=== PATIENT | male | born 1950 | race Asian ===

== ENCOUNTER 2018-04-02 12:18 | Outpatient (CLI) | payer MEDICARE, OTHER ==
--- NOTE | 2018-04-02 13:20 | CT Report ---
Reason: ABSCESS Procedure Date: 04/02/2018 Accession Number: [id number] / [id number] Procedure: CT - Facial Bones W/O CPT Code: FULL RESULT: EXAM: CT MAXILLOFACIAL WITHOUT CONTRAST EXAM DATE: 04/02/2018 01:00 PM. CLINICAL HISTORY: Facial swelling and wound. Kidney transplant patient. COMPARISONS: HEAD W/O 12/03/2013. TECHNIQUE: Thin-section axial images were acquired of the face without contrast. Post-processing: Coronal and sagittal reformats. Other: None. In accordance with CT protocol optimization, one or more of the following dose reduction techniques were utilized for this exam: automated exposure control, adjustment of mA and/or KV based on patient size, or use of iterative reconstructive technique. FINDINGS: Soft Tissue: There is asymmetric subcutaneous tissue stranding, fluid and skin thickening of the right face overlying the right zygomatic arch. There is no soft tissue gas. The region of right facial inflammation and subcutaneous fluid does not appear to represent a well organized abscess but measures 63 x 12 x 36 mm. Orbits: Symmetric and unremarkable. Bones: There is cortical thickening of the wall of the left sphenoid sinus suggesting chronic sinus inflammation. Temporomandibular Joints: There is degenerative disease and irregularity of the left temporal mandibular joint. There is no dislocation. Sinuses: There is opacification of the left sphenoid sinus and bilateral maxillary sinuses. Other: There is a large posterior disk osteophyte spur at the C3-C4 level causing central spinal canal narrowing. IMPRESSION: 1. Right facial phlegmon, edema and fluid consistent with cellulitis, infection, or phlegmon. The fluid does not represent a large organized abscess, but could represent multiple smaller abscesses or phlegmon. 2. Bilateral maxillary and left sphenoid sinus inflammatory disease and opacification. Left sphenoid sinus inflammation is most likely chronic given bony changes. 3. C3-C4 spinal canal stenosis secondary to the disk osteophyte spurring [facility]
== END 2018-04-02 12:19 | disposition home or self-care (01) ==
LOC: DI 12:18
PROVIDERS: ATTEND Physician Assistant
DX: R22.0 Localized swelling, mass and lump, head (principal); J32.0 Chronic maxillary sinusitis; J32.3 Chronic sphenoidal sinusitis; M48.02 Spinal stenosis, cervical region; M50.81 Other cervical disc disorders, high cervical region
CPT/HCPCS: 70486

== ENCOUNTER 2018-04-03 16:11 | Emergency (ER) | payer MEDICARE, OTHER ==
[2018-04-03 16:25] VITALS: BP 161/74
--- NOTE | 2018-04-03 16:45 | ED Physician Documentation ---
PD HPI SKIN - Stated complaint Stated Complaint: LUMP ON FACE/SENT BY DR. Dimitry MISTRY - Chief complaint Chief Complaint: General - History obtained from History obtained from: Patient - History of Present Illness Timing - onset: How many days ago (several days of right facial infection. Started with small sore and got bigger, with some draining fluid. Seen in office yesterday and had culture of surface, given IM rocephin and started on Keflex/Bactrim dual abx. Had facial CT outpt showing inflammation without focal coalescence of fluid. Referred to Surgery and seen this afternoon in surgery clinic. No abscess for draining, so Dr. Dimitry Mistry sent patient to the ER for further evaluation. Patient says the area is feeling less pressure and pain today than it did yesterday.) Timing - details: Gradual onset, Still present Location: Face (right side of face over zygoma area) Quality / character: Painful, Swelling, Draining (with small pustules) Associated symptoms: No: Fever, Myalgias, N/V/D Similar symptoms before: Has not had sx before Recently seen: Clinic Review of Systems Constitutional: denies: Fever, Chills, Myalgias Nose: denies: Rhinorrhea / runny nose, Congestion Throat: denies: Sore throat Respiratory: denies: Cough GI: denies: Vomiting, Diarrhea PD PAST MEDICAL HISTORY - Past Medical History Cardiovascular: Hypertension, High cholesterol Respiratory: None Endocrine/Autoimmune: Type 2 diabetes, HyPOthyroidism GI: GERD : Renal insuffiency (with kidney transplant 2006), Other Psych: None Derm: None - Past Surgical History Past Surgical History: Yes General: Cholecystectomy, Appendectomy, 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 (kidney transplant) - Present Medications Home Medications: Ambulatory Orders Medication Instructions Recorded Confirmed Aspirin Chewable [St Americo 81 mg PO DAILY 12/03/13 04/15/14 Aspirin] Carvedilol [Coreg] 50 mg PO DAILY 12/03/13 04/15/14 Cholecalciferol (Vitamin D3) 2,000 unit PO DAILY 12/03/13 04/15/14 [Vitamin D] Cinacalcet HCl [Sensipar] 30 mg PO DAILY 12/03/13 04/15/14 Docusate Sodium 240 mg PO DAILY 12/03/13 04/15/14 Hydrochlorothiazide 25 mg PO DAILY 12/03/13 04/15/14 Krill Oil 500 mg PO DAILY 12/03/13 04/15/14 Leflunomide [Arava] 10 mg PO DAILY 12/03/13 04/15/14 Levothyroxine Sodium [Synthroid] 25 mcg PO DAILY 12/03/13 04/15/14 Magnesium Oxide [Magnesium] 400 mg PO DAILY 12/03/13 04/15/14 Omeprazole [PriLOSEC] 20 mg PO BID 12/03/13 04/15/14 Potassium Chloride 20 meq PO BID 12/03/13 04/15/14 Prenat Vit Comb.10/Iron/FA/Dha 1 each PO DAILY 12/03/13 04/15/14 [Vitafol-Ob+Dha Combo Pack] Rosuvastatin Calcium [Crestor] 20 mg PO DAILY 12/03/13 04/15/14 Tacrolimus [Prograf] 0.5 mg PO DAILY 12/03/13 04/15/14 Telmisartan [Micardis] 80 mg PO DAILY 12/03/13 04/15/14 amLODIPine [Norvasc] 10 mg PO DAILY 12/03/13 04/15/14 cloNIDine HCl [Clonidine HCl] 0.2 mg PO TID 12/03/13 04/15/14 predniSONE [Deltasone] 5 mg PO ONCE 12/03/13 04/15/14 Insulin Aspart [Novolog] 9 units SUBQ AC 04/15/14 04/15/14 Insulin Glargine,Hum.rec.anlog 10 units SUBQ DAILY 04/15/14 04/15/14 [Lantus] hydrALAZINE [Apresoline] 25 mg ORAL DAILY 04/15/14 04/15/14 Doxycycline Monohydrate 100 mg PO BID #14 tablet 04/03/18 Mupirocin 1 applic TP TID #15 oint...g. 04/03/18 - Allergies Allergies/Adverse Reactions: Allergies Allergy/AdvReac Type Severity Reaction Status Date / Time No Known Drug Allergies Allergy Verified 04/03/18 16:25 - Social History Does the pt smoke?: No Smoking Status: Never smoker Does the pt drink ETOH?: No Does the pt have substance abuse?: No - POLST Patient has POLST: No PD ED PE NORMAL - Vitals Vital signs reviewed: Yes - General General: Alert and oriented X 3, No acute distress, Well developed/nourished - HEENT HEENT: Ears normal, Pharynx benign, Other (right zygoma area with rounded, raised reddened area of skin rash with small pustules on surface. No fluctuance. The skin lesion is movable over the zygoma surface. There is local induration/swelling. ) - Neck Neck: Supple, no meningeal sign, No adenopathy - Cardiac Cardiac: RRR, No murmur - Respiratory Respiratory: Clear bilaterally - Derm Derm: Normal color, Warm and dry Results - Vitals Vitals: Vital Signs - 24 hr 04/03/18 16:22 Temperature 36.5 C Heart Rate 87 Respiratory 20 Rate Blood Pressure 161/74 H O2 Saturation 95 Oxygen O2 Source Room air - Labs Labs: Microbiology 04/03/18 17:05 Wound Culture - Preliminary Face - Right Laboratory Tests 04/03/18 17:32 Sodium 133 L Potassium 4.4 Chloride 112 H Carbon Dioxide 14 L Anion Gap 7.0 BUN 62 H Creatinine 2.8 H Estimated GFR (MDRD) 23 L Glucose 406 H Calcium 9.2 PD MEDICAL DECISION MAKING - ED course Complexity details: re-evaluated patient (he does not seem ill and is feeling improved from yesterday. Creatinine and glucose are elevated. No fever. I feel he can be discharged with close follow up, with collaboration of advice from transplant physician. Patient is followed by Nephrology in [place] and the physician directs he follow up initially with him, rather than .), considered differential (facial infection without distinct abscess. Concern that he is immune compromised. But he is not seeming sick and he says the infection site feels improved since starting abx yesterday. ), d/w patient, d/w sediment remediation consultant (insulation manager physician for transplant team at . Directs to check BMP. His Creatinine was 2 last on their labs. She would prefer Doxycycline over Bactrim if Creatinine elevated. And would want Creatinine and Tacrolimus levels checked in 4-5 days. She did not feel he needed to be hospitalized if he is not appearing sick. ) - Sepsis Event Vital Signs: Vital Signs - 24 hr 04/03/18 16:22 Temperature 36.5 C Heart Rate 87 Respiratory 20 Rate Blood Pressure 161/74 H O2 Saturation 95 Oxygen O2 Source Room air Departure - Departure Disposition: 01 Home, Self Care Clinical Impression: Facial abscess Condition: Stable Record reviewed to determine appropriate education?: Yes Instructions: ED Staph Infec Abx Tx Only Follow-Up: Alen March DO [Primary Care Provider] - Prescriptions: Doxycycline Monohydrate 100 mg PO BID #14 tablet Mupirocin 1 applic TP TID #15 oint...g. Comments: The physician insulation manager for the transplant service was concerned about the interaction of the sulfa antibiotic with your kidney function. She would prefer having you on doxycycline. You can take the 2 antibiotics this evening that you are to have. However get the doxycycline tomorrow and stop the sulfa. Use warm moist towels to the facial infection 2-3 times a day and apply mupirocin ointment after that. Recheck if not improving over the next several days. Make an appointment with your primary care in for 2-3 days from now to have your kidney function rechecked in your tacrolimus level checked as well. Return if worsening. Discharge Date/Time: 04/03/18 18:21
[2018-04-03] MEDS ORDERED: HYDROcod/ACETAM 5/325 MG TABLET PO STA (17:26)
[2018-04-03 17:44] LABS: CALCIUM 9.2 mg/dL (8.5-10.3); CREATININE 2.8 mg/dL (0.6-1.2)
== END 2018-04-03 18:21 | disposition home or self-care (01) ==
LOC: ED 16:11
DX: L02.01 Cutaneous abscess of face (principal); I10 Essential (primary) hypertension; E11.9 Type 2 diabetes mellitus without complications; N28.9 Disorder of kidney and ureter, unspecified; Z79.82 Long term (current) use of aspirin; Z79.4 Long term (current) use of insulin; Z94.0 Kidney transplant status
CPT/HCPCS: 36415; 80048; 87070; 87181; 87205; 99283; A9270

== ENCOUNTER 2018-04-09 07:21 | Outpatient (CLI) | payer MEDICARE, OTHER ==
[2018-04-09 07:49] LABS: ALBUMIN 2.9 g/dL (3.2-5.5); ALBUMIN/GLOBULIN RATIO 0.7 (1.0-2.2); BILIRUBIN,TOTAL 0.3 mg/dL (0.2-1.0); CREATININE 2.6 mg/dL (0.6-1.2); TOTAL PROTEIN 7.1 g/dL (6.7-8.2)
== END 2018-04-09 07:22 | disposition home or self-care (01) ==
LOC: LAB 07:21
PROVIDERS: ATTEND Family Medicine
DX: Z94.0 Kidney transplant status (principal)
CPT/HCPCS: 36415; 80053; 80197

== ENCOUNTER 2018-04-12 12:04 | Outpatient (CLI) | payer MEDICARE, OTHER ==
[2018-04-12 19:06] LABS: ALBUMIN 2.7 g/dL (3.2-5.5); ALBUMIN/GLOBULIN RATIO 0.8 (1.0-2.2); BILIRUBIN,TOTAL 0.5 mg/dL (0.2-1.0); CALCIUM 9.2 mg/dL (8.5-10.3); CREATININE 2.3 mg/dL (0.6-1.2); TOTAL PROTEIN 6.3 g/dL (6.7-8.2)
== END 2018-04-12 12:05 | disposition home or self-care (01) ==
LOC: LAB.WCP 12:04
PROVIDERS: ATTEND Family Medicine
DX: Z94.0 Kidney transplant status (principal)
CPT/HCPCS: 36415; 80053

== ENCOUNTER 2018-04-25 07:11 | Outpatient (CLI) | payer MEDICARE, OTHER ==
[2018-04-25 08:59] LABS: BASOPHILS # (AUTO) 0.1 10^3/uL (0.0-0.1); BASOPHILS % (AUTO) 0.8 %; EOSINOPHILS # (AUTO) 0.1 10^3/uL (0.0-0.7); EOSINOPHILS % (AUTO) 0.8 %; HGB - HEMOGLOBIN 12.2 g/dL (14.0-18.0); LYMPHOCYTES % (AUTO) 21.5 %; MEAN CORPUSCULAR HGB CONC 33.1 g/dL (32.0-36.0); MEAN CORPUSCULAR VOLUME 93.7 fL (80.0-94.0); MEAN PLATELET VOLUME 7.8 fL (7.4-11.4); MONOCYTES # (AUTO) 0.9 10^3/uL (0.0-1.0); MONOCYTES % (AUTO) 9.4 %; NEUTROPHILS # (AUTO) 6.4 10^3/uL (1.5-6.6); NEUTROPHILS % (AUTO) 67.5 %; PLT - PLATELET COUNT 279 10^3/uL (130-450); RED BLOOD COUNT 3.93 10^6/uL (4.70-6.10); RED CELL DISTRIBUTION WIDTH 14.9 % (12.0-15.0); WHITE BLOOD COUNT 9.4 x10^3/uL (4.8-10.8)
[2018-04-25 09:04] LABS: ALBUMIN 3.3 g/dL (3.2-5.5); ALBUMIN/GLOBULIN RATIO 0.9 (1.0-2.2); BILIRUBIN,TOTAL 0.6 mg/dL (0.2-1.0); CALCIUM 9.3 mg/dL (8.5-10.3); CREATININE 2.4 mg/dL (0.6-1.2); TOTAL PROTEIN 6.9 g/dL (6.7-8.2)
[2018-04-25 09:10] LABS: BILIRUBIN,URINE NEGATIVE (NEGATIVE); GLUCOSE, URINE (UA) NEGATIVE (NEGATIVE); KETONES,URINE (UA) NEGATIVE (NEGATIVE); LEUKOCYTE ESTERASE, URINE NEGATIVE (NEGATIVE); NITRITE,URINE NEGATIVE (NEGATIVE); OCCULT BLOOD,URINE TRACE-INTA (NEGATIVE); PH,URINE 8.5 PH (5.0-7.5); PROTEIN,URINE >=300 mg/dL (NEGATIVE); UROBILINOGEN,URINE 0.2 (NORMAL) E.U./dL (NORMAL)
[2018-04-25 09:27] LABS: AMORPHOUS SEDIMENT,UR Few /LPF; BACTERIA,URINE Moderate /HPF (None Seen); CLARITY,URINE HAZY (CLEAR); RBC,URINE 0-5 /HPF (0-5); SQUAMOUS EPITHELIAL CELL,UR NONE SEEN (<= Few)
[2018-04-25 09:28] LABS: CRYSTALS,URINE >50 Triple Phos /LPF
[2018-04-25 09:49] LABS: PROTEIN/CREATININE RATIO,URINE 8.5 (<=0.2)
== END 2018-04-25 07:12 | disposition home or self-care (01) ==
LOC: LAB 07:11
PROVIDERS: ATTEND Specialist
DX: R80.9 Proteinuria, unspecified (principal); Z94.0 Kidney transplant status; Z41.8 Encounter for other procedures for purposes other than remedying health state
CPT/HCPCS: 36415; 80053; 80197; 81001; 81599; 82570; 83970; 84156; 85025; 87077; 87086; 87181; 87799

== ENCOUNTER 2018-06-10 18:33 | Observation (INO) | payer MEDICARE, OTHER ==
[2018-06-10 19:15] LABS: BASOPHILS # (AUTO) 0.1 10^3/uL (0.0-0.1); BASOPHILS % (AUTO) 0.8 %; EOSINOPHILS # (AUTO) 0.2 10^3/uL (0.0-0.7); EOSINOPHILS % (AUTO) 1.4 %; HGB - HEMOGLOBIN 12.5 g/dL (14.0-18.0); LYMPHOCYTES # (AUTO) 1.6 10^3/uL (1.5-3.5); LYMPHOCYTES % (AUTO) 12.9 %; MEAN CORPUSCULAR HEMOGLOBIN 31.6 pg (27.0-31.0); MEAN CORPUSCULAR HGB CONC 33.9 g/dL (32.0-36.0); MEAN CORPUSCULAR VOLUME 93.2 fL (80.0-94.0); MONOCYTES # (AUTO) 0.7 10^3/uL (0.0-1.0); MONOCYTES % (AUTO) 5.5 %; NEUTROPHILS # (AUTO) 9.8 10^3/uL (1.5-6.6); NEUTROPHILS % (AUTO) 79.4 %; PLT - PLATELET COUNT 295 10^3/uL (130-450); RED BLOOD COUNT 3.97 10^6/uL (4.70-6.10); RED CELL DISTRIBUTION WIDTH 14.6 % (12.0-15.0); WHITE BLOOD COUNT 12.4 x10^3/uL (4.8-10.8)
[2018-06-10 19:27] LABS: ALBUMIN 3.6 g/dL (3.2-5.5); ALBUMIN/GLOBULIN RATIO 0.9 (1.0-2.2); BILIRUBIN,TOTAL 0.6 mg/dL (0.2-1.0); CALCIUM 9.7 mg/dL (8.5-10.3); CREATININE 3.1 mg/dL (0.6-1.2); TOTAL PROTEIN 7.7 g/dL (6.7-8.2)
[2018-06-10 19:30] LABS: BILIRUBIN,URINE NEGATIVE (NEGATIVE); GLUCOSE, URINE (UA) NEGATIVE (NEGATIVE); KETONES,URINE (UA) NEGATIVE (NEGATIVE); LEUKOCYTE ESTERASE, URINE NEGATIVE (NEGATIVE); NITRITE,URINE NEGATIVE (NEGATIVE); OCCULT BLOOD,URINE NEGATIVE (NEGATIVE); PROTEIN,URINE 100 mg/dL (NEGATIVE); UROBILINOGEN,URINE 0.2 (NORMAL) E.U./dL (NORMAL)
[2018-06-10 19:40] LABS: CLARITY,URINE TURBID (CLEAR)
[2018-06-10] MEDS ORDERED: ONDANSETRON 4 MG/2 ML VIAL IVP STA (20:16)
[2018-06-10] MEDS ORDERED: SODIUM CHLORIDE 0.9% 1,000 ML IV ONE (20:16)
[2018-06-10] MEDS ORDERED: MORPHINE 2 MG/ML CARPUJECT IVP STA (20:16)
--- NOTE | 2018-06-10 20:19 | ED Physician Documentation ---
History of Present Illness - Stated complaint Stated Complaint: STOMACH PX - Chief complaint Chief Complaint: Abd Pain - Additonal information Additional information: hx from pt 68 male s/p kidney transplant 2009 [facility] baseline creat about 2.3 also s/p bladder removal for cancer and has a urostomy an s/p appy chol too to ED with abd pain inset 8 AM today no fever chills no NV no bloody black BM no blood in urine no rad to chest or back pain is to upper abd and is severe pt meds are not yet updated in [place] - I reviewed his list and his meds are as follows tacrolimus, sensipar prednisone synthroid rosuvastatin coreg clonidine norvasc micardis lasix asa mag K PNV Vit D3 prilosec colace insulin NKDA Review of Systems Constitutional: denies: Fever, Chills Cardiac: denies: Chest pain / pressure Respiratory: denies: Dyspnea GI: reports: Abdominal Pain. 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 (kidney transplant) - Present Medications Home Medications: Ambulatory Orders Medication Instructions Recorded Confirmed Aspirin Chewable [St Americo 81 mg PO DAILY 12/03/13 04/15/14 Aspirin] Carvedilol [Coreg] 50 mg PO DAILY 12/03/13 04/15/14 Cholecalciferol (Vitamin D3) 2,000 unit PO DAILY 12/03/13 04/15/14 [Vitamin D] Cinacalcet HCl [Sensipar] 30 mg PO DAILY 12/03/13 04/15/14 Docusate Sodium 240 mg PO DAILY 12/03/13 04/15/14 Hydrochlorothiazide 25 mg PO DAILY 12/03/13 04/15/14 Krill Oil 500 mg PO DAILY 12/03/13 04/15/14 Leflunomide [Arava] 10 mg PO DAILY 12/03/13 04/15/14 Levothyroxine Sodium [Synthroid] 25 mcg PO DAILY 12/03/13 04/15/14 Magnesium Oxide [Magnesium] 400 mg PO DAILY 12/03/13 04/15/14 Omeprazole [PriLOSEC] 20 mg PO BID 12/03/13 04/15/14 Potassium Chloride 20 meq PO BID 12/03/13 04/15/14 Prenat Vit Comb.10/Iron/FA/Dha 1 each PO DAILY 12/03/13 04/15/14 [Vitafol-Ob+Dha Combo Pack] Rosuvastatin Calcium [Crestor] 20 mg PO DAILY 12/03/13 04/15/14 Tacrolimus [Prograf] 0.5 mg PO DAILY 12/03/13 04/15/14 Telmisartan [Micardis] 80 mg PO DAILY 12/03/13 04/15/14 amLODIPine [Norvasc] 10 mg PO DAILY 12/03/13 04/15/14 cloNIDine HCl [Clonidine HCl] 0.2 mg PO TID 12/03/13 04/15/14 predniSONE [Deltasone] 5 mg PO ONCE 12/03/13 04/15/14 Insulin Aspart [Novolog] 9 units SUBQ AC 04/15/14 04/15/14 Insulin Glargine,Hum.rec.anlog 10 units SUBQ DAILY 04/15/14 04/15/14 [Lantus] hydrALAZINE [Apresoline] 25 mg ORAL DAILY 04/15/14 04/15/14 Doxycycline Monohydrate 100 mg PO BID #14 tablet 04/03/18 Mupirocin 1 applic TP TID #15 oint...g. 04/03/18 - Allergies Allergies/Adverse Reactions: Allergies Allergy/AdvReac Type Severity Reaction Status Date / Time No Known Drug Allergies Allergy Verified 04/03/18 16:25 - Social History Does the pt smoke?: No Smoking Status: Never smoker Does the pt drink ETOH?: No Does the pt have substance abuse?: No - Immunizations Immunizations are current?: Yes - POLST Patient has POLST: No PD ED PE NORMAL - Vitals Vital signs reviewed: Yes - General General: Alert and oriented X 3 - Neck Neck: Supple, no meningeal sign - Cardiac Cardiac: RRR - Respiratory Respiratory: No respiratory distress, Clear bilaterally - Abdomen Abdomen: Other (multiple scars, RLQ urostomy, TTP upper abd s distension, aorta palp but does not feel enlarged, no hernia) - Derm Derm: Normal color - Extremities Extremities: No deformity - Neuro Neuro: Alert and oriented X 3 Results - Vitals Vitals: Vital Signs - 24 hr 06/10/18 06/10/18 06/10/18 18:55 19:28 21:05 Temperature 36.5 C Heart Rate 83 74 83 Respiratory 18 16 16 Rate Blood Pressure 198/82 H 175/76 H 162/84 H O2 Saturation 100 100 99 Oxygen O2 Source Room air - Labs Labs: Laboratory Tests 06/10/18 06/10/18 06/10/18 19:08 19:08 19:17 WBC 12.4 H RBC 3.97 L Hgb 12.5 L Hct 37.0 L MCV 93.2 MCH 31.6 H MCHC 33.9 RDW 14.6 Plt Count 295 MPV 8.0 Neut # (Auto) 9.8 H Lymph # (Auto) 1.6 Runnels # (Auto) 0.7 Eos # (Auto) 0.2 Baso # (Auto) 0.1 Absolute Nucleated RBC 0.00 Nucleated RBC % 0.0 Sodium 130 L Potassium 3.8 Chloride 105 Carbon Dioxide 13 L Anion Gap 12.0 BUN 75 H Creatinine 3.1 H Estimated GFR (MDRD) 20 L Glucose 321 H Calcium 9.7 Total Bilirubin 0.6 AST 16 ALT 23 Alkaline Phosphatase 138 H Total Protein 7.7 Albumin 3.6 Globulin 4.1 Albumin/Globulin Ratio 0.9 L Lipase 71 H Urine Color YELLOW Urine Clarity TURBID Urine pH 8.0 H Ur Specific [place] 1.020 Urine Protein 100 H Urine Glucose (UA) NEGATIVE Urine Ketones NEGATIVE Urine Occult Blood NEGATIVE Urine Nitrite NEGATIVE Urine Bilirubin NEGATIVE Urine Urobilinogen 0.2 (NORMAL) Ur Leukocyte Esterase NEGATIVE Urine RBC 0-5 Urine WBC 0-3 Ur Squamous Epith Cells NONE SEEN Urine Crystals 11-25 Triple Phos Amorphous Sediment Few Urine Bacteria Many H Ur Microscopic Review INDICATED Urine Culture Comments INDICATED - Rads (name of study) CTAP Radiology: See rad report (partial SBO with focal transition point to mid abd. diverticulosis s itis, LLQ renal transplant without hydro or perinephric fluid) PD MEDICAL DECISION MAKING - ED course ED course: pt reports no NV and has been having flatus but his CT shows a partial SBO he is approx 10 yr s/p transplant his creat is bumped today likely 2/2 poor PO intake and dehydration at this point initial tx would be bowel rst and IVF will discuss with Rashard hospitalist and surgeon re keeping pt here pag[place]arco a surgeon at [phone] - Dr Mistry agrees to consult onel hospitalist at [phone] will [address] pt in obs addendum - urine showed no WBC but + bacteria - pt states his regulatory consultant in [place] Dr Velásquez recently treated him for bacteria in urine with cipro - spoke again with Dr Agustin hospitalist and he recommends not to give antibiotics in the ED - states the hospitalist team will discuss with the pt regulatory consultant Departure - Departure Disposition: ED Place in Observation Clinical Impression: Partial small bowel obstruction, Dehydration, Renal insufficiency, Hyperglycemia, Bacteria in urine Condition: Fair Discharge Date/Time: 06/10/18 22:12
[2018-06-10 20:31] LABS: AMORPHOUS SEDIMENT,UR Few /LPF; BACTERIA,URINE Many /HPF (None Seen); CRYSTALS,URINE 11-25 Triple Phos /LPF; RBC,URINE 0-5 /HPF (0-5); SQUAMOUS EPITHELIAL CELL,UR NONE SEEN (<= Few)
--- NOTE | 2018-06-10 21:01 | CT Report ---
Reason: abd pain Procedure Date: 06/10/2018 Accession Number: [id number] / [id number] Procedure: CT - Abdomen/Pelvis W/O CPT Code: FULL RESULT: EXAM: CT ABDOMEN AND PELVIS EXAM DATE: 06/10/2018 08:39 PM. CLINICAL HISTORY: Abd pain. COMPARISONS: ABD/PEL 08/20/2006 12:03 AM. TECHNIQUE: Routine helical CT imaging was performed through the abdomen and pelvis. IV contrast: No. Enteric contrast: No. Reconstructions: Coronal and sagittal. In accordance with CT protocol optimization, one or more of the following dose reduction techniques were utilized for this exam: automated exposure control, adjustment of mA and/or KV based on patient size, or use of iterative reconstructive technique. FINDINGS: Lung Bases: Unremarkable. Liver: The liver is normal in size and contour. Gallbladder/Bile Ducts: The gallbladder is surgically absent. Spleen: Normal in size. Pancreas: Normal. Adrenal Glands: Normal. Kidneys: There is atrophy of the [place] kidneys. There is no hydronephrosis of the [place] kidneys. There is a left lower quadrant renal transplant. There is no perinephric fluid collection. No kidney stones or hydronephrosis. Peritoneal Cavity/Bowel: The stomach appears mildly distended. There are multiple dilated small bowel loops. There are several air-fluid levels within the small bowel. Small bowel loops in the left abdomen measures 3.6 cm in diameter. There are a moderate number of diverticula within the colon. There is an ostomy in the right mid abdomen. There is focal narrowing of small bowel loops best seen on coronal images 19-21. There is a transition zone in the central abdomen. There is fecalization of small bowel just proximal to this area. There is mesenteric architectural distortion. There is small intraperitoneal free fluid. Pelvic Organs: Urinary bladder not visualized. Vasculature: There is diffuse calcification of the abdominal aorta without aneurysm. Bones: No significant abnormality. Other: None. IMPRESSION: 1. Findings suspicious for a partial small bowel obstruction with a focal transition zone identified in the central abdomen, coronal image 22. 2. Left lower quadrant renal transplant without hydronephrosis or perinephric fluid collection. 3. Colonic diverticulosis without acute diverticulitis. [facility]
[2018-06-10] MEDS ORDERED: PROCHLORPERAZINE 10 MG/2 ML VIAL IVP PRN (21:29)
[2018-06-10] MEDS ORDERED: SODIUM CHLORIDE FLUSH 0.9% 10 ML SYRINGE IVP PRN (21:29)
[2018-06-10] MEDS ORDERED: MORPHINE 2 MG/ML CARPUJECT IVP PRN (21:29)
[2018-06-10] MEDS ORDERED: oxyCODONE 5 MG TABLET PO PRN ×2 (21:29)
[2018-06-10] MEDS ORDERED: ZOLPIDEM 5 MG TABLET PO PRN (21:29)
[2018-06-10] MEDS ORDERED: ACETAMINOPHEN 325 MG TABLET PO PRN (21:29)
[2018-06-10] MEDS ORDERED: PROMETHAZINE 25 MG/1 ML VIAL IM PRN (21:29)
[2018-06-10] MEDS ORDERED: ONDANSETRON 4 MG/2 ML VIAL IVP PRN (21:29)
--- NOTE | 2018-06-10 21:40 | HISTORY & PHYSICAL EXAMINATION ---
Chief Complaint - Chief Complaint Chief Complaint: Abdominal pain History of Present Illness - Admitted From Admitted From:: Emergency Department - History Obtained From Records Reviewed: Yes History obtained from: Patient Exam Limitations: None - History of Present Illness HPI Comment/Other: Patient is a very pleasant 68-year-old [place] gentleman with a unfortunate complicated past medical history which includes renal transplant in 2009 with chronic kidney disease of his transplanted kidney on immunosuppressants, bladder cancer in 2017 status post bladder, prostate and lymph node resection status post urostomy, insulin-dependent diabetes mellitus, hypertension, hyperlipidemia and hypothyroidism who presented to the emergency department with a chief complaint of abdominal pain. The patient states that he was in his normal state of health until 8 AM this morning. He states that that time he began to experience abdominal pain. He states that it came on suddenly and was located just above his umbilicus. He states that it radiated up and down his mid abdomen. He states that the pain was severe at about 9 out of 10. He states that it was constant but the intensity would go up and down throughout the day varying between a 7 and a 10. He states that the pain was sharp. He states that with the pain he had a decreased appetite and did not eat anything all day. He states that he did try to drink fluid with hot tea, hot water and coffee. He states that he was not nauseated and did not vomit. He denies any diarrhea. He states his last bowel movement was last night but he feels as though he has passed gas today. He denies any abdominal distention. He does admit to having similar symptoms once before after his renal transplant and at that time he states he drove himself to the hospital in [place] and symptoms resolved without him needing to be admitted. He states that when symptoms did not resolve today he finally came into the emergency department. The patient states that the pain did not improve until he received morphine in the emergency department. He states with the morphine his pain is much better. He states that he did eat a small apple early this morning before the pain started. The patient denies any fevers or chills. He denies any flank pain or blood in his urostomy bag. Patient denies any headaches, blurred vision, runny nose, sore throat, nasal congestion, difficulty swallowing, chest pain, cough, shortness of air, orthopnea, PND, increased lower extremity swelling, joint swelling, joint pain, muscle aches, back pain, neck stiffness, recent unintentional weight loss, dizziness, lightheadedness, skin changes, rash, night sweats or any focal neurologic deficits. On presentation to the emergency department the patient was afebrile but was in significant distress due to his abdominal pain and was hypertensive with a blood pressure of 198/82. The patient's heart rate and oxygen saturation were within normal limits. The patient underwent routine lab work which revealed an elevated white blood cell count of 12.4, chronic anemia with a hemoglobin of 12. 5, hyponatremia with a sodium of 130, and elevated creatinine of 3.1 up from a baseline of 2.3 about 2 months ago and hyperglycemia with a blood glucose of 321. The patient did undergo urine analysis of his urine in the urostomy bag which revealed many bacteria with 0-3 WBCs. The patient states that he was treated for a urinary tract infection just over a month ago. The patient finally underwent imaging with an abdominal CT which revealed findings suspicious for a partial small bowel obstruction with a focal transition zone identified in the central abdomen. The emergency room physician spoke with the surgeon electronic equipment maint tech Dr. Mistry who advised that the patient be admitted to the hospitalist team for medical management of partial small bowel obstruction. The patient was placed in observation for partial small bowel obstruction. History - Past Medical History Cardiovascular: reports: Hypertension, High cholesterol Respiratory: reports: None Endocrine/Autoimmune: reports: Type 2 diabetes, HyPOthyroidism GI: reports: GERD : reports: Renal insuffiency (Chronic kidney disease stage IV status post renal transplant), Other (Renal transplant in 2009 with ongoing chronic kidney disease stage IV, Bladder cancer status post bladder resection, prostatectomy and lymph node resection in 2017.) Psych: reports: None Derm: reports: None - Past Surgical History General: reports: Cholecystectomy, Appendectomy, Colonoscopy /FINANCIAL EXAMINER: reports: Other (kidney transplant, Bladder resection, prostatectomy, lymph node resection) - Family & Social History Family History: Mother: (Mother and father both at young age of unknown causes.), Father: , Brother: , Other family: Hypertension (Daughter) Family History Comment/Other: The patient's father at the age of 55 and his 2 brothers in their 50s. The patient does not know the cause of their . He states that his mother when he was 8 years old and he does not know the cause of her either. He does state that his daughter has hypertension. Living arrangement: At home Living Situation: With spouse/s.o. Social History Notes: The patient lives in [place] with his . They have been for 47 years. They have 3 children together. The patient is originally from the [facility] and moved to the [facility] in 1967. He is retired [employer]. He states that he used to smoke 1 or 2 cigarettes a day for about 5 years but quit in 1977. He states that he used to drink socially but also quit drinking in 1977. He denies any illicit drug use. - POLST Patient has POLST: No POLST Status: Full Code Meds/Allgy - Home Medications Home Medications: Ambulatory Orders Medication Instructions Recorded Confirmed Aspirin Chewable [[place] 81 mg PO DAILY 12/03/13 04/15/14 Aspirin] Carvedilol [Coreg] 50 mg PO DAILY 12/03/13 04/15/14 Cholecalciferol (Vitamin D3) 2,000 unit PO DAILY 12/03/13 04/15/14 [Vitamin D] Cinacalcet HCl [Sensipar] 30 mg PO DAILY 12/03/13 04/15/14 Docusate Sodium 240 mg PO DAILY 12/03/13 04/15/14 Hydrochlorothiazide 25 mg PO DAILY 12/03/13 04/15/14 Krill Oil 500 mg PO DAILY 12/03/13 04/15/14 Leflunomide [Arava] 10 mg PO DAILY 12/03/13 04/15/14 Levothyroxine Sodium [Synthroid] 25 mcg PO DAILY 12/03/13 04/15/14 Magnesium Oxide [Magnesium] 400 mg PO DAILY 12/03/13 04/15/14 Omeprazole [PriLOSEC] 20 mg PO BID 12/03/13 04/15/14 Potassium Chloride 20 meq PO BID 12/03/13 04/15/14 Prenat Vit Comb.10/Iron/FA/Dha 1 each PO DAILY 12/03/13 04/15/14 [Vitafol-Ob+Dha Combo Pack] Rosuvastatin Calcium [Crestor] 20 mg PO DAILY 12/03/13 04/15/14 Tacrolimus [Prograf] 0.5 mg PO DAILY 12/03/13 04/15/14 Telmisartan [Micardis] 80 mg PO DAILY 12/03/13 04/15/14 amLODIPine [Norvasc] 10 mg PO DAILY 12/03/13 04/15/14 cloNIDine HCl [Clonidine HCl] 0.2 mg PO TID 12/03/13 04/15/14 predniSONE [Deltasone] 5 mg PO ONCE 12/03/13 04/15/14 Insulin Aspart [Novolog] 9 units SUBQ AC 04/15/14 04/15/14 Insulin Glargine,Hum.rec.anlog 10 units SUBQ DAILY 04/15/14 04/15/14 [Lantus] hydrALAZINE [Apresoline] 25 mg ORAL DAILY 04/15/14 04/15/14 Doxycycline Monohydrate 100 mg PO BID #14 tablet 04/03/18 Mupirocin 1 applic TP TID #15 oint...g. 04/03/18 - Allergies Allergies/Adverse Reactions: Allergies Allergy/AdvReac Type Severity Reaction Status Date / Time No Known Drug Allergies Allergy Verified 04/03/18 16:25 Review of Systems - Other Findings Other Findings: A comprehensive review of systems was performed the pertinent positives and nega tives are stated above in the HPI and the remainder of the review of systems is negative. Prior Level of Functionality: The patient is completely independent with all his activities of daily living. Exam - Vital Signs Reviewed Vital Signs: Yes Vital Signs: Vital Signs x48h Temp Pulse Resp BP Pulse Ox 06/10/18 21:05 83 16 162/84 H 99 06/10/18 19:28 74 16 175/76 H 100 06/10/18 18:55 36.5 C 83 18 198/82 H 100 - Physical Exam General Appearance: positive: No acute distress, Alert Eyes Bilateral: positive: Normal inspection, PERRL, EOMI, No lid inflammation, Conjunctivae nml, No scleral icterus ENT: positive: ENT inspection nml, Pharynx nml, Dry mucous membranes. negative: Purulent nasal drainage, Pharyngeal erythema, Oral lesions Neck: positive: Nml inspection, Thyroid nml, No JVD, Trachea midline. negative: Thyromegaly, Lymphadenopathy (R), Lymphadenopathy (L), Stiff neck, Carotid bruit, Tracheal deviation Respiratory: positive: Chest non-tender, No respiratory distress, Breath sounds nml. negative: Wheezes, Rales, Rhonchi Cardiovascular: positive: Regular rate & rhythm, No murmur, No gallop Peripheral Pulses: positive: 2+ Abdomen: positive: No organomegaly, Tenderness (Mild tenderness in the periumbilical area above his urostomy bag. There is mild distention. No rebound, guarding or any peritoneal signs.), Abnml bowel sounds (Decreased bowel sounds), Other (Urostomy bag in place and surrounding skin looks clean). negative: Guarding, Rebound, Hepatomegaly Back: positive: Nml inspection. negative: CVA tenderness (R), CVA tenderness (L) Skin: positive: Color nml, No rash, Warm, Dry. negative: Cyanosis, Diaphoresis, Pallor, Decubitus Extremities: positive: Non-tender, Full ROM, Nml appearance, No pedal edema Neurologic/Psychiatric: positive: Oriented x3, CN's nml (2-12), Motor nml, Sensation nml, Mood/affect nml Conclusion/Plan - Problem List (1) Partial small bowel obstruction Conclusion/Plan: Patient is a 68-year-old gentleman with an extensive history of surgeries including a renal transplant, bladder resection, prostatectomy, appendectomy and cholecystectomy who presented to the emergency department with abdominal pain that was sudden in onset. The pain was associated with decreased appetite and remained constant throughout the day. On presentation to the emergency department the patient had a mild leukocytosis, was hyponatremic and hyperglycemic. The patient's CT abdomen/pelvis revealed a small bowel obstruction with a focal transition zone in the central abdomen. Patient was placed in observation for medical management of small bowel obstruction. Plan: IV fluids N.p.o. except meds IV morphine for pain control IV Zofran and Compazine for nausea control Surgical consultation Patient would likely need to be transferred to a tertiary care center Hospital in the case that he needed surgical intervention for this small bowel obstruction as he is a very complicated patient on immunosuppressants with renal transplant and chronic kidney disease stage IV and a complicated surgical history. (2) Acute on chronic renal failure Conclusion/Plan: Patient has acute on chronic kidney failure. The patient has a transplanted kidney which has now developed chronic kidney disease with CKD stage IV. His creatinine from 2 months ago was 2.3 but on presentation today he has acute on chronic renal failure with a creatinine of 3.1 and a BUN of 75. The patient is acidotic with a bicarb of 13. The patient still has good urine output and potassium is within normal limits. The patient appears to be dry on examination and was unable to tolerate much throughout the day due to his partial small bowel obstruction. Patient appears to have some mild prerenal azotemia from dehydration. Plan: IV fluids Avoid nephrotoxic agents Continue Prograf Monitor creatinine and electrolytes daily. Qualifiers: Acute renal failure type: unspecified Chronic kidney disease stage: stage 4 (severe) Qualified Code(s): N17.9 - Acute kidney failure, unspecified; N18.4 - Chronic kidney disease, stage 4 (severe) (3) UTI (urinary tract infection) Conclusion/Plan: The patient presented with abdominal pain and leukocytosis. Patient did have a partial small bowel obstruction and acute on chronic renal failure. Patient also underwent a urine analysis which did reveal 0-3 WBCs with bacteria. Given that the patient is immune O compromised due to immunosuppressants for his renal transplant we will treat the patient's bacteriuria with IV antibiotics. Plan: IV ceftriaxone IV fluids Consult with patient's top hat body maker and transplant specialist to see if antibiotics should be continued Follow-up urine culture Qualifiers: Urinary tract infection type: catheter-associated UTI Indwelling urinary catheter type: cystostomy catheter Encounter type: initial encounter Qualified Code(s): T83.510A - Infection and inflammatory reaction due to cystostomy catheter, initial encounter; N39.0 - Urinary tract infection, site not specified (4) History of renal transplant Conclusion/Plan: Patient is a history of a renal transplant in 2008. The patient is unaware of the cause of his renal failure however he states he did get a biopsy prior to his transplant. My guess is likely patient had renal failure secondary to hypertension and diabetes. He now appears to have chronic kidney disease of his current transplanted kidney with CKD stage IV. The patient presented with acu te on chronic renal failure and his creatinine is now up to 3.1. The patient also appears to have a urinary tract infection as he did have bacteria growing in his urostomy bag on urine analysis. Plan: Continue immunosuppressants with Prograf Monitor renal function IV fluids Avoid nephrotoxic agents Treat urinary tract infection with IV antibiotics Consult with patient's top hat body maker and transplant specialist in the morning to get further recommendations. (5) Hypertension Conclusion/Plan: Patient has a history of hypertension and on presentation the patient's blood pressure is significantly elevated at 198/82. It appears this was likely secondary to his pain as after the morphine the patient's blood pressure did settle down. Patient's blood pressure however is still elevated. We will continue the patient on his home antihypertensive medications. Likely patient's blood pressure has been worsening due to his chronic kidney disease. We will m onitor his blood pressure and titrate medications as needed. Qualifiers: Hypertension type: essential hypertension Qualified Code(s): I10 - Esse ntial (primary) hypertension (6) Diabetes Conclusion/Plan: The patient does have a history of insulin-dependent diabetes. According to the patient he does not take Lantus and is only using NovoLog with meals at home. On presentation the patient's blood glucose is significantly elevated at 321. This may be due to ongoing stress due to his small bowel obstruction as well as ongoing urinary tract infection. Plan: Patient be placed on NPO sliding scale insulin Patient will be n.p.o. 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 Patient's sodium on presentation is 130 which is down from a normal baseline. The patient appears to have hypovolemic hyponatremia. Patient will be given IV fluids and we will continue to monitor his sodium. (8) Hypothyroidism Conclusion/Plan: Patient has a history of hypothyroidism and is on 25 mg of levothyroxine at home. We will continue his home dose of levothyroxine and check his TSH in the morning. Qualifiers: Hypothyroidism type: unspecified Qualified Code(s): E03.9 - Hypothyroidism, unspecified (9) Hyperlipidemia Conclusion/Plan: The patient has a history of hyperlipidemia. The patient is on statin at home. We will continue the patient on Lipitor while he is hospitalized. Qualifiers: Hyperlipidemia type: unspecified Qualified Code(s): E78.5 - Hyperlipidemia, unspecified - Lab Results Lab results reviewed: Yes Fish Bones: 06/10/18 19:08 06/10/18 19:08 Other Lab Results: Laboratory Results WBC 12.4 x10^3/uL (4.8-10.8) H 06/10/18 19:08 RBC 3.97 10^6/uL (4.70-6.10) L 06/10/18 19:08 Hgb 12.5 g/dL (14.0-18.0) L 06/10/18 19:08 Hct 37.0 % (42.0-52.0) L 06/10/18 19:08 MCV 93.2 fL (80.0-94.0) 06/10/18 19:08 MCH 31.6 pg (27.0-31.0) H 06/10/18 19:08 MCHC 33.9 g/dL (32.0-36.0) 06/10/18 19:08 RDW 14.6 % (12.0-15.0) 06/10/18 19:08 Plt Count 295 10^3/uL (130-450) 06/10/18 19:08 MPV 8.0 fL (7.4-11.4) 06/10/18 19:08 Neut # (Auto) 9.8 10^3/uL (1.5-6.6) H 06/10/18 19:08 Lymph # (Auto) 1.6 10^3/uL (1.5-3.5) 06/10/18 19:08 [place] # (Auto) 0.7 10^3/uL (0.0-1.0) 06/10/18 19:08 Eos # (Auto) 0.2 10^3/uL (0.0-0.7) 06/10/18 19:08 Baso # (Auto) 0.1 10^3/uL (0.0-0.1) 06/10/18 19:08 Absolute Nucleated RBC 0.00 x10^3/uL 06/10/18 19:08 Nucleated RBC % 0.0 /100WBC 06/10/18 19:08 Sodium 130 mmol/L (135-145) L 06/10/18 19:08 Potassium 3.8 mmol/L (3.5-5.0) 06/10/18 19:08 Chloride 105 mmol/L (101-111) 06/10/18 19:08 Carbon Dioxide 13 mmol/L (21-32) L 06/10/18 19:08 Anion Gap 12.0 (6-13) 06/10/18 19:08 BUN 75 mg/dL (6-20) H 06/10/18 19:08 Creatinine 3.1 mg/dL (0.6-1.2) H 06/10/18 19:08 Estimated GFR (MDRD) 20 (>89) L 06/10/18 19:08 Glucose 321 mg/dL (70-100) H 06/10/18 19:08 Calcium 9.7 mg/dL (8.5-10.3) 06/10/18 19:08 Total Bilirubin 0.6 mg/dL (0.2-1.0) 06/10/18 19:08 AST 16 IU/L (10-42) 06/10/18 19:08 ALT 23 IU/L (10-60) 06/10/18 19:08 Alkaline Phosphatase 138 IU/L (42-121) H 06/10/18 19:08 Total Protein 7.7 g/dL (6.7-8.2) 06/10/18 19:08 Albumin 3.6 g/dL (3.2-5.5) 06/10/18 19:08 Globulin 4.1 g/dL (2.1-4.2) 06/10/18 19:08 Albumin/Globulin Ratio 0.9 (1.0-2.2) L 06/10/18 19:08 Lipase 71 U/L (22-51) H 06/10/18 19:08 Urine Color YELLOW 06/10/18 19:17 Urine Clarity TURBID (CLEAR) 06/10/18 19:17 Urine pH 8.0 PH (5.0-7.5) H 06/10/18 19:17 Ur Specific [place] 1.020 (1.002-1.030) 06/10/18 19:17 Urine Protein 100 mg/dL (NEGATIVE) H 06/10/18 19:17 Urine Glucose (UA) NEGATIVE mg/dL (NEGATIVE) 06/10/18 19:17 Urine Ketones NEGATIVE mg/dL (NEGATIVE) 06/10/18 19:17 Urine Occult Blood NEGATIVE (NEGATIVE) 06/10/18 19:17 Urine Nitrite NEGATIVE (NEGATIVE) 06/10/18 19:17 Urine Bilirubin NEGATIVE (NEGATIVE) 06/10/18 19:17 Urine Urobilinogen 0.2 (NORMAL) E.U./dL (NORMAL) 06/10/18 19:17 Ur Leukocyte Esterase NEGATIVE (NEGATIVE) 06/10/18 19:17 Urine RBC 0-5 /HPF (0-5) 06/10/18 19:17 Urine WBC 0-3 /HPF (0-3) 06/10/18 19:17 Ur Squamous Epith Cells NONE SEEN (<= Few) 06/10/18 19:17 Urine Crystals 11-25 Triple Phos /LPF 06/10/18 19:17 Amorphous Sediment Few /LPF 06/10/18 19:17 Urine Bacteria Many /HPF (None Seen) H 06/10/18 19:17 Ur Microscopic Review INDICATED 06/10/18 19:17 Urine Culture Comments INDICATED 06/10/18 19:17 - Diagnostic Imaging Results Diagnostic Imaging Results: positive: Final report reviewed Diagnostic Imaging Results Comments: CT abdomen/pelvis Impression: 1. Findings suspicious for his partial small bowel obstruction with a focal transition zone identified in the central abdomen. 2. Left lower quadrant renal transplant without hydronephrosis or perinephric fluid collection. 3. Colonic diverticulosis without acute diverticulitis. Core Measures - Anticipated LOS I expect patient to be DC'd or transferred within 96 hours.: Yes - DVT/VTE - Prophylaxis VTE/DVT Device ordered at admit?: Yes
[2018-06-10] MEDS ORDERED: predniSONE 5 MG TABLET PO SCH (22:00)
[2018-06-10] MEDS ORDERED: SODIUM CHLORIDE 0.9% 1,000 ML IV SCH (22:00)
[2018-06-10] MEDS: cloNIDine 0.1 MG TABLET PO SCH (22:41)
[2018-06-10] MEDS: SODIUM CHLORIDE 0.9% 1,000 ML IV SCH (22:57)
[2018-06-10] MEDS ORDERED: cefTRIAXone 1 GM in SODIUM CHLORIDE 0.9% MINIBAG 100 ML IV SCH (23:00)
[2018-06-11] MEDS: SODIUM CHLORIDE FLUSH 0.9% 10 ML SYRINGE IVP SCH ×2 (00:15→12:56)
[2018-06-11] MEDS: INSULIN REGULAR HUMAN 100 UNIT/1 ML 10 ML MDV SUBQ SCH ×3 (00:31→12:20)
[2018-06-11 05:29] LABS: BASOPHILS # (AUTO) 0.1 10^3/uL (0.0-0.1); BASOPHILS % (AUTO) 0.7 %; EOSINOPHILS % (AUTO) 0.3 %; HGB - HEMOGLOBIN 11.9 g/dL (14.0-18.0); LYMPHOCYTES # (AUTO) 1.1 10^3/uL (1.5-3.5); LYMPHOCYTES % (AUTO) 9.1 %; MEAN CORPUSCULAR HEMOGLOBIN 31.4 pg (27.0-31.0); MEAN CORPUSCULAR HGB CONC 33.7 g/dL (32.0-36.0); MEAN CORPUSCULAR VOLUME 93.2 fL (80.0-94.0); MEAN PLATELET VOLUME 7.7 fL (7.4-11.4); MONOCYTES # (AUTO) 0.7 10^3/uL (0.0-1.0); MONOCYTES % (AUTO) 5.7 %; NEUTROPHILS # (AUTO) 10.5 10^3/uL (1.5-6.6); NEUTROPHILS % (AUTO) 84.2 %; PLT - PLATELET COUNT 249 10^3/uL (130-450); RED BLOOD COUNT 3.77 10^6/uL (4.70-6.10); WHITE BLOOD COUNT 12.5 x10^3/uL (4.8-10.8)
[2018-06-11 05:35] LABS: INR 0.9 (0.8-1.2); PT - PROTHROMBIN TIME 10.7 secs (9.9-12.6)
[2018-06-11 05:42] LABS: ALBUMIN/GLOBULIN RATIO 0.8 (1.0-2.2); BILIRUBIN,TOTAL 0.7 mg/dL (0.2-1.0); CALCIUM 9.1 mg/dL (8.5-10.3); CREATININE 2.5 mg/dL (0.6-1.2); MAGNESIUM 2.1 mg/dL (1.7-2.8); PHOSPHORUS 3.9 mg/dL (2.5-4.6); TOTAL PROTEIN 6.7 g/dL (6.7-8.2)
[2018-06-11 05:49] LABS: HB2 TOTAL 12.5 g/dL; HEMOGLOBIN A1C 1.04 g/dL; HEMOGLOBIN A1C % 9.8 % (4.6-6.2)
[2018-06-11] MEDS: cloNIDine 0.1 MG TABLET PO SCH ×2 (06:39→13:21)
[2018-06-11] MEDS ORDERED: LEVOTHYROXINE 25 MCG TABLET PO SCH (07:00)
[2018-06-11] MEDS ORDERED: PANTOPRAZOLE 40 MG VIAL IVP SCH (07:00)
[2018-06-11] MEDS ORDERED: ATORVASTATIN 40 MG TABLET PO SCH (09:00)
[2018-06-11] MEDS ORDERED: INSULIN GLARGINE 300 UNIT/3 ML PEN SUBQ SCH (09:00)
[2018-06-11] MEDS ORDERED: amLODIPine 5 MG TABLET PO SCH (09:00)
[2018-06-11] MEDS ORDERED: MAGNESIUM OXIDE 400 MG TABLET PO SCH (09:00)
[2018-06-11] MEDS ORDERED: ASPIRIN CHEW 81 MG TABLET PO SCH (09:00)
[2018-06-11] MEDS ORDERED: hydroCHLOROthiazide 25 MG TABLET PO SCH (09:00)
[2018-06-11] MEDS ORDERED: POLYETHYLENE GLYCOL 3350 17 GM PACKET PO SCH (09:00)
[2018-06-11] MEDS ORDERED: ROSUVASTATIN CALCIUM 20 MG PO SCH (09:00)
[2018-06-11] MEDS ORDERED: LEFLUNOMIDE 10 MG PO SCH (09:00)
[2018-06-11] MEDS ORDERED: NON FORMULARY MED (Telmisartan [Micardis] 80 MG) PO SCH (09:00)
[2018-06-11] MEDS ORDERED: CINACALCET HCL 30 MG PO SCH (09:00)
[2018-06-11] MEDS ORDERED: hydrALAZINE 25 MG TABLET PO SCH (09:00)
[2018-06-11] MEDS ORDERED: CHOLECALCIFEROL 1,000 UNIT TABLET PO SCH (09:00)
[2018-06-11] MEDS ORDERED: LOSARTAN 50 MG TABLET PO SCH (09:00)
[2018-06-11] MEDS ORDERED: TACROLIMUS 0.5 MG CAPSULE PO SCH ×3 (09:00→21:00)
--- NOTE | 2018-06-11 11:52 | PROVIDER PROGRESS NOTE ---
Subjective - Prog Note Date Prog Note Date: 06/11/18 Prog Note Time: 11:50 - Subjective Pt reports feeling: Improved Current Medications - Current Medications Current Medications: Active Medications Acetaminophen (Tylenol) 650 mg PO Q4HR PRN PRN Reason: Pain 1 to 4 Amlodipine Besylate (Norvasc) 10 mg PO DAILY [facility] Last Admin: 06/11/18 08:18 Dose: 10 mg Aspirin ([place] Aspirin) 81 mg PO DAILY [facility] Last Admin: 06/11/18 08:18 Dose: 81 mg Atorvastatin Calcium (Lipitor) 40 mg PO DAILY [facility] Last Admin: 06/11/18 08:19 Dose: 40 mg Cholecalciferol (Vitamin D3) 2,000 unit PO DAILY [facility] Last Admin: 06/11/18 08:19 Dose: 2,000 unit Clonidine HCl (Catapres) 0.2 mg PO TID [facility] Last Admin: 06/11/18 06:39 Dose: 0.2 mg Hydralazine HCl (Apresoline) 25 mg PO DAILY [facility] Last Admin: 06/11/18 08:15 Dose: Not Given Hydrochlorothiazide (Hydrodiuril) 25 mg PO DAILY [facility] Last Admin: 06/11/18 08:19 Dose: 25 mg Ceftriaxone Sodium 1 gm/ (Sodium Chloride) 100 mls @ 200 mls/hr IV Q24H [facility] Last Infusion: 06/11/18 00:14 Dose: Infused Sodium Chloride (Normal Saline 0.9%) 1,000 mls @ 75 mls/hr IV .[id number] [facility] Stop: 06/12/18 01:35 Last Admin: 06/10/18 22:57 Dose: 75 mls/hr Insulin Glargine (Lantus Solostar) 10 unit SUBQ DAILY [facility] Last Admin: 06/11/18 08:15 Dose: Not Given Insulin Human Regular (Novolin R) 1 - 5 unit SUBQ Q6HR [facility]; Protocol Last Admin: 06/11/18 06:40 Dose: 1 unit Levothyroxine Sodium (Synthroid) 25 mcg PO QDAC [facility] Last Admin: 06/11/18 06:39 Dose: 25 mcg Losartan Potassium (Cozaar) 100 mg PO DAILY [facility] Last Admin: 06/11/18 08:20 Dose: 100 mg Magnesium Oxide (Mag Ox) 400 mg PO DAILY [facility] Last Admin: 06/11/18 08:20 Dose: 400 mg Morphine Sulfate (Morphine (Carpuject)) 2 mg IVP Q2HR PRN PRN Reason: Pain 8 to 10 Last Admin: 06/11/18 03:52 Dose: 2 mg Non-Formulary Medication (Carvedilol [Coreg]) 50 mg PO DAILY [facility] Non-Formulary Medication (Cinacalcet Hcl [Sensipar]) 30 mg PO DAILY [facility] Ondansetron HCl (Zofran Inj) 4 mg IVP Q6HR PRN PRN Reason: Nausea / Vomiting Last Admin: 06/11/18 03:52 Dose: 4 mg Oxycodone HCl (Roxicodone) 5 mg PO Q4HR PRN PRN Reason: Pain 5 to 7 Last Admin: 06/11/18 00:30 Dose: 5 mg Oxycodone HCl (Roxicodone) 10 mg PO Q4HR PRN PRN Reason: Pain 8 to 10 Pantoprazole Sodium (Protonix) 40 mg IVP BIDAC [facility] Last Admin: 06/11/18 06:41 Dose: 40 mg Polyethylene Glycol (Miralax) 17 gm PO DAILY [facility] Last Admin: 06/11/18 08:21 Dose: Not Given Prochlorperazine Edisylate (Compazine Inj) 10 mg IVP Q6HR PRN PRN Reason: Nausea / Vomiting Promethazine HCl (Phenergan Inj) 25 mg IM Q6HR PRN PRN Reason: Nausea / Vomiting Sodium Chloride (Normal Saline Flush 0.9%) 10 ml IVP PRN PRN PRN Reason: NEEDED PER PROVIDER ORDERS Last Admin: 06/11/18 06:39 Dose: 10 ml Sodium Chloride (Normal Saline Flush 0.9%) 10 ml IVP 0100,0900,1700 [facility] Last Admin: 06/11/18 00:15 Dose: Not Given Tacrolimus (Prograf) 1 mg PO DAILY [facility] Last Admin: 06/11/18 08:20 Dose: 1 mg Tacrolimus (Prograf) 0.5 mg PO QPM [facility] Zolpidem Tartrate (Ambien) 5 mg PO QPM PRN PRN Reason: Insomnia Aspirin Chewable [[place]o Aspirin] 81 mg PO DAILY 12/03/13 Carvedilol [Coreg] 50 mg PO BID 12/03/13 Cholecalciferol (Vitamin D3) [Vitamin D] 2,000 unit PO DAILY 12/03/13 Cinacalcet HCl [Sensipar] 30 mg PO Q48H 12/03/13 Krill Oil 500 mg PO DAILY 12/03/13 Levothyroxine Sodium [Synthroid] 25 mcg PO DAILY 12/03/13 Magnesium Oxide [Magnesium] 400 mg PO DAILY 12/03/13 Omeprazole [PriLOSEC] 20 mg PO DAILY 12/03/13 Potassium Chloride 20 meq PO BID 12/03/13 Prenat Vit Comb.10/Iron/FA/Dha [Vitafol-Ob+Dha Combo Pack] 1 each PO DAILY 12/03/13 Rosuvastatin Calcium [Crestor] 20 mg PO DAILY 12/03/13 Telmisartan [Micardis] 80 mg PO DAILY 12/03/13 amLODIPine [Norvasc] 10 mg PO DAILY 12/03/13 cloNIDine HCl [Clonidine HCl] 0.2 mg PO TID 12/03/13 predniSONE [Deltasone] 5 mg PO DAILY 12/03/13 Insulin Aspart [Novolog] 7 - 12 units SUBQ AC 04/15/14 Insulin Glargine,Hum.rec.anlog [Lantus] 20 units SUBQ DAILY 04/15/14 Docusate Calcium 240 mg PO DAILY 06/11/18 Furosemide 20 mg PO DAILY 06/11/18 Tacrolimus [Prograf] 0.5 mg PO QPM 06/11/18 Tacrolimus [Prograf] 1 mg PO DAILY 06/11/18 Objective - Vital Signs/Intake & Output Reviewed Vital Signs: Yes Vital Signs: Vital Signs x48h Temp Pulse Resp BP Pulse Ox 06/11/18 11:41 36.8 C 73 18 161/65 H 99 06/11/18 08:04 37.0 C 72 18 157/67 H 99 06/11/18 06:18 36.8 C 75 20 177/72 H 98 Intake & Output: Intake & Output 06/09/18 06/09/18 06/10/18 06/11/18 00:59 23:59 23:59 23:59 Intake Total 1028 100 Output Total 275 1150 Balance 753 -1050 - Objective General Appearance: positive: No acute distress, Alert Eyes Bilateral: positive: Normal inspection, PERRL ENT: positive: ENT inspection nml, Pharynx nml, No signs of dehydration Neck: positive: Nml inspection, Thyroid nml, No JVD, Trachea midline Respiratory: positive: Chest non-tender, No respiratory distress, Breath sounds nml Cardiovascular: positive: No gallop, Systolic murmur, Decreased pulse(s) Peripheral Pulses: 1+ Radial (R), 1+ Radial (L) Abdomen: positive: Non-tender Back: positive: Nml inspection Skin: positive: No rash, Warm, Dry Extremities: positive: Non-tender, Full ROM, Nml appearance Neurologic/Psychiatric: positive: Oriented x3, CN's nml (2-12), Motor nml, Sensation nml, Mood/affect nml Reflexes: Bicep (R): 3+, Bicep (L): 3+ - Lab Results Fish Bones: 06/11/18 05:18 06/11/18 05:18 Other Labs: Lab Results x24hrs 06/11/18 06/11/18 06/11/18 Range/Units 11:31 06:22 05:18 WBC (4.8-10.8) x10^3/uL RBC (4.70-6.10) 10^6/uL Hgb (14.0-18.0) g/dL Hct (42.0-52.0) % MCV (80.0-94.0) fL MCH (27.0-31.0) pg MCHC (32.0-36.0) g/dL RDW (12.0-15.0) % Plt Count (130-450) 10^3/uL MPV (7.4-11.4) fL Neut # (Auto) (1.5-6.6) 10^3/uL Lymph # (Auto) (1.5-3.5) 10^3/uL [place] # (Auto) (0.0-1.0) 10^3/uL Eos # (Auto) (0.0-0.7) 10^3/uL Baso # (Auto) (0.0-0.1) 10^3/uL Absolute Nucleated RBC x10^3/uL Nucleated RBC % /100WBC PT (9.9-12.6) secs INR (0.8-1.2) Sodium (135-145) mmol/L Potassium (3.5-5.0) mmol/L Chloride (101-111) mmol/L Carbon Dioxide (21-32) mmol/L Anion Gap (6-13) BUN (6-20) mg/dL Creatinine (0.6-1.2) mg/dL Estimated GFR (MDRD) (>89) Glucose (70-100) mg/dL POC Whole Bld Glucose 167 H 169 H (70 - 100) mg/dL Glycated Hemoglobin (4.6-6.2) % Estim Average Glucose (70-100) Lactic Acid 0.5 (0.5-2.2) mmol/L Calcium (8.5-10.3) mg/dL Phosphorus (2.5-4.6) mg/dL Magnesium (1.7-2.8) mg/dL Total Bilirubin (0.2-1.0) mg/dL AST (10-42) IU/L ALT (10-60) IU/L Alkaline Phosphatase (42-121) IU/L Total Protein (6.7-8.2) g/dL Albumin (3.2-5.5) g/dL Globulin (2.1-4.2) g/dL Albumin/Globulin Ratio (1.0-2.2) Lipase (22-51) U/L Urine Color Urine Clarity (CLEAR) Urine pH (5.0-7.5) PH Ur Specific [place] (1.002-1.030) Urine Protein (NEGATIVE) mg/dL Urine Glucose (UA) (NEGATIVE) mg/dL Urine Ketones (NEGATIVE) mg/dL Urine Occult Blood (NEGATIVE) Urine Nitrite (NEGATIVE) Urine Bilirubin (NEGATIVE) Urine Urobilinogen (NORMAL) E.U./dL Ur Leukocyte Esterase (NEGATIVE) Urine RBC (0-5) /HPF Urine WBC (0-3) /HPF Ur Squamous Epith Cells (<= Few) Urine Crystals /LPF Amorphous Sediment /LPF Urine Bacteria (None Seen) /HPF Ur Microscopic Review Urine Culture Comments 06/11/18 06/11/18 06/11/18 Range/Units 05:18 05:18 05:18 WBC (4.8-10.8) x10^3/uL RBC (4.70-6.10) 10^6/uL Hgb (14.0-18.0) g/dL Hct (42.0-52.0) % MCV (80.0-94.0) fL MCH (27.0-31.0) pg MCHC (32.0-36.0) g/dL RDW (12.0-15.0) % Plt Count (130-450) 10^3/uL MPV (7.4-11.4) fL Neut # (Auto) (1.5-6.6) 10^3/uL Lymph # (Auto) (1.5-3.5) 10^3/uL [place] # (Auto) (0.0-1.0) 10^3/uL Eos # (Auto) (0.0-0.7) 10^3/uL Baso # (Auto) (0.0-0.1) 10^3/uL Absolute Nucleated RBC x10^3/uL Nucleated RBC % /100WBC PT 10.7 (9.9-12.6) secs INR 0.9 (0.8-1.2) Sodium 134 L (135-145) mmol/L Potassium 3.2 L (3.5-5.0) mmol/L Chloride 111 (101-111) mmol/L Carbon Dioxide 14 L (21-32) mmol/L Anion Gap 9.0 (6-13) BUN 70 H (6-20) mg/dL Creatinine 2.5 H (0.6-1.2) mg/dL Estimated GFR (MDRD) 26 L (>89) Glucose 187 H (70-100) mg/dL POC Whole Bld Glucose (70 - 100) mg/dL Glycated Hemoglobin 9.8 H (4.6-6.2) % Estim Average Glucose 235 H (70-100) Lactic Acid (0.5-2.2) mmol/L Calcium 9.1 (8.5-10.3) mg/dL Phosphorus 3.9 (2.5-4.6) mg/dL Magnesium 2.1 (1.7-2.8) mg/dL Total Bilirubin 0.7 (0.2-1.0) mg/dL AST 24 (10-42) IU/L ALT 22 (10-60) IU/L Alkaline Phosphatase 123 H (42-121) IU/L Total Protein 6.7 (6.7-8.2) g/dL Albumin 3.0 L (3.2-5.5) g/dL Globulin 3.7 (2.1-4.2) g/dL Albumin/Globulin Ratio 0.8 L (1.0-2.2) Lipase (22-51) U/L Urine Color Urine Clarity (CLEAR) Urine pH (5.0-7.5) PH Ur Specific [place] (1.002-1.030) Urine Protein (NEGATIVE) mg/dL Urine Glucose (UA) (NEGATIVE) mg/dL Urine Ketones (NEGATIVE) mg/dL Urine Occult Blood (NEGATIVE) Urine Nitrite (NEGATIVE) Urine Bilirubin (NEGATIVE) Urine Urobilinogen (NORMAL) E.U./dL Ur Leukocyte Esterase (NEGATIVE) Urine RBC (0-5) /HPF Urine WBC (0-3) /HPF Ur Squamous Epith Cells (<= Few) Urine Crystals /LPF Amorphous Sediment /LPF Urine Bacteria (None Seen) /HPF Ur Microscopic Review Urine Culture Comments 06/11/18 06/11/18 06/10/18 Range/Units 05:18 00:17 22:31 WBC 12.5 H (4.8-10.8) x10^3/uL RBC 3.77 L (4.70-6.10) 10^6/uL Hgb 11.9 L (14.0-18.0) g/dL Hct 35.1 L (42.0-52.0) % MCV 93.2 (80.0-94.0) fL MCH 31.4 H (27.0-31.0) pg MCHC 33.7 (32.0-36.0) g/dL RDW 14.0 (12.0-15.0) % Plt Count 249 (130-450) 10^3/uL MPV 7.7 (7.4-11.4) fL Neut # (Auto) 10.5 H (1.5-6.6) 10^3/uL Lymph # (Auto) 1.1 L (1.5-3.5) 10^3/uL [place] # (Auto) 0.7 (0.0-1.0) 10^3/uL Eos # (Auto) 0.0 (0.0-0.7) 10^3/uL Baso # (Auto) 0.1 (0.0-0.1) 10^3/uL Absolute Nucleated RBC 0.00 x10^3/uL Nucleated RBC % 0.0 /100WBC PT (9.9-12.6) secs INR (0.8-1.2) Sodium (135-145) mmol/L Potassium (3.5-5.0) mmol/L Chloride (101-111) mmol/L Carbon Dioxide (21-32) mmol/L Anion Gap (6-13) BUN (6-20) mg/dL Creatinine (0.6-1.2) mg/dL Estimated GFR (MDRD) (>89) Glucose (70-100) mg/dL POC Whole Bld Glucose 262 H 253 H (70 - 100) mg/dL Glycated Hemoglobin (4.6-6.2) % Estim Average Glucose (70-100) Lactic Acid (0.5-2.2) mmol/L Calcium (8.5-10.3) mg/dL Phosphorus (2.5-4.6) mg/dL Magnesium (1.7-2.8) mg/dL Total Bilirubin (0.2-1.0) mg/dL AST (10-42) IU/L ALT (10-60) IU/L Alkaline Phosphatase (42-121) IU/L Total Protein (6.7-8.2) g/dL Albumin (3.2-5.5) g/dL Globulin (2.1-4.2) g/dL Albumin/Globulin Ratio (1.0-2.2) Lipase (22-51) U/L Urine Color Urine Clarity (CLEAR) Urine pH (5.0-7.5) PH Ur Specific [place] (1.002-1.030) Urine Protein (NEGATIVE) mg/dL Urine Glucose (UA) (NEGATIVE) mg/dL Urine Ketones (NEGATIVE) mg/dL Urine Occult Blood (NEGATIVE) Urine Nitrite (NEGATIVE) Urine Bilirubin (NEGATIVE) Urine Urobilinogen (NORMAL) E.U./dL Ur Leukocyte Esterase (NEGATIVE) Urine RBC (0-5) /HPF Urine WBC (0-3) /HPF Ur Squamous Epith Cells (<= Few) Urine Crystals /LPF Amorphous Sediment /LPF Urine Bacteria (None Seen) /HPF Ur Microscopic Review Urine Culture Comments 06/10/18 06/10/18 06/10/18 Range/Units 19:17 19:08 19:08 WBC 12.4 H (4.8-10.8) x10^3/uL RBC 3.97 L (4.70-6.10) 10^6/uL Hgb 12.5 L (14.0-18.0) g/dL Hct 37.0 L (42.0-52.0) % MCV 93.2 (80.0-94.0) fL MCH 31.6 H (27.0-31.0) pg MCHC 33.9 (32.0-36.0) g/dL RDW 14.6 (12.0-15.0) % Plt Count 295 (130-450) 10^3/uL MPV 8.0 (7.4-11.4) fL Neut # (Auto) 9.8 H (1.5-6.6) 10^3/uL Lymph # (Auto) 1.6 (1.5-3.5) 10^3/uL [place] # (Auto) 0.7 (0.0-1.0) 10^3/uL Eos # (Auto) 0.2 (0.0-0.7) 10^3/uL Baso # (Auto) 0.1 (0.0-0.1) 10^3/uL Absolute Nucleated RBC 0.00 x10^3/uL Nucleated RBC % 0.0 /100WBC PT (9.9-12.6) secs INR (0.8-1.2) Sodium 130 L (135-145) mmol/L Potassium 3.8 (3.5-5.0) mmol/L Chloride 105 (101-111) mmol/L Carbon Dioxide 13 L (21-32) mmol/L Anion Gap 12.0 (6-13) BUN 75 H (6-20) mg/dL Creatinine 3.1 H (0.6-1.2) mg/dL Estimated GFR (MDRD) 20 L (>89) Glucose 321 H (70-100) mg/dL POC Whole Bld Glucose (70 - 100) mg/dL Glycated Hemoglobin (4.6-6.2) % Estim Average Glucose (70-100) Lactic Acid (0.5-2.2) mmol/L Calcium 9.7 (8.5-10.3) mg/dL Phosphorus (2.5-4.6) mg/dL Magnesium (1.7-2.8) mg/dL Total Bilirubin 0.6 (0.2-1.0) mg/dL AST 16 (10-42) IU/L ALT 23 (10-60) IU/L Alkaline Phosphatase 138 H (42-121) IU/L Total Protein 7.7 (6.7-8.2) g/dL Albumin 3.6 (3.2-5.5) g/dL Globulin 4.1 (2.1-4.2) g/dL Albumin/Globulin Ratio 0.9 L (1.0-2.2) Lipase 71 H (22-51) U/L Urine Color YELLOW Urine Clarity TURBID (CLEAR) Urine pH 8.0 H (5.0-7.5) PH Ur Specific [place] 1.020 (1.002-1.030) Urine Protein 100 H (NEGATIVE) mg/dL Urine Glucose (UA) NEGATIVE (NEGATIVE) mg/dL Urine Ketones NEGATIVE (NEGATIVE) mg/dL Urine Occult Blood NEGATIVE (NEGATIVE) Urine Nitrite NEGATIVE (NEGATIVE) Urine Bilirubin NEGATIVE (NEGATIVE) Urine Urobilinogen 0.2 (NORMAL) (NORMAL) E.U./dL Ur Leukocyte Esterase NEGATIVE (NEGATIVE) Urine RBC 0-5 (0-5) /HPF Urine WBC 0-3 (0-3) /HPF Ur Squamous Epith Cells NONE SEEN (<= Few) Urine Crystals 11-25 Triple Phos /LPF Amorphous Sediment Few /LPF Urine Bacteria Many H (None Seen) /HPF Ur Microscopic Review INDICATED Urine Culture Comments INDICATED ABX Reporting Has patient been on IV antibiotics over the past 48 hours?: Yes Assessment/Plan - Problem List (1) Partial small bowel obstruction Impression: The patient has an extensive PMhx including a (2) UTI (urinary tract infection) Qualifiers: Urinary tract infection type: catheter-associated UTI Indwelling urinary catheter type: cystostomy catheter Encounter type: initial encounter Qualified Code(s): T83.510A - Infection and inflammatory reaction due to cystostomy catheter, initial encounter; N39.0 - Urinary tract infection, site not specified (3) Diabetes mellitus type 2 with complications, uncontrolled Impression: The patient is prescribed Novolog at home that he takes as a sliding scale with meals. This morning, he was found to have a fasting BS on lab of 187, and an elevated hemoglobin A1C of 9.8%. He refused his Lantus as he states that he has had bad experience with this at home several years ago when he nearly passed out from becoming hypoglycemic. His lunch time meal was resumed at just clear liquid, and for dinner, he will be advanced to full liquid as he has not had any worsening of his abdominal pain. Plan: Change insulin SS, to with meals, and offer Lantus daily.
[2018-06-11] MEDS: SODIUM CHLORIDE 0.9% 1,000 ML IV SCH (12:21)
--- NOTE | 2018-06-11 13:14 | XRAY Report ---
Reason: f/u SBO Procedure Date: 06/11/2018 Accession Number: [id number] / [id number] Procedure: XR - Abdomen 2 View X-Ray CPT Code: 46573 FULL RESULT: EXAM: ABDOMEN RADIOGRAPHY EXAM DATE: 06/11/2018 12:20 PM. CLINICAL HISTORY: Follow-up small bowel obstruction. COMPARISON: 10/15/2010 9:57 AM ABDOMEN/PELVIS W/O 06/10/2018 8:34 PM. TECHNIQUE: 2 views. FINDINGS: Lung Bases: Unremarkable. Bowel Gas Pattern: There are dilated small bowel loops measuring up to 4.1 cm in caliber with air-fluid levels and there is a paucity of large bowel gas, obstructive bowel gas pattern. Free Air: None. Other: None. IMPRESSION: Small bowel obstruction. RADIA The above findings of persistent small bowel obstruction with increasing dilation were discussed with Fabi Uriatre by Dr. Earnest Cuadra at 13:12 hrs on 06/11/18.
[2018-06-11] MEDS ORDERED: CARVEDILOL 50 MG PO SCH (14:30)
--- NOTE | 2018-06-11 16:31 | CONSULTATION NOTE ---
Referring Provider Name of Referring Provider:: Dr. Gomez Consult Date: 06/11/18 Chief Complaint - Chief Complaint Chief Complaint: abd pain History of Present Illness - Admitted From Admitted From:: ER - History Obtained From Records Reviewed: yes History obtained from: pt, records Exam Limitations: none - History of Present Illness HPI Comment/Other: 68 yo male with sudden onset of severe generalized abdominal pain yesterday morning around 0800 without associated N/V, fever,chills and which did not resolve by evening prompting him to be evaluated in the [facility] ER and subsequently admitted. Evaluation in the ER included a benign abdomen and CT which showed evidence of high grade partial SBO with a transition zone noted in the mid small bowel. He reports no bm since onset of sx. He reports a similar episode 10 yrs ago for which he was seen in the ER at and which resolved shortly after arrival. He reports that now he is pain free, passing flatus and is hungry. He has a hx of multiple prior surgical procedures including total prostatectomy/cystectomy with urinary diversion and renal transplant. He loves to eat raw vegetables, nuts, and seeds. No hx of melena/BRBPR; He has a PH colon polyps. His last colon was in 2013 and reportedly favorable. History - Past Medical History Cardiovascular: reports: Hypertension, High cholesterol Respiratory: reports: None Endocrine/Autoimmune: reports: Type 2 diabetes, HyPOthyroidism GI: reports: GERD : reports: Renal insuffiency (Chronic kidney disease stage IV status post renal transplant), Other (Renal transplant in 2009 with ongoing chronic kidney disease stage IV, Bladder cancer status post bladder resection, prostatectomy and lymph node resection in 2017.) Psych: reports: None Derm: reports: None - Past Surgical History General: reports: Cholecystectomy, Appendectomy, Colonoscopy (2013: neg) /[employer]: reports: Other (kidney transplant, Bladder resection, prostatectomy, lymph node resection) - Family & Social History Family History: Mother: (Mother and father both at young age of unknown causes.), Father: , Brother: , Other family: Hypertension (Daughter) Family History Comment/Other: The patient's father at the age of 55 and his 2 brothers in their 50s. The patient does not know the cause of their . He states that his mother when he was 8 years old and he does not know the cause of her either. He does state that his daughter has hypertension. Neg for CRC Living arrangement: At home Living Situation: With spouse/s.o. Social History Notes: The patient lives in [place] with his . They have been for 47 years. They have 3 children together. The patient is originally from the [facility] and moved to the [facility] in 1967. He is retired [employer]. He states that he used to smoke 1 or 2 cigarettes a day for about 5 years but quit in 1977. He states that he used to drink socially but also quit drinking in 1977. He denies any illicit drug use. - POLST Patient has POLST: No POLST Status: Full Code Meds/Allgy - Home Medications Home Medications: Ambulatory Orders Medication Instructions Recorded Confirmed Aspirin Chewable [St Americo 81 mg PO DAILY 12/03/13 06/11/18 Aspirin] Carvedilol [Coreg] 50 mg PO BID 12/03/13 06/11/18 Cholecalciferol (Vitamin D3) 2,000 unit PO DAILY 12/03/13 06/11/18 [Vitamin D] Cinacalcet HCl [Sensipar] 30 mg PO Q48H 12/03/13 06/11/18 Krill Oil 500 mg PO DAILY 12/03/13 06/11/18 Levothyroxine Sodium [Synthroid] 25 mcg PO DAILY 12/03/13 06/11/18 Magnesium Oxide [Magnesium] 400 mg PO DAILY 12/03/13 06/11/18 Omeprazole [PriLOSEC] 20 mg PO DAILY 12/03/13 06/11/18 Potassium Chloride 20 meq PO BID 12/03/13 06/11/18 Prenat Vit Comb.10/Iron/FA/Dha 1 each PO DAILY 12/03/13 06/11/18 [Vitafol-Ob+Dha Combo Pack] Rosuvastatin Calcium [Crestor] 20 mg PO DAILY 12/03/13 06/11/18 Telmisartan [Micardis] 80 mg PO DAILY 12/03/13 06/11/18 amLODIPine [Norvasc] 10 mg PO DAILY 12/03/13 06/11/18 cloNIDine HCl [Clonidine HCl] 0.2 mg PO TID 12/03/13 06/11/18 predniSONE [Deltasone] 5 mg PO DAILY 12/03/13 06/11/18 Insulin Aspart [Novolog] 7 - 12 units SUBQ AC 04/15/14 06/11/18 Insulin Glargine,Hum.rec.anlog 20 units SUBQ DAILY 04/15/14 06/11/18 [Lantus] Docusate Calcium 240 mg PO DAILY 06/11/18 06/11/18 Furosemide 20 mg PO DAILY 06/11/18 06/11/18 Tacrolimus [Prograf] 0.5 mg PO QPM 06/11/18 06/11/18 Tacrolimus [Prograf] 1 mg PO DAILY 06/11/18 06/11/18 - Allergies Allergies/Adverse Reactions: Allergies Allergy/AdvReac Type Severity Reaction Status Date / Time No Known Drug Allergies Allergy Verified 04/03/18 16:25 Review of Systems - Constitutional Constitutional: reports: Poor appetite. denies: Fever, Chills, Weight gain, [place] ght loss - Gastrointestinal Gastrointestinal: reports: Abdominal pain, Change in bowel habits, Reflux/heartburn. denies: Abdominal distention, Rectal bleeding, Black stools, Bloody stools, Nausea, Vomiting, Bile emesis, [place] blood emesis, Coffee grounds emesis - Hematologic/Lymphatic Hematologic/Lymphatic: denies: Bleeding tendencies - All Other Systems All Other Systems: reports: Reviewed and negative Exam - Vital Signs Reviewed Vital Signs: Yes Vital Signs: Vital Signs x48h Temp Pulse Resp BP Pulse Ox 06/11/18 15:41 36.7 C 57 L 18 117/50 L 99 06/11/18 13:19 62 112/46 L 06/11/18 11:41 36.8 C 73 18 161/65 H 99 - Physical Exam General Appearance: positive: No acute distress, Alert Eyes Bilateral: positive: Normal inspection, Conjunctivae nml, No scleral ict erus ENT: positive: ENT inspection nml, Pharynx nml Neck: positive: Nml inspection, No JVD. negative: Lymphadenopathy (R), Lymphadenopathy (L) Respiratory: positive: Chest non-tender, No respiratory distress, Breath sounds nml. negative: Wheezes, Rales, Rhonchi Cardiovascular: positive: Regular rate & rhythm, No murmur, No gallop Abdomen: positive: Non-tender, No organomegaly, Nml bowel sounds, No distention, Other (urostomy in the RLQ, multiple surgical scars). negative: Hepatomegaly, Splenomegaly, Mass Extremities: positive: Non-tender, Nml appearance, No pedal edema Neurologic/Psychiatric: positive: Oriented x3 Conclusion/Plan - Diagnosis Diagnosis: Abd pain, resolving, likely due to partial SBO; no evidence of acute abdomen or complete obstruction at this time. - Plan Plan: advance diet as tolerated to low residue; avoid raw vegetables and nuts in the future. will follow. - Lab Results Lab results reviewed: Yes Fish Bones: 06/11/18 05:18 06/11/18 05:18 - Diagnostic Imaging Results Diagnostic Imaging Results: positive: Final report reviewed, Read independently Diagnostic Imaging Results Comments: SEE HPI
--- NOTE | 2018-06-11 17:12 | Discharge Plan ---
Discharge Plan Disposition: 01 Home, Self Care Condition: Good Prescriptions: Insulin Admin. Supplies [Inpen (For Novolog)] 1 each SQ QID #120 insuln.pen Wheat Dextrin [Benefiber] 1 each PO DAILY #30 packet Diet: Soft (low residual) Activity Restrictions: Activity as Tolerated Shower Restrictions: No Driving Restrictions: No Weight Bearing: Full Weight Additional Instructions or Follow Up instructions: You came to the ED for abdominal pain and were found to have a small bowel obstruction. With bowel rest, and IV fluids this resolved. Your diet was advanced and you continued to be pain free and you will likely keep improving at home. You were seen by general surgery, Dr. Allan Mistry who recommends; advance diet as tolerated to low residue; avoid raw vegetables and nuts in the future. He does not require any follow up appointments. A urine sample was obtained and showed e. coli, which may have been a contaminant or a colonized pathogen in your urostomy appliance. You were treated given your symptoms, but it is not recommended for this to continue. Your kidney function showed stage 4 kidney disease, which has been stable for the past few labs. Your hemoglobin A1C is elevated at 9.8%, so you will need to follow up with your primary care provider (PCP) on this. I know you have been opposed to Lantus in the past, but this may be beneficial at a low dose. Please see your PCP within one week and other specialists as scheduled. Follow-Up Care: [facility] - Diabetes Ed No Smoking: If you smoke, Please STOP! Call for help. Follow-up with: Alen March DO [Primary Care Provider] -
--- NOTE | 2018-06-11 17:18 | DISCHARGE SUMMARY ---
"Discharge Summary Admit Date: 06/10/18 Discharge Date: 06/11/18 Discharging Provider: MAURY Roca Primary Care Provider: Alen March Code Status: Attempt Resuscitation Condition at Discharge: Good Discharge Disposition: 01 Home, Self Care - DIAGNOSES Admission Diagnoses: Partial small bowel obstruction (K56.600) Acute on chronic renal failure (N17.9) UTI (urinary tract infection) (N39.0) History of renal transplant (Z94.0) Hypertension (I10) Type 2 diabetes mellitus with hyperglycemia, with long-term current use of insulin (E11.65) Hyponatremia (E87.1) Hypothyroidism (E03.9) Hyperlipidemia (E78.5) Discharge Diagnoses with Status of Each Condition: Partial small bowel obstruction (K56.600) resolved clinically, tolerating soft diet, all abdominal pain was resolved. Acute on chronic renal failure (N17.9) kidney function improved, stable. Diverticulosis (K57.90) new finding on abdominal imaging, stable and recommended daily benefiber/metamucil indefinitely. UTI (urinary tract infection) (N39.0) the patient showed no signs of acute infection, so this was ruled out. History of renal transplant (Z94.0) chronic, stable. Hypertension (I10) chronic, stable Type 2 diabetes mellitus with hyperglycemia, with long-term current use of insulin (E11.65) chronic, will need follow up as his HgA1C was elevated at 9.8%, but he has had bad experience with Lantus, so he was not willing to make changes at this time. Hyponatremia (E87.1) resolved. Hypothyroidism (E03.9) chronic, stable Hyperlipidemia (E78.5) chronic, stable - HPI History of Present Illness: HPI per Dr. Agustin: Patient is a very pleasant 68-year-old [place] gentleman with a unfortunate co mplicated past medical history which includes renal transplant in 2008 with chronic kidney disease of his transplanted kidney on immunosuppressants, bladder cancer in 2017 status post bladder, prostate and lymph node resection status post urostomy, insulin-dependent diabetes mellitus, hypertension, hyperlipidemia and hypothyroidism who presented to the emergency department with a chief complaint of abdominal pain. The patient states that he was in his normal state of health until 8 AM this morning. He states that that time he began to experience abdominal pain. He states that it came on suddenly and was located just above his umbilicus. He states that it radiated up and down his mid abdo men. He states that the pain was severe at about 9 out of 10. He states that it was constant but the intensity would go up and down throughout the day varying between a 7 and a 10. He states that the pain was sharp. He states that with the pain he had a decreased appetite and did not eat anything all day. He states that he did try to drink fluid with hot tea, hot water and coffee. He states that he was not nauseated and did not vomit. He denies any diarrhea. He states his last bowel movement was last night but he feels as though he has passed gas today. He denies any abdominal distention. He does admit to having similar symptoms once before after his renal transplant and at that time he states he drove himself to the hospital in [place] and symptoms resolved without him needing to be admitted. He states that when symptoms did not resolve today he finally came into the emergency department. The patient states that the pain did not improve until he received morphine in the emergency department. He states with the morphine his pain is much better. He states that he did eat a small apple early this morning before the pain started. The patient denies any fevers or chills. He denies any flank pain or blood in his urostomy bag. Patient denied any headaches, blurred vision, runny nose, sore throat, nasal congestion, difficulty swallowing, chest pain, cough, shortness of air, orthopnea, PND, increased lower extremity swelling, joint swelling, joint pain, muscle aches, back pain, neck stiffness, recent unintentional weight loss, dizziness, lightheadedness, skin changes, rash, night sweats or any focal neurologic deficits. On presentation to the emergency department the patient was afebrile but was in significant distress due to his abdominal pain and was hypertensive with a blood pressure of 198/82. The patient's heart rate and oxygen saturation were within normal limits. The patient underwent routine lab work which revealed an elevated white blood cell count of 12.4, chronic anemia with a hemoglobin of 12.5, hyponatremia with a sodium of 130, and elevated creatinine of 3.1 up from a baseline of 2.3 about 2 months ago and hyperglycemia with a blood glucose of 321. The patient did undergo urine analysis of his urine in the urostomy bag which revealed many bacteria with 0-3 WBCs. The patient states that he was treated for a urinary tract infection just over a month ago. The patient finally underwent imaging with an abdominal CT which revealed findings suspicious for a partial small bowel obstruction with a focal transition zone identified in the central abdomen. The emergency room physician spoke with the surgeon psychologist industrial organizational Dr. Mistry who advised that the patient be admitted to the hospitalist team for medical management of partial small bowel obstruction. The patient was placed in observation for partial small bowel obstruction. - CONSULTS | PROCEDURES Consultations: General Surgery, Dr. Allan Mistry - HOSPITAL COURSE Hospital Course: The patient was admitted with acute onset upper abdominal pain and was found to have a SBO that resolved in less than 24 hours with bowel rest, IV fluids and ambulation. The patient resumed eating, and had a resolution of his abdominal pain. 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 Attempts were made to start a low dose of Lantus, but the patient declined as he felt that he has previously had bad luck with this medication. I recommended prompt follow up with PCP to address his elevated HgA1C. He was found to have diverticulosis, and was instructed to take benefiber/metamucil daily indefinitely. He and his were very anxious to return home, and left in the evening in stable medical condition. He should see his PCP within one week. - ALLERGIES Allergies/Adverse Reactions: Allergies Allergy/AdvReac Type Severity Reaction Status Date / Time No Known Drug Allergies Allergy Verified 04/03/18 16:25 - MEDICATIONS Home Medications: Ambulatory Orders Medication Instructions Recorded Confirmed Aspirin Chewable [St Americo 81 mg PO DAILY 12/03/13 06/11/18 Aspirin] Carvedilol [Coreg] 50 mg PO BID 12/03/13 06/11/18 Cholecalciferol (Vitamin D3) 2,000 unit PO DAILY 12/03/13 06/11/18 [Vitamin D3] Cinacalcet HCl [Sensipar] 30 mg PO Q48H 12/03/13 06/11/18 Krill Oil 500 mg PO DAILY 12/03/13 06/11/18 Levothyroxine Sodium [Synthroid] 25 mcg PO DAILY 12/03/13 06/11/18 Magnesium Oxide [Magnesium] 400 mg PO DAILY 12/03/13 06/11/18 Omeprazole [PriLOSEC] 20 mg PO DAILY 12/03/13 06/11/18 Potassium Chloride 20 meq PO BID 12/03/13 06/11/18 Prenat Vit Comb.10/Iron/FA/Dha 1 each PO DAILY 12/03/13 06/11/18 [Vitafol-Ob+Dha Combo Pack] Rosuvastatin Calcium [Crestor] 20 mg PO DAILY 12/03/13 06/11/18 Telmisartan [Micardis] 80 mg PO DAILY 12/03/13 06/11/18 amLODIPine [Norvasc] 10 mg PO DAILY 12/03/13 06/11/18 cloNIDine HCl [Clonidine HCl] 0.2 mg PO TID 12/03/13 06/11/18 predniSONE [Deltasone] 5 mg PO DAILY 12/03/13 06/11/18 Insulin Aspart [Novolog] 7 - 12 units SUBQ AC 04/15/14 06/11/18 Insulin Glargine,Hum.rec.anlog 20 units SUBQ DAILY 04/15/14 06/11/18 [Lantus] Docusate Calcium 240 mg PO DAILY 06/11/18 06/11/18 Furosemide 20 mg PO DAILY 06/11/18 06/11/18 Insulin Admin. Supplies [Inpen 1 each SQ QID #120 insuln.pen 06/11/18 (For Novolog)] Tacrolimus [Prograf] 0.5 mg PO QPM 06/11/18 06/11/18 Tacrolimus [Prograf] 1 mg PO DAILY 06/11/18 06/11/18 Wheat Dextrin [Benefiber] 1 each PO DAILY #30 packet 06/11/18 - PHYSICAL EXAM AT DISCHARGE General Appearance: positive: No acute distress, Alert Eyes Bilateral: positive: Normal inspection, PERRL ENT: positive: ENT inspection nml, Pharynx nml, No signs of dehydration Neck: positive: Thyroid nml, No JVD, Trachea midline Respiratory: positive: Chest non-tender, No respiratory distress, Breath sounds nml Cardiovascular: positive: Regular rate & rhythm, No gallop, Systolic murmur, Decreased pulse(s) Peripheral Pulses: positive: 1+ Abdomen: positive: Non-tender, Nml bowel sounds, Other (rounded, soft) Back: positive: Nml inspection Skin: positive: No rash, Warm, Dry Extremities: positive: Non-tender, Full ROM, Nml appearance, No pedal edema Neurologic/Psychiatric: positive: Oriented x3, CN's nml (2-12), Motor nml, Sensation nml, Mood/affect nml Reflexes: Bicep (R): 3+, Bicep (L): 3+ - LABS Result Diagrams: 06/11/18 05:18 06/11/18 17:56 - DIAGNOSTIC IMAGING Diagnostic Imaging Results: Final report reviewed Diagnostic Imaging Results Comments: EXAM: CT ABDOMEN AND PELVIS EXAM DATE: 06/10/2018 08:39 PM. IMPRESSION: 1. Findings suspicious for a partial small bowel obstruction with a focal transition zone identified in the central abdomen, coronal image 22. 2. Left lower quadrant renal transplant without hydronephrosis or perinephric fluid collection. 3. Colonic diverticulosis without acute diverticulitis. EXAM: ABDOMEN RADIOGRAPHY EXAM DATE: 06/11/2018 12:20 PM. IMPRESSION: Small bowel obstruction. - SEPSIS Current Stage of Sepsis: Resolved - FOLLOW UP Follow Up: Disposition: Home, Self Care Condition: Good Prescriptions: Insulin Admin. Supplies [Inpen (For Novolog)] 1 each SQ QID #120 insuln.pen Wheat Dextrin [Benefiber] 1 each PO DAILY #30 packet Diet: Soft (low residual) Activity Restrictions: Activity as Tolerated Additional Instructions or Follow Up instructions: You came to the ED for abdominal pain and were found to have a small bowel obstruction. With bowel rest, and IV fluids this resolved. Your diet was advanced and you continued to be pain free and you will likely keep improving at home. You were seen by general surgery, Dr. Allan Mistry who recommends; advance diet as tolerated to low residue; avoid raw vegetables and nuts in the future. He does not require any follow up appointments. A urine sample was obtained and showed e. coli, which may have been a contaminant or a colonized pathogen in your urostomy appliance. You were treated given your symptoms, but it is not recommended for this to continue. Your kidney function showed stage 4 kidney disease, which has been stable for the past few labs. Your hemoglobin A1C is elevated at 9.8%, so you will need to follow up with your primary care provider (PCP) on this. I know you have been opposed to Lantus in the past, but this may be beneficial at a low dose. Please see your PCP within one week and other specialists as scheduled. - TIME SPENT Time Spent in Discharge (Minutes): 55"
[2018-06-11 18:23] VITALS: BP 115/50
[2018-06-11 18:27] LABS: CALCIUM 8.3 mg/dL (8.5-10.3); CREATININE 2.6 mg/dL (0.6-1.2)
[2018-06-12] MEDS ORDERED: amLODIPine 5 MG TABLET PO SCH (09:00)
[2018-06-12] MEDS ORDERED: INSULIN GLARGINE 300 UNIT/3 ML PEN SUBQ SCH (09:00)
== END 2018-06-11 18:59 | disposition home or self-care (01) ==
LOC: ED 18:33 → MS2 21:29
PROVIDERS: ADMIT Internal Medicine; ATTEND Nurse Practitioner
DX: K56.600 Partial intestinal obstruction, unspecified as to cause (principal); N17.9 Acute kidney failure, unspecified; E11.22 Type 2 diabetes mellitus with diabetic chronic kidney disease; E11.65 Type 2 diabetes mellitus with hyperglycemia; I12.9 Hypertensive chronic kidney disease with stage 1 through stage 4 chronic kidney disease, or unspecified chronic kidney disease; N18.4 Chronic kidney disease, stage 4 (severe); Z79.4 Long term (current) use of insulin; Z94.0 Kidney transplant status; K57.30 Diverticulosis of large intestine without perforation or abscess without bleeding; E87.1 Hypo-osmolality and hyponatremia; E86.0 Dehydration; E87.2 Acidosis; E03.9 Hypothyroidism, unspecified; E78.5 Hyperlipidemia, unspecified; K21.9 Gastro-esophageal reflux disease without esophagitis; Z85.51 Personal history of malignant neoplasm of bladder; Z93.6 Other artificial openings of urinary tract status; Z90.79 Acquired absence of other genital organ(s); Z90.49 Acquired absence of other specified parts of digestive tract
CPT/HCPCS: 36415; 74019; 74176; 80048; 80053; 81001; 83036; 83605; 83690; 83735; 84100; 85025; 85610; 87086; 87181; 93005; 96361; 96365; 96366; 96375; 96376; 99283; 99284; A9270; G0378; J1815; 81003; 96374

== ENCOUNTER 2018-07-08 08:10 | Outpatient (CLI) | payer MEDICARE, OTHER ==
[2018-07-08 08:49] LABS: BASOPHILS # (AUTO) 0.1 10^3/uL (0.0-0.1); BASOPHILS % (AUTO) 0.9 %; EOSINOPHILS # (AUTO) 0.2 10^3/uL (0.0-0.7); EOSINOPHILS % (AUTO) 2.5 %; HGB - HEMOGLOBIN 11.6 g/dL (14.0-18.0); LYMPHOCYTES # (AUTO) 1.7 10^3/uL (1.5-3.5); LYMPHOCYTES % (AUTO) 23.8 %; MEAN CORPUSCULAR HEMOGLOBIN 31.1 pg (27.0-31.0); MEAN CORPUSCULAR HGB CONC 33.4 g/dL (32.0-36.0); MEAN CORPUSCULAR VOLUME 93.1 fL (80.0-94.0); MEAN PLATELET VOLUME 7.8 fL (7.4-11.4); MONOCYTES # (AUTO) 0.7 10^3/uL (0.0-1.0); MONOCYTES % (AUTO) 9.1 %; NEUTROPHILS # (AUTO) 4.6 10^3/uL (1.5-6.6); NEUTROPHILS % (AUTO) 63.7 %; PLT - PLATELET COUNT 242 10^3/uL (130-450); RED BLOOD COUNT 3.72 10^6/uL (4.70-6.10); RED CELL DISTRIBUTION WIDTH 15.2 % (12.0-15.0); WHITE BLOOD COUNT 7.3 x10^3/uL (4.8-10.8)
[2018-07-08 08:57] LABS: ALBUMIN 3.2 g/dL (3.2-5.5); ALBUMIN/GLOBULIN RATIO 0.9 (1.0-2.2); BILIRUBIN,TOTAL 0.6 mg/dL (0.2-1.0); CREATININE 2.5 mg/dL (0.6-1.2); MAGNESIUM 1.9 mg/dL (1.7-2.8); PHOSPHORUS 3.8 mg/dL (2.5-4.6); TOTAL PROTEIN 6.9 g/dL (6.7-8.2)
[2018-07-08 09:10] LABS: BILIRUBIN,URINE NEGATIVE (NEGATIVE); GLUCOSE, URINE (UA) NEGATIVE (NEGATIVE); KETONES,URINE (UA) NEGATIVE (NEGATIVE); LEUKOCYTE ESTERASE, URINE NEGATIVE (NEGATIVE); NITRITE,URINE NEGATIVE (NEGATIVE); OCCULT BLOOD,URINE TRACE-INTA (NEGATIVE); PH,URINE >=9.0 PH (5.0-7.5); PROTEIN,URINE 100 mg/dL (NEGATIVE); UROBILINOGEN,URINE 0.2 (NORMAL) E.U./dL (NORMAL)
[2018-07-08 10:23] LABS: AMORPHOUS SEDIMENT,UR Few /LPF; BACTERIA,URINE Few /HPF (None Seen); CLARITY,URINE CLOUDY (CLEAR); CRYSTALS,URINE 3-5 Triple Phosphate /LPF; RBC,URINE 0-5 /HPF (0-5); SQUAMOUS EPITHELIAL CELL,UR RARE Squamous (<= Few)
== END 2018-07-08 08:11 | disposition home or self-care (01) ==
LOC: LAB 08:10
PROVIDERS: ATTEND Specialist
DX: Z94.0 Kidney transplant status (principal); Z41.8 Encounter for other procedures for purposes other than remedying health state; D63.1 Anemia in chronic kidney disease
CPT/HCPCS: 36415; 80053; 80197; 81001; 83735; 83970; 84100; 85025; 87086

== ENCOUNTER 2018-11-12 08:09 | Outpatient (CLI) | payer MEDICARE, OTHER ==
[2018-11-12 08:38] LABS: BASOPHILS % (AUTO) 0.7 %; EOSINOPHILS # (AUTO) 0.1 10^3/uL (0.0-0.7); EOSINOPHILS % (AUTO) 1.4 %; HGB - HEMOGLOBIN 11.2 g/dL (14.0-18.0); LYMPHOCYTES # (AUTO) 1.4 10^3/uL (1.5-3.5); LYMPHOCYTES % (AUTO) 18.7 %; MEAN CORPUSCULAR HEMOGLOBIN 30.2 pg (27.0-31.0); MEAN CORPUSCULAR HGB CONC 32.4 g/dL (32.0-36.0); MEAN CORPUSCULAR VOLUME 93.4 fL (80.0-94.0); MONOCYTES # (AUTO) 0.6 10^3/uL (0.0-1.0); MONOCYTES % (AUTO) 8.2 %; NEUTROPHILS # (AUTO) 5.2 10^3/uL (1.5-6.6); PLT - PLATELET COUNT 289 10^3/uL (130-450); RED CELL DISTRIBUTION WIDTH 15.2 % (12.0-15.0); WHITE BLOOD COUNT 7.3 x10^3/uL (4.8-10.8)
[2018-11-12 09:03] LABS: ALBUMIN 2.8 g/dL (3.2-5.5); ALBUMIN/GLOBULIN RATIO 0.7 (1.0-2.2); BILIRUBIN,TOTAL 0.7 mg/dL (0.2-1.0); CREATININE 3.7 mg/dL (0.6-1.2); MAGNESIUM 1.8 mg/dL (1.7-2.8); PHOSPHORUS 4.4 mg/dL (2.5-4.6); TOTAL PROTEIN 6.7 g/dL (6.7-8.2)
[2018-11-12 09:06] LABS: BILIRUBIN,URINE NEGATIVE (NEGATIVE); GLUCOSE, URINE (UA) NEGATIVE (NEGATIVE); KETONES,URINE (UA) NEGATIVE (NEGATIVE); LEUKOCYTE ESTERASE, URINE NEGATIVE (NEGATIVE); NITRITE,URINE NEGATIVE (NEGATIVE); OCCULT BLOOD,URINE TRACE-INTA (NEGATIVE); PH,URINE 8.5 PH (5.0-7.5); PROTEIN,URINE >=300 mg/dL (NEGATIVE); UROBILINOGEN,URINE 0.2 (NORMAL) E.U./dL (NORMAL)
[2018-11-12 09:12] LABS: CLARITY,URINE HAZY (CLEAR)
[2018-11-12 09:23] LABS: AMORPHOUS SEDIMENT,UR Few /LPF; BACTERIA,URINE Few /HPF (None Seen); RBC,URINE 0-5 /HPF (0-5); SQUAMOUS EPITHELIAL CELL,UR RARE Squamous (<= Few)
== END 2018-11-12 08:10 | disposition home or self-care (01) ==
LOC: LAB 08:09
PROVIDERS: ATTEND Specialist
DX: D63.1 Anemia in chronic kidney disease (principal); Z94.0 Kidney transplant status; Z41.8 Encounter for other procedures for purposes other than remedying health state
CPT/HCPCS: 36415; 80053; 80197; 81001; 83735; 83970; 84100; 85025; 87086

== ENCOUNTER 2019-01-07 07:47 | Outpatient (CLI) | payer MEDICARE, OTHER ==
[2019-01-07 08:41] LABS: BASOPHILS # (AUTO) 0.1 10^3/uL (0.0-0.1); BASOPHILS % (AUTO) 0.7 %; EOSINOPHILS # (AUTO) 0.1 10^3/uL (0.0-0.7); EOSINOPHILS % (AUTO) 0.9 %; HGB - HEMOGLOBIN 10.4 g/dL (14.0-18.0); LYMPHOCYTES # (AUTO) 1.3 10^3/uL (1.5-3.5); LYMPHOCYTES % (AUTO) 15.2 %; MEAN CORPUSCULAR HEMOGLOBIN 30.8 pg (27.0-31.0); MEAN CORPUSCULAR HGB CONC 32.5 g/dL (32.0-36.0); MEAN CORPUSCULAR VOLUME 94.8 fL (80.0-94.0); MEAN PLATELET VOLUME 7.8 fL (7.4-11.4); MONOCYTES # (AUTO) 0.5 10^3/uL (0.0-1.0); MONOCYTES % (AUTO) 6.3 %; NEUTROPHILS # (AUTO) 6.7 10^3/uL (1.5-6.6); NEUTROPHILS % (AUTO) 76.9 %; PLT - PLATELET COUNT 288 10^3/uL (130-450); RED BLOOD COUNT 3.37 10^6/uL (4.70-6.10); RED CELL DISTRIBUTION WIDTH 15.1 % (12.0-15.0); WHITE BLOOD COUNT 8.7 x10^3/uL (4.8-10.8)
[2019-01-07 09:06] LABS: ALBUMIN/GLOBULIN RATIO 0.8 (1.0-2.2); BILIRUBIN,TOTAL 0.7 mg/dL (0.2-1.0); CALCIUM 9.1 mg/dL (8.5-10.3); CREATININE 4.2 mg/dL (0.6-1.2); MAGNESIUM 1.9 mg/dL (1.7-2.8); PHOSPHORUS 4.6 mg/dL (2.5-4.6); TOTAL PROTEIN 6.9 g/dL (6.7-8.2)
[2019-01-07 09:47] LABS: CREATININE,URINE 44.5 mg/dL
== END 2019-01-07 07:48 | disposition home or self-care (01) ==
LOC: LAB 07:47
PROVIDERS: ATTEND Specialist
DX: I10 Essential (primary) hypertension (principal); T86.12 Kidney transplant failure; Z41.8 Encounter for other procedures for purposes other than remedying health state
CPT/HCPCS: 36415; 80053; 80197; 82570; 83735; 83970; 84100; 84156; 85025

== ENCOUNTER 2019-01-15 08:19 | Outpatient (CLI) | payer MEDICARE, OTHER ==
--- NOTE | 2019-01-15 08:48 | XRAY Report ---
Reason: END STAGE RENAL DISEASE,REQUIRED TO START DIALYSIS Procedure Date: 01/15/2019 Accession Number: [id number] / [id number] Procedure: XR - Chest 2 View X-Ray CPT Code: 04007 FULL RESULT: EXAM: CHEST RADIOGRAPHY EXAM DATE: 01/15/2019 08:30 AM. CLINICAL HISTORY: END STAGE RENAL DISEASE,REQUIRED TO START DIALYSIS. COMPARISON: XR CHEST 1 VIEWS 10/13/2010 9:58 PM. TECHNIQUE: 2 views. FINDINGS: Lungs/Pleura: No focal opacities evident. No pleural effusion. No pneumothorax. Normal volumes. Mediastinum: Heart and mediastinal contours are unremarkable. Other: None. IMPRESSION: Normal 2-view chest radiography. No evidence of fluid overload pulmonary edema. RADIA
[2019-01-16 12:57] LABS: HEPATITIS B SURFACE ANTIGEN NON-REACTIVE (NON-REACTIVE)
== END 2019-01-15 08:20 | disposition home or self-care (01) ==
LOC: DI 08:19
PROVIDERS: ATTEND Specialist
DX: N18.6 End stage renal disease (principal)
CPT/HCPCS: 36415; 71046; 86317; 86704; 87340

== ENCOUNTER 2019-01-19 14:28 | Inpatient (IN) | payer MEDICARE, OTHER ==
--- NOTE | 2019-01-19 15:39 | ED Physician Documentation ---
History of Present Illness - Stated complaint Stated Complaint: STOMACH PX - Chief complaint Chief Complaint: Abd Pain - History obtained from History obtained from: Patient - Additonal information Additional information: Patient is a 69-year-old male presenting with several hours of periumbilical abdominal discomfort associated with nausea and vomiting. Patient states that symptoms started earlier today after he ate breakfast. Patient describes feeling as though he has a sour stomach, but denies GERD-like symptoms. Patient denies diarrhea, fever, or other complaints. Patient has extremely complicated past medical history including diabetes, hypertension, end-stage renal disease, prostate cancer. Patient's had a renal transplant about 10 years ago and is likely in end-stage renal disease now and is currently being evaluated for dialysis. Patient also reports history of metastatic prostate cancer that required removal of his bladder and now has a stoma. Patient denies any complications with his stoma. Patient also reports history of small bowel obstruction and other bowel surgery. Patient has had appendectomy and cholecystectomy as well. No other improving or worsening factors noted. Review of Systems Constitutional: denies: Fever GI: reports: Abdominal Pain, Nausea, Vomiting. 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 (kidney transplant, Bladder resection, prostatectomy, lymph node resection) - Present Medications Home Medications: Ambulatory Orders Medication Instructions Recorded Confirmed Aspirin Chewable [St [place]o 81 mg PO DAILY 12/03/13 06/11/18 Aspirin] Carvedilol [Coreg] 50 mg PO BID 12/03/13 06/11/18 Cholecalciferol (Vitamin D3) 2,000 unit PO DAILY 12/03/13 06/11/18 [Vitamin D3] Cinacalcet HCl [Sensipar] 30 mg PO Q48H 12/03/13 06/11/18 Krill Oil 500 mg PO DAILY 12/03/13 06/11/18 Levothyroxine Sodium [Synthroid] 25 mcg PO DAILY 12/03/13 06/11/18 Magnesium Oxide [Magnesium] 400 mg PO DAILY 12/03/13 06/11/18 Omeprazole [PriLOSEC] 20 mg PO DAILY 12/03/13 06/11/18 Potassium Chloride 20 meq PO BID 12/03/13 06/11/18 Prenat Vit Comb.10/Iron/FA/Dha 1 each PO DAILY 12/03/13 06/11/18 [Vitafol-Ob+Dha Combo Pack] Rosuvastatin Calcium [Crestor] 20 mg PO DAILY 12/03/13 06/11/18 Telmisartan [Micardis] 80 mg PO DAILY 12/03/13 06/11/18 amLODIPine [Norvasc] 10 mg PO DAILY 12/03/13 06/11/18 cloNIDine HCl [Clonidine HCl] 0.2 mg PO TID 12/03/13 06/11/18 predniSONE [Deltasone] 5 mg PO DAILY 12/03/13 06/11/18 Insulin Aspart [Novolog] 7 - 12 units SUBQ AC 04/15/14 06/11/18 Insulin Glargine,Hum.rec.anlog 20 units SUBQ DAILY 04/15/14 06/11/18 [Lantus] Docusate Calcium 240 mg PO DAILY 06/11/18 06/11/18 Furosemide 20 mg PO DAILY 06/11/18 06/11/18 Insulin Admin. Supplies [Inpen 1 each SQ QID #120 insuln.pen 06/11/18 (For Novolog)] Tacrolimus [Prograf] 0.5 mg PO QPM 06/11/18 06/11/18 Tacrolimus [Prograf] 1 mg PO DAILY 06/11/18 06/11/18 Wheat Dextrin [Benefiber] 1 each PO DAILY #30 packet 06/11/18 - Allergies Allergies/Adverse Reactions: Allergies Allergy/AdvReac Type Severity Reaction Status Date / Time No Known Drug Allergies Allergy Verified 01/19/19 14:37 - Social History Does the pt smoke?: No Smoking Status: Never smoker Does the pt drink ETOH?: No Does the pt have substance abuse?: No - Immunizations Immunizations are current?: Yes - POLST Patient has POLST: No POLST Status: Full Code PD ED PE NORMAL - Vitals Vital signs reviewed: Yes - General General: Alert and oriented X 3, No acute distress, Well developed/nourished - HEENT HEENT: Atraumatic, Moist mucous membranes - Cardiac Cardiac: RRR, No murmur - Respiratory Respiratory: No respiratory distress, Clear bilaterally - Abdomen Abdomen: Soft, Non distended. No: Non tender (Mild tenderness in periumbilical area. Bladder stoma present without signs of infection or complication.) - Derm Derm: Normal color, Warm and dry, No rash - Extremities Extremities: No deformity, No tenderness to palpate, No edema - Neuro Neuro: Alert and oriented X 3, No motor deficit, No sensory deficit - Psych Psych: Normal mood, Normal affect Results - Vitals Vitals: Vital Signs - 24 hr 01/19/19 01/19/19 01/19/19 14:35 14:36 16:36 Temperature 37.0 C Heart Rate 70 76 74 Respiratory 18 18 18 Rate Blood Pressure 208/89 H 161/87 H O2 Saturation 100 100 99 Oxygen O2 Source Room air - Labs Labs: Laboratory Tests 01/19/19 01/19/19 01/19/19 15:29 15:34 15:34 WBC 18.6 H RBC 3.86 L Hgb 11.7 L Hct 36.4 L MCV 94.3 H MCH 30.3 MCHC 32.1 RDW 14.8 Plt Count 330 MPV 8.4 Neut # (Auto) Not Reportable Lymph # (Auto) Not Reportable [place] # (Auto) Not Reportable Eos # (Auto) Not Reportable Baso # (Auto) Not Reportable Absolute Nucleated RBC Not Reportable Total Counted 100 Band Neuts % (Manual) 3 Reactive Lymphs % (Man) 4 Abnorm Lymph % (Manual) 0 Nucleated RBC % Not Reportable Neutrophils # (Manual) 15.4 H Lymphocytes # (Manual) 2.0 Monocytes # (Manual) 0.7 Eosinophils # (Manual) 0.2 Basophils # (Manual) 0.2 H Differential Comment MANUAL DIFFERENTIAL Platelet Estimate NORMAL (130-450,000) Platelet Morphology NORMAL APPEARANCE RBC Morph Micro Appear NORMAL APPEARANCE Sodium 140 Potassium 3.2 L Chloride 113 H Carbon Dioxide 13 L Anion Gap 14.0 H BUN 95 H* Creatinine 4.3 H Estimated GFR (MDRD) 14 L Glucose 262 H Lactic Acid Calcium 9.4 Total Bilirubin 0.8 AST 16 ALT 18 Alkaline Phosphatase 121 Total Protein 7.8 Albumin 3.7 Globulin 4.1 Albumin/Globulin Ratio 0.9 L Lipase 84 H Urine Color BROWN Urine Clarity CLOUDY Urine pH >=9.0 H Ur Specific [place] <=1.005 Urine Protein >=300 H Urine Glucose (UA) NEGATIVE Urine Ketones NEGATIVE Urine Occult Blood LARGE H Urine Nitrite POSITIVE H Urine Bilirubin NEGATIVE Urine Urobilinogen 1 (NORMAL) Ur Leukocyte Esterase NEGATIVE Urine RBC TNTC H Urine WBC 0-3 Ur Squamous Epith Cells FEW Squamous Urine Bacteria Many H Ur Microscopic Review INDICATED Urine Culture Comments INDICATED 01/19/19 15:55 WBC RBC Hgb Hct MCV MCH MCHC RDW Plt Count MPV Neut # (Auto) Lymph # (Auto) [place] # (Auto) Eos # (Auto) Baso # (Auto) Absolute Nucleated RBC Total Counted Band Neuts % (Manual) Reactive Lymphs % (Man) Abnorm Lymph % (Manual) Nucleated RBC % Neutrophils # (Manual) Lymphocytes # (Manual) Monocytes # (Manual) Eosinophils # (Manual) Basophils # (Manual) Differential Comment Platelet Estimate Platelet Morphology RBC Morph Micro Appear Sodium Potassium Chloride Carbon Dioxide Anion Gap BUN Creatinine Estimated GFR (MDRD) Glucose Lactic Acid 1.9 Calcium Total Bilirubin AST ALT Alkaline Phosphatase Total Protein Albumin Globulin Albumin/Globulin Ratio Lipase Urine Color Urine Clarity Urine pH Ur Specific [place] Urine Protein Urine Glucose (UA) Urine Ketones Urine Occult Blood Urine Nitrite Urine Bilirubin Urine Urobilinogen Ur Leukocyte Esterase Urine RBC Urine WBC Ur Squamous Epith Cells Urine Bacteria Ur Microscopic Review Urine Culture Comments PD MEDICAL DECISION MAKING - ED course Complexity details: reviewed old records, reviewed results, re-evaluated patient, considered differential, d/w patient, d/w family, d/w emergency management consultant ED course: Patient presenting with nausea, vomiting, abdominal pain concerning for small bowel obstruction. Patient has had this issue in the past, likely due to his multiple abdominal surgeries. Patient states symptoms are worse than his previous episodes. Patient has urinary stoma which is intact without signs of infection or complication. No acute surgical abdomen present on exam, patient is mildly tender. Patient started on IV fluids and nausea medication, but did not require pain medication at this time. Patient resting comfortably in bed otherwise. Screening lab work, urinalysis, and imaging obtained. Urinalysis is concerning for infection, but it is from his stoma bag and do not feel this is likely a true infection and do not feel he requires emergent antibiotics for suc h. Screening lab work did find evidence of leukocytosis and other abnormalities reflective of his underlying disease including chronic kidney disease. CT imaging concerning for small bowel obstruction. Spoke with general surgery on- call who did recommend initial medical management, but also felt that patient was likely to be too complex to be treated surgically at this facility. So, if hospitalist agreed to admit for medical management, it is with the understanding that if patient does not improve and will require surgical intervention, he would need transfer. Spoke with hospitalist, who is amenable to this plan. Also spoke with patient, who is amenable to this plan as well as nasogastric tube placement. Departure - Departure Disposition: 66 [facility] DC/Xfer Clinical Impression: Small bowel obstruction
[2019-01-19 15:41] LABS: GLUCOSE, URINE (UA) NEGATIVE (NEGATIVE); KETONES,URINE (UA) NEGATIVE (NEGATIVE); LEUKOCYTE ESTERASE, URINE NEGATIVE (NEGATIVE); NITRITE,URINE POSITIVE (NEGATIVE); OCCULT BLOOD,URINE LARGE (NEGATIVE); PH,URINE >=9.0 PH (5.0-7.5); PROTEIN,URINE >=300 mg/dL (NEGATIVE); UROBILINOGEN,URINE 1 (NORMAL) E.U./dL (NORMAL)
[2019-01-19 15:45] LABS: BILIRUBIN,URINE NEGATIVE (NEGATIVE); CLARITY,URINE CLOUDY (CLEAR); ICTOTEST,URINE NEGATIVE
[2019-01-19 15:47] LABS: BASOPHILS % (AUTO) 0.5 %; EOSINOPHILS % (AUTO) 0.1 %; HGB - HEMOGLOBIN 11.7 g/dL (14.0-18.0); LYMPHOCYTES % (AUTO) 5.6 %; MEAN CORPUSCULAR HEMOGLOBIN 30.3 pg (27.0-31.0); MEAN CORPUSCULAR HGB CONC 32.1 g/dL (32.0-36.0); MEAN CORPUSCULAR VOLUME 94.3 fL (80.0-94.0); MEAN PLATELET VOLUME 8.4 fL (7.4-11.4); MONOCYTES % (AUTO) 3.8 %; PLT - PLATELET COUNT 330 10^3/uL (130-450); RED BLOOD COUNT 3.86 10^6/uL (4.70-6.10); RED CELL DISTRIBUTION WIDTH 14.8 % (12.0-15.0); WHITE BLOOD COUNT 18.6 x10^3/uL (4.8-10.8)
[2019-01-19] MEDS ORDERED: ONDANSETRON 4 MG/2 ML VIAL IVP STA (15:48)
[2019-01-19] MEDS ORDERED: SODIUM CHLORIDE 0.9% 1,000 ML IV ONE (15:48)
[2019-01-19 15:49] LABS: ABNORMAL LYMPHS % (MANUAL) 0 %
[2019-01-19 15:55] LABS: BACTERIA,URINE Many /HPF (None Seen); RBC,URINE TNTC /HPF (0-5); SQUAMOUS EPITHELIAL CELL,UR FEW Squamous (<= Few)
[2019-01-19 16:03] LABS: ALBUMIN 3.7 g/dL (3.2-5.5); ALBUMIN/GLOBULIN RATIO 0.9 (1.0-2.2); BILIRUBIN,TOTAL 0.8 mg/dL (0.2-1.0); CALCIUM 9.4 mg/dL (8.5-10.3); CREATININE 4.3 mg/dL (0.6-1.2); TOTAL PROTEIN 7.8 g/dL (6.7-8.2)
[2019-01-19 16:05] LABS: BAND NEUTROPHILS % (MANUAL) 3 %; BASOPHILS # (MANUAL) 0.2 10^3/uL (0-0.1); BASOPHILS % (MANUAL) 1 %; EOSINOPHILS # (MANUAL) 0.2 10^3/uL (0-0.7); LYMPHOCYTES % (MANUAL) 7 %; MONOCYTES # (MANUAL) 0.7 10^3/uL (0.0-1.0); NEUTROPHILS # (MANUAL) 15.4 10^3/uL (1.5-6.6); NEUTROPHILS % (MANUAL) 80 %; PLATELET ESTIMATE, MANUAL NORMAL (130-450,000) (NORMAL); PLATELET MORPHOLOGY NORMAL APPEARANCE (NORMAL); RBC MORPHOLOGY (MULTIPLE) NORMAL APPEARANCE (NORMAL)
[2019-01-19 16:06] LABS: DIFFERENTIAL COMMENT MANUAL DIFFERENTIAL
[2019-01-19] MEDS ORDERED: MAG HYDROX/AL HYDROX/SIMETH 30 ML UDC PO STA (16:12)
--- NOTE | 2019-01-19 17:08 | CT Report ---
Reason: periumbilical pain, vomiting, kidney transplant Procedure Date: 01/19/2019 Accession Number: [id number] / [id number] Procedure: CT - Abdomen/Pelvis WO CPT Code: FULL RESULT: EXAM: CT ABDOMEN AND PELVIS EXAM DATE: 01/19/2019 04:41 PM. CLINICAL HISTORY: Periumbilical pain, vomiting, kidney transplant. COMPARISONS: ABDOMEN/PELVIS W/O 06/10/2018 8:34 PM. TECHNIQUE: Routine helical CT imaging was performed through the abdomen and pelvis. IV contrast: None. Enteric contrast: No. Reconstructions: Coronal and sagittal. In accordance with CT protocol optimization, one or more of the following dose reduction techniques were utilized for this exam: automated exposure control, adjustment of mA and/or KV based on patient size, or use of iterative reconstructive technique. FINDINGS: Limited exam without intravenous contrast, particularly of solid abdominal organs. Lung Bases: Mild right middle lobe scarring. Liver: Unremarkable. Gallbladder/Bile Ducts: Cholecystectomy. Spleen: Unremarkable Pancreas: Calcifications along the pancreas are likely vascular. Adrenal Glands: Unremarkable. Kidneys: Severe atrophy of the knik kidneys. There is a left lower quadrant renal transplant without hydronephrosis. Peritoneal Cavity/Bowel: Duodenum is not dilated. There mild to moderately dilated loops of jejunum in the central mesentery, which appear edematous. Adjacent mesenteric edema and fluid. Transition point appears to be in the lower ventral abdomen adjacent to the incisional scar. There is a right abdominal ileostomy or urostomy. Surgical changes on the pelvis and right lower quadrant bowel are similar. Small to moderate amount of ascites. No free air. Diverticulosis of the ascending colon. Pelvic Organs: Surgical changes from cystectomy. Vasculature: Severe atherosclerosis. Bones: Lumbar degenerative changes. Other: Retractile right testicle in the right inguinal canal. IMPRESSION: Small bowel obstruction, possibly due to adhesions. The dilated small bowel loops in the central mesentery are edematous. No pneumatosis or free air. Small to moderate ascites. RADIA
[2019-01-19] MEDS ORDERED: HYDROmorphone 0.5 MG/0.5 ML SYRINGE IVP PRN (17:53)
[2019-01-19] MEDS ORDERED: PROCHLORPERAZINE 10 MG/2 ML VIAL IVP PRN (17:53)
[2019-01-19] MEDS ORDERED: ONDANSETRON 4 MG/2 ML VIAL IVP PRN (17:53)
[2019-01-19] MEDS ORDERED: ACETAMINOPHEN 1,000 MG/100 ML 100 ML IV PRN (18:00)
--- NOTE | 2019-01-19 18:10 | HISTORY & PHYSICAL EXAMINATION ---
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 On this visitation patient is presenting with several hours of periumbilical abdominal discomfort associated with nausea and vomiting. Patient states that symptoms started earlier today after he ate breakfast. Patient describes feeling as though he has a sour stomach, but denies GERD-like symptoms. Patient denies diarrhea, fever, or other complaints. Patient also reports history of metastatic prostate cancer that required removal of his bladder and now has a stoma. Patient denies any complications with his stoma. Patient also reports history of small bowel obstruction and other bowel surgery. Patient has had appendectomy and cholecystectomy as well. No other improving or worsening factors noted. Patient presented similarly in symptomatology to admission back in June [address] Allan Mistry evaluating him and treating him with supportive and medical management back then. On this visitation patient's potassium was 3.2, CO2 of 13, creatinine of 4.3 with a baseline ranging between 2.3 and 3.7, glucose of 262 with an anion gap of 14, hemoglobin of 11.7 with a baseline ranging between 10.4-13.2, macrocytosis noted, WBC elevated at 18.6 with 3% bands, lipase and LFTs within normal limits, UA showed 300+ proteinuria with positive nitrites, large blood, many bacteria with negative ketones, RBCs too many to count, WBC 0-3 per high-power field. Previously on 01/07/2019 there was a concern for possible tacrolimus toxicity however level was low at 4.3. In addition patient on 06/11/2018 had a hemoglobin A1c of 9.8% with evidence of uncontrolled insulin requiring type 2 diabetes mellitus. Also uncontrolled hypokalemia with an LDL of 122 and total cholesterol 235 dated 10/23/2016. P atient with a history of noncompliance. CT abdomen pelvis on this visitation showed Small bowel obstruction, possibly due to adhesions. The dilated small bowel loops in the central mesentery are edematous. No pneumatosis or free air. Small to moderate ascites present. Dr. Morales was consulted however she recommended supportive and conservative medical management for now and she would unlikely perform surgery or lysis of adhesions due to patient's complicated past medical history with multiple abdominal surgeries. Patient will be having an NG tube placed to intermittent suction, bowel rest, IV fluids, and pain control to be initiated. 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: Other (kidney transplant, Bladder resection, prostatectomy, lymph node resection) Social & Family Hx - Social History Does the pt smoke?: No Smoking Status: Never smoker Does the pt drink ETOH?: No Does the pt have substance abuse?: No - POLST Patient has POLST: No POLST Status: Full Code Meds/Allgy - Home Medications Home Medications: Ambulatory Orders Medication Instructions Recorded Confirmed Aspirin Chewable [[place] 81 mg PO DAILY 12/03/13 06/11/18 Aspirin] Carvedilol [Coreg] 50 mg PO BID 12/03/13 06/11/18 Cholecalciferol (Vitamin D3) 2,000 unit PO DAILY 12/03/13 06/11/18 [Vitamin D3] Cinacalcet HCl [Sensipar] 30 mg PO Q48H 12/03/13 06/11/18 Krill Oil 500 mg PO DAILY 12/03/13 06/11/18 Levothyroxine Sodium [Synthroid] 25 mcg PO DAILY 12/03/13 06/11/18 Magnesium Oxide [Magnesium] 400 mg PO DAILY 12/03/13 06/11/18 Omeprazole [PriLOSEC] 20 mg PO DAILY 12/03/13 06/11/18 Potassium Chloride 20 meq PO BID 12/03/13 06/11/18 Prenat Vit Comb.10/Iron/FA/Dha 1 each PO DAILY 12/03/13 06/11/18 [Vitafol-Ob+Dha Combo Pack] Rosuvastatin Calcium [Crestor] 20 mg PO DAILY 12/03/13 06/11/18 Telmisartan [Micardis] 80 mg PO DAILY 12/03/13 06/11/18 amLODIPine [Norvasc] 10 mg PO DAILY 12/03/13 06/11/18 cloNIDine HCl [Clonidine HCl] 0.2 mg PO TID 12/03/13 06/11/18 predniSONE [Deltasone] 5 mg PO DAILY 12/03/13 06/11/18 Insulin Aspart [Novolog] 7 - 12 units SUBQ AC 04/15/14 06/11/18 Insulin Glargine,Hum.rec.anlog 20 units SUBQ DAILY 04/15/14 06/11/18 [Lantus] Docusate Calcium 240 mg PO DAILY 06/11/18 06/11/18 Furosemide 20 mg PO DAILY 06/11/18 06/11/18 Insulin Admin. Supplies [Inpen 1 each SQ QID #120 insuln.pen 06/11/18 (For Novolog)] Tacrolimus [Prograf] 0.5 mg PO QPM 06/11/18 06/11/18 Tacrolimus [Prograf] 1 mg PO DAILY 06/11/18 06/11/18 Wheat Dextrin [Benefiber] 1 each PO DAILY #30 packet 06/11/18 - Allergies Allergies/Adverse Reactions: Allergies Allergy/AdvReac Type Severity Reaction Status Date / Time No Known Drug Allergies Allergy Verified 01/19/19 14:37 Review of Systems - All Other Systems All Other Systems: reports: Reviewed and negative Prior Level of Functionality: Patient is ambulatory with good functional capacity and adequate home ADLs Exam - Vital Signs Reviewed Vital Signs: Yes Vital Signs: Vital Signs x48h Temp Pulse Resp BP Pulse Ox 01/19/19 16:36 74 18 161/87 H 99 01/19/19 14:36 76 18 208/89 H 100 01/19/19 14:35 37.0 C 70 18 100 - Physical Exam General Appearance: positive: No acute distress, Alert Eyes Bilateral: positive: Normal inspection, PERRL, EOMI ENT: positive: ENT inspection nml, Pharynx nml, No signs of dehydration Neck: positive: Nml inspection, Thyroid nml, No JVD, Trachea midline. negative: Thyromegaly Respiratory: positive: Chest non-tender, No respiratory distress, Breath sounds nml Cardiovascular: positive: Regular rate & rhythm, No murmur, No gallop Peripheral Pulses: positive: 2+ Abdomen: positive: No organomegaly, Tenderness (Tenderness to the epigastrium and lower quadrants.), Abnml bowel sounds, Other (Urostomy bag does not appear to have purulent material or blood.). negative: No distention, Guarding, Rebound, Mass, Bruit Back: positive: Nml inspection Skin: positive: Color nml, No rash, Warm Extremities: positive: Non-tender, Full ROM, Nml appearance Neurologic/Psychiatric: positive: Oriented x3, CN's nml (2-12) Results - Lab Results Lab results reviewed: Yes Fish Bones: 01/19/19 15:34 01/19/19 15:34 Other Lab Results: Lab Results x24hrs 01/19/19 01/19/19 01/19/19 Range/Units 15:55 15:34 15:34 WBC 18.6 H (4.8-10.8) x10^3/uL RBC 3.86 L (4.70-6.10) 10^6/uL Hgb 11.7 L (14.0-18.0) g/dL Hct 36.4 L (42.0-52.0) % MCV 94.3 H (80.0-94.0) fL MCH 30.3 (27.0-31.0) pg MCHC 32.1 (32.0-36.0) g/dL RDW 14.8 (12.0-15.0) % Plt Count 330 (130-450) 10^3/uL MPV 8.4 (7.4-11.4) fL Neut # (Auto) Not Reportable Lymph # (Auto) Not Reportable [place] # (Auto) Not Reportable Eos # (Auto) Not Reportable Baso # (Auto) Not Reportable Absolute Nucleated RBC Not Reportable Total Counted 100 Band Neuts % (Manual) 3 (0 - 10) % Reactive Lymphs % (Man) 4 % Abnorm Lymph % (Manual) 0 % Nucleated RBC % Not Reportable Neutrophils # (Manual) 15.4 H (1.5-6.6) 10^3/uL Lymphocytes # (Manual) 2.0 (1.5-3.5) 10^3/uL Monocytes # (Manual) 0.7 (0.0-1.0) 10^3/uL Eosinophils # (Manual) 0.2 (0-0.7) 10^3/uL Basophils # (Manual) 0.2 H (0-0.1) 10^3/uL Differential Comment MANUAL DIFFERENTIAL Platelet Estimate NORMAL (130-450,000) (NORMAL) Platelet Morphology NORMAL APPEARANCE (NORMAL) RBC Morph Micro Appear NORMAL APPEARANCE (NORMAL) Sodium 140 (135-145) mmol/L Potassium 3.2 L (3.5-5.0) mmol/L Chloride 113 H (101-111) mmol/L Carbon Dioxide 13 L (21-32) mmol/L Anion Gap 14.0 H (6-13) BUN 95 H* (6-20) mg/dL Creatinine 4.3 H (0.6-1.2) mg/dL Estimated GFR (MDRD) 14 L (>89) Glucose 262 H (70-100) mg/dL Lactic Acid 1.9 (0.5-2.2) mmol/L Calcium 9.4 (8.5-10.3) mg/dL Total Bilirubin 0.8 (0.2-1.0) mg/dL AST 16 (10-42) IU/L ALT 18 (10-60) IU/L Alkaline Phosphatase 121 (42-121) IU/L Total Protein 7.8 (6.7-8.2) g/dL Albumin 3.7 (3.2-5.5) g/dL Globulin 4.1 (2.1-4.2) g/dL Albumin/Globulin Ratio 0.9 L (1.0-2.2) Lipase 84 H (22-51) U/L Urine Color Urine Clarity (CLEAR) Urine pH (5.0-7.5) PH Ur Specific [place] (1.002-1.030) Urine Protein (NEGATIVE) mg/dL Urine Glucose (UA) (NEGATIVE) mg/dL Urine Ketones (NEGATIVE) mg/dL Urine Occult Blood (NEGATIVE) Urine Nitrite (NEGATIVE) Urine Bilirubin (NEGATIVE) Urine Urobilinogen (NORMAL) E.U./dL Ur Leukocyte Esterase (NEGATIVE) Urine RBC (0-5) /HPF Urine WBC (0-3) /HPF Ur Squamous Epith Cells (<= Few) Urine Bacteria (None Seen) /HPF Ur Microscopic Review Urine Culture Comments 01/19/19 Range/Units 15:29 WBC (4.8-10.8) x10^3/uL RBC (4.70-6.10) 10^6/uL Hgb (14.0-18.0) g/dL Hct (42.0-52.0) % MCV (80.0-94.0) fL MCH (27.0-31.0) pg MCHC (32.0-36.0) g/dL RDW (12.0-15.0) % Plt Count (130-450) 10^3/uL MPV (7.4-11.4) fL Neut # (Auto) Lymph # (Auto) [place] # (Auto) Eos # (Auto) Baso # (Auto) Absolute Nucleated RBC Total Counted Band Neuts % (Manual) (0 - 10) % Reactive Lymphs % (Man) % Abnorm Lymph % (Manual) % Nucleated RBC % Neutrophils # (Manual) (1.5-6.6) 10^3/uL Lymphocytes # (Manual) (1.5-3.5) 10^3/uL Monocytes # (Manual) (0.0-1.0) 10^3/uL Eosinophils # (Manual) (0-0.7) 10^3/uL Basophils # (Manual) (0-0.1) 10^3/uL Differential Comment Platelet Estimate (NORMAL) Platelet Morphology (NORMAL) RBC Morph Micro Appear (NORMAL) Sodium (135-145) mmol/L Potassium (3.5-5.0) mmol/L Chloride (101-111) mmol/L Carbon Dioxide (21-32) mmol/L Anion Gap (6-13) BUN (6-20) mg/dL Creatinine (0.6-1.2) mg/dL Estimated GFR (MDRD) (>89) Glucose (70-100) mg/dL Lactic Acid (0.5-2.2) mmol/L Calcium (8.5-10.3) mg/dL Total Bilirubin (0.2-1.0) mg/dL AST (10-42) IU/L ALT (10-60) IU/L Alkaline Phosphatase (42-121) IU/L Total Protein (6.7-8.2) g/dL Albumin (3.2-5.5) g/dL Globulin (2.1-4.2) g/dL Albumin/Globulin Ratio (1.0-2.2) Lipase (22-51) U/L Urine Color BROWN Urine Clarity CLOUDY (CLEAR) Urine pH >=9.0 H (5.0-7.5) PH Ur Specific [place] <=1.005 (1.002-1.030) Urine Protein >=300 H (NEGATIVE) mg/dL Urine Glucose (UA) NEGATIVE (NEGATIVE) mg/dL Urine Ketones NEGATIVE (NEGATIVE) mg/dL Urine Occult Blood LARGE H (NEGATIVE) Urine Nitrite POSITIVE H (NEGATIVE) Urine Bilirubin NEGATIVE (NEGATIVE) Urine Urobilinogen 1 (NORMAL) (NORMAL) E.U./dL Ur Leukocyte Esterase NEGATIVE (NEGATIVE) Urine RBC TNTC H (0-5) /HPF Urine WBC 0-3 (0-3) /HPF Ur Squamous Epith Cells FEW Squamous (<= Few) Urine Bacteria Many H (None Seen) /HPF Ur Microscopic Review INDICATED Urine Culture Comments INDICATED - Diagnostic Imaging Results Diagnostic Imaging Results: positive: Final report reviewed - EKG Results EKG Interpreted Independently: No Impression/Plan - Problem List Problem List: 1. Acute recurrent small bowel obstruction secondary to adhesions from multiple abdominal surgeries Will admit to observation status, placed on IV fluids to avoid fluid overload as patient has existing chronic kidney disease, bowel rest, pain control with Dilaudid low-dose, NG tube to intermittent suction, conservative medical management as recommended by Dr. Morales with consideration to transfer to higher level of care as she will defer off performing exploratory lap with lysis of adhesions due to multiple abdominal surgeries which would make this patient a complicated case. Serial abdominal exams, KUB in a.m. Will encourage ambulation as well as chewing gum to improve bowel peristalsis. 2. Acute recurrent abdominal pain secondary to #1 Pain control, antiemetics, fluids and supportive care. 3. Hematuria with abnormal UA sec to colonizaton Urine culture was reflexed and this would be pending, of note patient grew out E. coli on last admission but was deemed a colonizer and was not treated for with IV antibiotics, will defer for now as patient despite having SIRS does not display flank pain or urinary complaints without any fevers however he is immunosuppressed. Patient certainly has risk factors due to urostomy bag present but does not appear to be infected. 4. Acute on chronic renal failure, progressed to CKD stage IV Patient has progressive diabetic/Hypertensive nephropathy. 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 In the meantime we will avoid nephrotoxic agents, correct underlying electrolyte disturbance, follow renal panel. Of note patient has had creatinine from 3.1 on last admission 06/23, was 3.1 and was 4.3 on admission. Baseline ranges between 2.3 and 3.7. 5. SIRS with bandemia secondary to #1/#2 Currently no source of infection despite elevated WBC which could be due to his steroids. We will obtain 2 sets of blood cultures, lactic acid to follow. Urine culture pending 6. Electrolyte disturbance/hypokalemia We will check magnesium level, will hold off on correcting potassium due to chronic kidney disease stage IV. 7. History of a renal transplant on immunosuppressant agent-tacrolimus Per primary bone plant supervisor in [place] patient likely has on 10-year life of transplanted kidney therefore likely requiring hemodialysis. Tacrolimus unfortunately comes in capsules and do not think this could be crushed and administered per NG tube. Continue with prednisone crushed via NGT. We will continue with conservative management for now. 8. Accelerated hypertension Would place hold on patient's Micardis as this is nonformulary, would resume home BP meds to include Coreg, norvasc, Lasix, clonidine as crushed via NG tube. Would place on hydralazine IV PRN with parameters. Patient with chronic kidney disease associated accelerated hypertension also respond well to Procardia XL. 9. Hypothyroidism Will resume Synthroid crushed via NG tube. Will check TSH with t4/t3 as this may influence SBO and HTN if abnormal and correct accordingly. 10. Uncontrolled hyperlipidemia Continue with atorvastatin, patient was previously on Crestor. We will check a lipid panel in a.m. 11. Multifactorial anemia of chronic kidney disease with iron deficiency anemia Does not appear to have decreasing trending with no evidence of GI bleeding. Would monitor H&H trending only. 12. Secondary hyperparathyroidism due to chronic kidney disease Likely secondary to progressive chronic kidney disease, renal diet; low phosphorus diet, phosphate binders, vitamin D derivatives, already on sensipar as PTH is moving target. 13. Diverticulosis This was seen on last CT abdomen pelvis and with no evidence of diverticulitis. 14. Uncontrolled insulin requiring type 2 diabetes mellitus with long-term current use of insulin We will obtain a updated hemoglobin A1c, patient has a history of uncontrolled IDDM with prior hemoglobin A1c of 9.8%. Due to patient's n.p.o. status will provide bolus coverage only. Patient has declined the use of Lantus due to hypoglycemic events. 15. Advance care education counseling and planning Plan of care along with goals of care discussed with multiple medical conditions that would complicate patient's trajectory of illness as well as dealing with the complications and provider burden. Patient chooses to be full code Initiate DVT prophylaxis with SCDs as patient will be encouraged for ambulation. GI prophylaxis with renal adjusted PPI CODE STATUS: Full code Core Measures - Anticipated LOS I expect patient to be DC'd or transferred within 96 hours.: Yes - Issues Hospital Issues and Management Plan: Patient should be admitted to observation status for medical and supportive management of small bowel obstruction. If patient fails medical management surgery service has recommended transfer to higher level of care - DVT/VTE - Prophylaxis VTE/DVT Device ordered at admit?: Yes VTE/DVT Prophylaxis med ordered at admit?: No Not Ordered - Medical Reason: Not indicated - Stroke - Rehab Assessment Rehab services assessment to be ordered?: No Not Ordered - Medical Reason: Not indicated - AMI - Statin at Admit Aspirin Prescribed on Admit: No Not Ordered - Medical Reason: Not indicated
[2019-01-19 18:38] LABS: HB2 TOTAL 12.3 g/dL; HEMOGLOBIN A1C % 9.6 % (4.6-6.2)
[2019-01-19] MEDS ORDERED: hydrALAZINE INJ 20 MG/ML VIAL IVP PRN (18:44)
[2019-01-19] MEDS ORDERED: CINACALCET HCL 30 MG PO SCH (18:45)
--- NOTE | 2019-01-19 18:53 | XRAY Report ---
Reason: Status post NG tube placement Procedure Date: 01/19/2019 Accession Number: [id number] / [id number] Procedure: XR - Chest 1 View X-Ray CPT Code: 67275 FULL RESULT: EXAM: CHEST RADIOGRAPHY. EXAM DATE: 01/19/2019 06:39 PM. CLINICAL HISTORY: Status post nasogastric tube placement. COMPARISON: CHEST 2 VIEW 01/15/2019 8:20 AM. TECHNIQUE: 1 view. FINDINGS: Lungs/Pleura: No focal opacities evident. No pleural effusion. No pneumothorax. Mediastinum: Within exam limitations, the cardiomediastinal contour is normal. Other: Distal tip of nasogastric tube placed within the gastric fundus. IMPRESSION: Distal tip of nasogastric tube within gastric fundus. RADIA
[2019-01-19] MEDS: DEXTROSE 5%-0.9% NACL 1,000 ML IV SCH (19:42)
[2019-01-19] MEDS: PANTOPRAZOLE 40 MG VIAL IVP SCH (19:44)
[2019-01-19] MEDS: INSULIN REGULAR HUMAN 100 UNIT/1 ML 10 ML MDV SUBQ SCH (20:54)
[2019-01-19] MEDS ORDERED: ATORVASTATIN 40 MG TABLET PO SCH (21:00)
[2019-01-19] MEDS: cloNIDine 0.1 MG TABLET PO SCH (21:57)
[2019-01-20] MEDS: INSULIN REGULAR HUMAN 100 UNIT/1 ML 10 ML MDV SUBQ SCH ×2 (01:02→06:00)
[2019-01-20] MEDS: SODIUM CHLORIDE FLUSH 0.9% 10 ML SYRINGE IVP SCH ×3 (01:04→16:51)
[2019-01-20] MEDS: DEXTROSE 5%-0.9% NACL 1,000 ML IV SCH (05:19)
[2019-01-20] MEDS: cloNIDine 0.1 MG TABLET PO SCH ×2 (06:02→13:35)
[2019-01-20] MEDS: SODIUM CHLORIDE FLUSH 0.9% 10 ML SYRINGE IVP PRN ×2 (06:09→10:58)
[2019-01-20] MEDS: PANTOPRAZOLE 40 MG VIAL IVP SCH (06:09)
[2019-01-20 08:10] LABS: BASOPHILS # (AUTO) 0.1 10^3/uL (0.0-0.1); BASOPHILS % (AUTO) 0.7 %; EOSINOPHILS % (AUTO) 0.3 %; HGB - HEMOGLOBIN 9.2 g/dL (14.0-18.0); LYMPHOCYTES # (AUTO) 1.4 10^3/uL (1.5-3.5); LYMPHOCYTES % (AUTO) 8.9 %; MEAN CORPUSCULAR HEMOGLOBIN 30.3 pg (27.0-31.0); MEAN CORPUSCULAR HGB CONC 32.5 g/dL (32.0-36.0); MEAN CORPUSCULAR VOLUME 93.3 fL (80.0-94.0); MONOCYTES # (AUTO) 1.3 10^3/uL (0.0-1.0); MONOCYTES % (AUTO) 8.1 %; NEUTROPHILS # (AUTO) 13.3 10^3/uL (1.5-6.6); PLT - PLATELET COUNT 219 10^3/uL (130-450); RED BLOOD COUNT 3.03 10^6/uL (4.70-6.10); RED CELL DISTRIBUTION WIDTH 14.8 % (12.0-15.0); WHITE BLOOD COUNT 16.2 x10^3/uL (4.8-10.8)
[2019-01-20 08:34] LABS: ALBUMIN 2.4 g/dL (3.2-5.5); ALBUMIN/GLOBULIN RATIO 0.8 (1.0-2.2); BILIRUBIN,TOTAL 0.5 mg/dL (0.2-1.0); CALCIUM 8.4 mg/dL (8.5-10.3); CREATININE 3.7 mg/dL (0.6-1.2); TOTAL PROTEIN 5.4 g/dL (6.7-8.2)
[2019-01-20] MEDS ORDERED: FUROSEMIDE 20 MG TABLET PO SCH (09:00)
[2019-01-20] MEDS ORDERED: ASPIRIN CHEW 81 MG TABLET PO SCH (09:00)
[2019-01-20] MEDS ORDERED: predniSONE 5 MG TABLET PO SCH (09:00)
[2019-01-20] MEDS ORDERED: POLYETHYLENE GLYCOL 3350 17 GM PACKET PO SCH (09:00)
[2019-01-20] MEDS ORDERED: LOSARTAN 50 MG TABLET PO SCH (09:00)
[2019-01-20] MEDS ORDERED: LEVOTHYROXINE 25 MCG TABLET PO SCH (09:00)
--- NOTE | 2019-01-20 09:25 | XRAY Report ---
Reason: SBO Procedure Date: 01/20/2019 Accession Number: [id number] / [id number] Procedure: XR - Abdomen 1 View X-Ray CPT Code: 98044 FULL RESULT: EXAM: ABDOMEN RADIOGRAPHY EXAM DATE: 01/20/2019 09:11 AM. CLINICAL HISTORY: Small bowel obstruction. COMPARISON: ABDOMEN 2 VIEW 06/11/2018 12:04 PM. TECHNIQUE: 1 view. FINDINGS: Bowel Gas Pattern: Gas is seen in the large bowel and small bowel loops. Focal dilation of small bowel loops is seen in the left upper quadrant, maximal caliber 3.7 cm. Other: None. IMPRESSION: Nonobstructive bowel gas pattern with dilated small bowel loops in the left upper quadrant. RADIA
[2019-01-20] MEDS ORDERED: SODIUM BICARBONATE ABBOJECT 50 MEQ/50 ML SYRINGE IVP ONE (10:18)
[2019-01-20] MEDS ORDERED: CINACALCET HCL 30 MG PO SCH (10:36)
[2019-01-20] MEDS: POTASSIUM CHLOR 10 MEQ/100 ML 10 MEQ/100 ML BAG IV SCH ×2 (10:56→12:30)
[2019-01-20] MEDS ORDERED: SODIUM CHLORIDE 0.9% 1,000 ML IV SCH (11:27)
--- NOTE | 2019-01-20 12:16 | MISCELLANEOUS PROVIDER NOTE ---
Miscellaneous Provider Note - - Note: HPI Comment/Other: Patient is a 69-year-old [place] male With a complicated past medical history which includes renal transplant in 2008 with chronic kidney disease stage IV now being evaluated for dialysis by primary production team member in [place], transplanted kidney on immunosuppressants with tacrolimus, bladder cancer in 2017 status post bladder, prostatectomy and lymph node resection status post urostomy, insulin- dependent type 2 diabetes mellitus, hypertension, hyperlipidemia, hypothyroidism, who had been admitted in June 2018 for Partial small bowel obstruction. On this visitation patient is presenting with several hours of periumbilical abdominal discomfort associated with nausea and vomiting. Patient states that symptoms started earlier today after he ate breakfast. Patient describes feeling as though he has a sour stomach, but denies GERD-like symptoms. Patient denies diarrhea, fever, or other complaints. Patient also reports history of metastatic prostate cancer that required removal of his bladder and now has a stoma. Patient denies any complications with his stoma. Patient also reports history of small bowel obstruction and other bowel surgery. Patient has had appendectomy and cholecystectomy as well. No other improving or worsening factors noted. Patient presented similarly in symptomatology to admission back in June [address] Allan Mistry evaluating him and treating him with supportive and medical management back then. On this visitation patient's potassium was 3.2, CO2 of 13, creatinine of 4.3 with a baseline ranging between 2.3 and 3.7, glucose of 262 with an anion gap of 14, hemoglobin of 11.7 with a baseline rang ing between 10.4-13.2, macrocytosis noted, WBC elevated at 18.6 with 3% bands, lipase and LFTs within normal limits, UA showed 300+ proteinuria with positive nitrites, large blood, many bacteria with negative ketones, RBCs too many to count, WBC 0-3 per high-power field. Previously on 01/07/2019 there was a concern for possible tacrolimus toxicity however level was low at 4.3. In addition patient on 06/11/2018 had a hemoglobin A1c of 9.8% with evidence of uncontrolled insulin requiring type 2 diabetes mellitus. Also uncontrolled hypokalemia with an LDL of 122 and total cholesterol 235 dated 10/23/2016. Patient with a history of noncompliance. CT abdomen pelvis on this visitation showed Small bowel obstruction, possibly due to adhesions. The dilated small bowel loops in the central mesentery are edematous. No pneumatosis or free air. Small to moderate ascites present. Dr. Morales was consulted however she recommended supportive and conservative medical management for now and she would unlikely perform surgery or lysis of adhesions due to patient's complicated past medical history with multiple abdominal surgeries. Patient will be having an NG tube placed to intermittent suction, bowel rest, IV fluids, and pain control to be initiated. Subjective: Patient feeling much better with abdominal pain no nausea no vomiting no chest pain or shortness of breath. Urostomy bag appears to be clean with no gross hematuria or surrounding erythema. Patient is an uncontrolled diabetic. Denies fevers, maculopapular rashes. Currently with an NG tube with decreased aspirate amount. Objective: Patient is hemodynamically stable, Afebrile, heart rate of 91, blood pressure 182/67, RR 17, 99% O2 saturation on room air. HEENT: NCAT. Mild conjunctival pallor no buccal lesions, positive pallor to sclera. NG tube with no ivett drainage with decrease aspirate amount in canister. Neck: No JVD/bruit/lymphadenopathy CV/lungs: RRR, S1-S2 within normal limits. No murmurs, gallops, clicks, rubs. CTA BL Abdomen: Surgical scars from prior abdominal surgeries with urostomy bag that is without surrounding erythema with stoma intact. Positive bowel sounds all quadrants, no hepatosplenomegaly, no hernias. Extremities/skin: No edema, clubbing, or cyanosis Neuro: Grossly intact Labs: Reviewed Imaging studies: Reviewed Assessment/plan: 1. Acute recurrent small bowel obstruction secondary to adhesions from multiple abdominal surgeries; Resolving Patient's abdominal x-ray shows resolution to SBO. Patient's abdominal pain has significantly improved on conservative management and with NG tube aspirate significantly less, NG tube clamped, clears trial with advancing to full trial if tolerates and then discontinuing NG tube. Patient not a candidate for laparotomy with lysis of adhesions as per Dr. Morales due to complicated surgical past. There is peristalsis and positive bowel sounds on exam. Discharge mauricio nning. 2. Acute recurrent abdominal pain secondary to #1 Pain control, antiemetics, fluids and supportive care. 3. Hematuria with abnormal UA sec to colonizaton Hematuria seen in urostomy bag although significant is not related to patient's polymicrobial colonized specimen seen on urine culture which shows more than 100 K which represents contamination likely. Although patient's WBC count was elevated initially without fevers and no source of infection however he is not immunosuppressed and receiving steroids. 4. Acute on chronic renal failure, progressed to CKD stage IV Patient has progressive diabetic/Hypertensive nephropathy. Patient's primary production team member in [place] is currently evaluating patient for possible dialysis. In the meantime we will avoid nephrotoxic agents, correct underlying electrolyte disturbance, follow renal panel. Of note patient has had creatinine from 3.1 on last admission 06/23, was 3.1 and was 4.3 on admission. Baseline ranges between 2.3 and 3.7. 5. SIRS with bandemia secondary to #1/#2 WBC has down trended to 16.2, risk factors would be chronic steroids and on immunosuppressants for patient's renal transplantation, urine culture does not reveal pathology for patient's elevated white count without fevers with a normal lactic acid. Urine culture shows polymicrobial organisms indicative of colonization/contamination. Lactic acid was 1.5. Would follow blood cultures x2. 6. Chronic metabolic acidosis with associated Electrolyte disturbance/hypokalemia Patient does take potassium chloride at home and today's potassium was 2.9 will replace with IV K rider along with a 50 mEq of bicarbonate. 7. History of a renal transplant/CKD Stage IV on immunosuppressant agent- tacrolimus Per primary production team member in [place] patient likely has on 10-year life of transplanted kidney therefore likely requiring hemodialysis. Would continue with conservative management and restarting patient's tacrolimus as well as prednisone once NG tube is removed and patient is tolerating full liquid diet 8. Accelerated hypertension Will place patient back on PO clonidine, Micardis, Coreg, Norvasc, Lasix as well as IV BP meds with as needed parameters 9. Hypothyroidism Will resume Synthroid. TSH is normal. 10. Uncontrolled hyperlipidemia Continue with statin. 11. Multifactorial anemia of chronic kidney disease with iron deficiency anemia Does not appear to have decreasing trending with no evidence of GI bleeding. Would monitor H&H trending only. 12. Secondary hyperparathyroidism due to chronic kidney disease Likely secondary to progressive chronic kidney disease, renal diet; low phosphorus diet, phosphate binders, vitamin D derivatives, already on sensipar as PTH is moving target. 13. Mild malnutrition, present on admission Fluid intake of less than 50 to 75% of normal in the preceding week. Weight loss less than the listed for moderate nutrition: 7% in the past 7 months. 14. Uncontrolled insulin requiring type 2 diabetes mellitus with long-term current use of insulin Hemoglobin A1c is 9.6%. Diabetic education will be provided prior to discharge. Will place back on insulin sliding scale correctional dose while patient is eating. Patient has declined the use of Lantus due to hypoglycemic events. 15. Advance care education counseling and planning Plan of care along with goals of care discussed with multiple medical conditions that would complicate patient's trajectory of illness as well as dealing with the complications and provider burden. Patient chooses to be full code DVT prophylaxis with SCDs as patient will be encouraged for ambulation. GI prophylaxis with renal adjusted PPI CODE STATUS: Full code
[2019-01-20] MEDS: INSULIN ASPART 300 UNIT/3 ML PEN SUBQ SCH ×2 (12:34→16:48)
[2019-01-20] MEDS ORDERED: CINACALCET HCL 30 MG NG SCH (12:51)
--- NOTE | 2019-01-20 15:10 | Discharge Plan ---
Discharge Plan Disposition: Home, Self Care Condition: Good Prescriptions: Ondansetron Odt [Zofran Odt] 4 mg PO Q4HR PRN #40 tablet PRN Reason: Nausea / Vomiting Diet: Diabetic (Carb controlled diet to continue at home.) Activity Restrictions: Activity as Tolerated Shower Restrictions: No Driving Restrictions: No Instruction Topics: Obstruction Sm Bowel, Diabetes Senior Living Complications, Diabetes Kidney Disease, Diabetes Check Blood Sugar Ch, Diabetes High Blood Sugar Ch, Diabetes Type 1 Use Insulin , ED Abdominal Pain Adhesions Additional Instructions or Follow Up instructions: You were admitted to [facility] for a recurrence of your small bowel obstruction that showed evidence of obstruction at the level of the small intestine on CT scan of abdomen and pelvis. Your potassium was low and this was replaced with IV potassium. You had an NG tube placement due to your small bowel obstruction in order to decompress your small intestine which essentially resolved with medical management, IV fluids, bowel rest and pain control. In addition to your multiple complicated past surgical history our surgeon had evaluated you and deemed you high risk for a surgical exploration with lysis of adhesions which is likely the cause of your recurrent small bowel obstruction. You were again instructed to avoid raw vegetables, nuts and or seeds or any other foods that you have been instructed in the past that would cause you to have a small bowel obstruction. You were found to have uncontrolled insulin requiring type 2 diabetes mellitus with your Hemoglobin A1c at 9.6%. Your goal of hemoglobin A1c should be below 7.0%. You have been given instructions to follow-up at the [facility] clinic for diabetic education and instructions. Your urine culture grew out a colonization which did not appear to give you an infection even in the setting of your elevated WBC count which is likely related to chronic Prograf and prednisone use. You will continue with all your home medications with continued with controlling your sugars, medical compliance from all your doctors to include your primary floating derrick operator, and your PCP which you will return to in 1 or 2 weeks. Follow-Up Care: [facility] Clinic - Diabetes Ed (Due to patient's hemoglobin A1c that was 9.6%, Uncontrolled insulin requiring type 2 diabetes mellitus. Will need education and counseling as an outpatient, Due to his worsening renal function diabetic nephropathy with history of renal transplantation on tacrolimus/prednisone) No Smoking: If you smoke, Please STOP! Call for help. Follow-up with: Alen Mrach DO [Primary Care Provider] - 1 Week (To return to PCP in 1 to 2 weeks)
--- NOTE | 2019-01-20 15:26 | DISCHARGE SUMMARY ---
"Discharge Summary Admit Date: 01/19/19 Discharge Date: 01/20/19 Discharging Provider: Dr. Rainey Primary Care Provider: Maxine March Code Status: Attempt Resuscitation Condition at Discharge: Good Discharge Disposition: 01 Home, Self Care - DIAGNOSES Admission Diagnoses: 1. Acute recurrent small bowel obstruction secondary to adhesions from multiple abdominal surgeries 2. Acute recurrent abdominal pain secondary to #1 3. Hematuria with abnormal UA sec to colonizaton 4. Acute on chronic renal failure, progressed to CKD stage IV 5. SIRS with bandemia secondary to #1/#2 6. Electrolyte disturbance/hypokalemia 7. History of a renal transplant on immunosuppressant agent-tacrolimus 8. Accelerated hypertension 9. Hypothyroidism 10. Uncontrolled hyperlipidemia 11. Multifactorial anemia of chronic kidney disease with iron deficiency anemia 12. Secondary hyperparathyroidism due to chronic kidney disease 13. Diverticulosis 14. Uncontrolled insulin requiring type 2 diabetes mellitus with long-term current use of insulin Discharge Diagnoses with Status of Each Condition: 1. Acute recurrent small bowel obstruction secondary to adhesions from multiple abdominal surgeries; Resolved 2. Acute recurrent abdominal pain secondary to #1, Resolved 3. Hematuria with abnormal UA sec to colonizaton, Resolved 4. Acute on chronic renal failure, progressed to CKD stage IV, Progressive stable 5. SIRS with bandemia secondary to #1/#2, Stable 6. Chronic metabolic acidosis with associated Electrolyte disturbance/hypokale radha, Stable 7. History of a renal transplant/CKD Stage IV on immunosuppressant agent- tacrolimus, Progressive stable 8. Accelerated hypertension, Improved 9. Hypothyroidism, Stable 10. Uncontrolled hyperlipidemia, Stable 11. Multifactorial anemia of chronic kidney disease with iron deficiency an emia, Stable 12. Secondary hyperparathyroidism due to chronic kidney disease, Stable 13. Mild malnutrition, present on admission, Stable 14. Uncontrolled insulin requiring type 2 diabetes mellitus with long-term current use of insulin, Stable - HPI History of Present Illness: Patient is a 69-year-old Lebanese male With a complicated past medical history w hich includes renal transplant in 2008 with chronic kidney disease stage IV now being evaluated for dialysis by primary respiratory care program director in [place], transplanted kidney on immunosuppressants with tacrolimus, bladder cancer in 2017 status post bladder, prostatectomy and lymph node resection status post urostomy, insulin- dependent type 2 diabetes mellitus, hypertension, hyperlipidemia, hypothyroidism , who had been admitted in June 2018 for Partial small bowel obstruction. On this visitation patient is presenting with several hours of periumbilical abdominal discomfort associated with nausea and vomiting. Patient states that symptoms started earlier today after he ate breakfast. Patient describes feeling as though he has a sour stomach, but denies GERD-like symptoms. Patient denies diarrhea, fever, or other complaints. Patient also reports history of metastatic prostate cancer that required removal of his bladder and now has a stoma. Patient denies any complications with his stoma. Patient also reports history of small bowel obstruction and other bowel surgery. Patient has had appendectomy and cholecystectomy as well. No other improving or worsening factors noted. Patient presented similarly in symptomatology to admission back in June [address] Allan Mistry evaluating him and treating him with supportive and medical management back then. On this visitation patient's potassium was 3.2, CO2 of 13, creatinine of 4.3 with a baseline ranging between 2.3 and 3.7, glucose of 262 with an anion gap of 14, hemoglobin of 11.7 with a baseline ranging between 10.4-13.2, macrocytosis noted, WBC elevated at 18.6 with 3% bands, lipase and LFTs within normal limits, UA showed 300+ proteinuria with positive nitrites, large blood, many bacteria with negative ketones, RBCs too many to count, WBC 0-3 per high-power field. Previously on 01/07/2019 there was a concern for possible tacrolimus toxicity however level was low at 4.3. In addition patient on 06/11/2018 had a hemoglobin A1c of 9.8% with evidence of uncontrolled insulin requiring type 2 diabetes mellitus. Also uncontrolled hypokalemia with an LDL of 122 and total cholesterol 235 dated 10/23/2016. Patient with a history of noncompliance. CT abdomen pelvis on this visitation showed Small bowel obstruction, possibly due to adhesions. The dilated small bowel loops in the central mesentery are edematous. No pneumatosis or free air. Small to moderate ascites present. Dr. Morales was consulted however she recommended supportive and conservative medical management for now and she would unlikely perform surgery or lysis of adhesions due to patient's complicated past medical history with multiple abdominal surgeries. Patient will be having an NG tube placed to intermittent suction, bowel rest, IV fluids, and pain control to be initiated. - CONSULTS | PROCEDURES Consultations: Dr. Morales, General surgeon Procedures: NG tube placement with subsequent removal - HOSPITAL COURSE Hospital Course: Mr. Justice Ferreira Is a pleasant 69-year-old Lebanese man with a complicated past surgical history of multiple abdominal surgeries which would include prostatectomy, urostomy placement, renal transplant, bladder resection, appendectomy and cholecystectomy with uncontrolled insulin requiring type 2 twan betes mellitus, hypertension, and worsening chronic kidney disease stage IV for which she is being evaluated for dialysis who presented with a recurrence to his small bowel obstruction with associated SIRS. Patient had been on Prograf and prednisone as well as home BP meds and insulin for his diabetes. Patient presented with acute renal insufficiency superimposed on his chronic kidney disease stage IV along with hypokalemia and with nausea vomiting with severe abdominal pain requiring inpatient admission evaluation management treatment. Dr. Morales from surgery service had reviewed the CT abdomen pelvis and was recommending medical management with conservative supportive care. In addition no expiratory laparotomy with lysis of adhesions were to be undertaken in this very complicated surgical case as she recommended that this would likely need transfer to higher level care if patient would not get better with medical management. Patient subsequently received an NG tube placement and was placed on clears and advance to full liquid as patient had resolution to his small bowel obstruction confirmed by abdominal x-ray on 01/20. In addition patient had all medications converted from NG tube and once this was removed oral medications patient tolerated well. Patient was given a carb controlled renal diet which he tolerated well prior to discharge. In addition patient had a urine culture which grew out more than 100 K polymicrobial likely colonization/contamination which would not explain patient's SIRS in the setting of no growth on blood cultures. IV antibiotics were therefore deferred. Lactic acid was only 1.5. Hemoglobin A1c was 9.6% with evidence of uncontrolled insulin requiring type 2 diabetes mellitus for which patient was referred to the [facility] clinic for diabetic education. Patient's potassium was replaced with a repeat potassium and magnesium showing acceptable levels. Patient did have hypertensive excursions which were controlled with his BP meds of Clonidine, Coreg, Norvasc, and Lasix with IV hydralazine PRN for hypertensive excursions. Patient has been instructed on medical compliance and glycemic control and to return to PCP in 1 or 2 weeks. Patient also is being evaluated for hemodialysis as patient has failing renal transplant and on chronic Prograf/prednisone which will be continued until patient is seen by respiratory care program director and will likely receive hemodialysis. - ALLERGIES Allergies/Adverse Reactions: Allergies Allergy/AdvReac Type Severity Reaction Status Date / Time No Known Drug Allergies Allergy Verified 01/19/19 14:37 - MEDICATIONS Home Medications: Ambulatory Orders Medication Instructions Recorded Confirmed Aspirin Chewable [St Americo 81 mg PO DAILY 12/03/13 01/20/19 Aspirin] Carvedilol [Coreg] 50 mg PO BID 12/03/13 01/20/19 Cholecalciferol (Vitamin D3) 2,000 unit PO DAILY 12/03/13 01/20/19 [Vitamin D3] Cinacalcet HCl [Sensipar] 30 mg PO Q48H 12/03/13 01/20/19 Krill Oil 500 mg PO DAILY 12/03/13 01/20/19 Levothyroxine Sodium [Synthroid] 25 mcg PO DAILY 12/03/13 01/20/19 Magnesium Oxide [Magnesium] 400 mg PO DAILY 12/03/13 01/20/19 Omeprazole [PriLOSEC] 20 mg PO DAILY 12/03/13 01/20/19 Potassium Chloride 20 meq PO BID 12/03/13 01/20/19 Prenat Vit Comb.10/Iron/FA/Dha 1 tab PO DAILY 12/03/13 01/20/19 [Vitafol-Ob+Dha Combo Pack] Rosuvastatin Calcium [Crestor] 20 mg PO DAILY 12/03/13 01/20/19 amLODIPine [Norvasc] 10 mg PO DAILY 12/03/13 01/20/19 cloNIDine HCl [Clonidine HCl] 0.2 mg PO TID 12/03/13 01/20/19 predniSONE [Deltasone] 5 mg PO DAILY 12/03/13 01/20/19 Insulin Aspart [Novolog] 7 - 12 units SUBQ AC 04/15/14 01/20/19 Insulin Glargine,Hum.rec.anlog 20 units SUBQ DAILY 04/15/14 01/20/19 [Lantus] Docusate Calcium 240 mg PO DAILY 06/11/18 01/20/19 Furosemide 20 mg PO DAILY 06/11/18 01/20/19 Insulin Admin. Supplies [Inpen 1 each SQ QID #120 insuln.pen 06/11/18 (For Novolog)] Tacrolimus [Prograf] 1 mg PO BID 06/11/18 01/20/19 Ondansetron Odt [Zofran Odt] 4 mg PO Q4HR PRN #40 tablet 01/20/19 Sodium Bicarbonate 650 mg PO TID 01/20/19 01/20/19 - PHYSICAL EXAM AT DISCHARGE General Appearance: positive: No acute distress, Alert Eyes Bilateral: positive: Normal inspection, PERRL, EOMI ENT: positive: ENT inspection nml, Pharynx nml, No signs of dehydration Neck: positive: Nml inspection, Thyroid nml, No JVD, Trachea midline Respiratory: positive: Chest non-tender, No respiratory distress, Breath sounds nml Cardiovascular: positive: Regular rate & rhythm, No murmur, No gallop Peripheral Pulses: positive: 2+ Abdomen: positive: Non-tender, No organomegaly, Nml bowel sounds, No distention, Other (Positive bowel sounds all quadrants. Urostomy bag clean dry and intact) Back: positive: Nml inspection Skin: positive: Color nml, No rash, Warm Extremities: positive: Non-tender, Full ROM, Nml appearance Neurologic/Psychiatric: positive: Oriented x3, CN's nml (2-12) - LABS Result Diagrams: 01/20/19 08:03 01/20/19 15:13 - DIAGNOSTIC IMAGING Diagnostic Imaging Results: Final report reviewed - SEPSIS Current Stage of Sepsis: Ruled out - FOLLOW UP Follow Up: PCP to follow-up in 1 to 2 weeks. Follow-up with primary respiratory care program director in 2 to 3 weeks. - TIME SPENT Time Spent in Discharge (Minutes): 35"
[2019-01-20 15:29] LABS: MAGNESIUM 1.6 mg/dL (1.7-2.8)
[2019-01-20 18:01] VITALS: BP 170/60
[2019-01-20] MEDS ORDERED: TACROLIMUS 1 MG PO SCH (21:00)
[2019-01-20] MEDS ORDERED: CARVEDILOL 50 MG PO SCH (21:00)
[2019-01-20] MEDS ORDERED: SODIUM BICARBONATE 650 MG TABLET PO SCH (22:00)
[2019-01-21] MEDS ORDERED: amLODIPine 5 MG TABLET PO SCH (09:00)
== END 2019-01-20 18:20 | disposition home or self-care (01) ==
LOC: ED 14:28 → MS2 17:53
PROVIDERS: ADMIT Family Medicine; ATTEND Family Medicine
DX: K56.50 Intestinal adhesions [bands], unspecified as to partial versus complete obstruction (principal); R65.10 Systemic inflammatory response syndrome (SIRS) of non-infectious origin without acute organ dysfunction; T86.12 Kidney transplant failure; Y83.0 Surgical operation with transplant of whole organ as the cause of abnormal reaction of the patient, or of later complication, without mention of misadventure at the time of the procedure; E11.22 Type 2 diabetes mellitus with diabetic chronic kidney disease; I12.0 Hypertensive chronic kidney disease with stage 5 chronic kidney disease or end stage renal disease; N17.9 Acute kidney failure, unspecified; N18.6 End stage renal disease; K21.9 Gastro-esophageal reflux disease without esophagitis; E03.9 Hypothyroidism, unspecified; E78.5 Hyperlipidemia, unspecified; R31.21 Asymptomatic microscopic hematuria; E87.6 Hypokalemia; E87.2 Acidosis; D63.1 Anemia in chronic kidney disease; D50.9 Iron deficiency anemia, unspecified; N25.81 Secondary hyperparathyroidism of renal origin; E44.1 Mild protein-calorie malnutrition; R18.8 Other ascites; K57.30 Diverticulosis of large intestine without perforation or abscess without bleeding; Z68.1 Body mass index [BMI] 19.9 or less, adult; Z85.46 Personal history of malignant neoplasm of prostate; Z90.6 Acquired absence of other parts of urinary tract; Z90.49 Acquired absence of other specified parts of digestive tract; Z90.79 Acquired absence of other genital organ(s); Z79.4 Long term (current) use of insulin; Z22.39 Carrier of other specified bacterial diseases; Z79.899 Other long term (current) drug therapy; Z85.51 Personal history of malignant neoplasm of bladder; Z93.6 Other artificial openings of urinary tract status; Z91.19 Patient's noncompliance with other medical treatment and regimen; Z79.52 Long term (current) use of systemic steroids
CPT/HCPCS: 36415; 74176; 80053; 81001; 82009; 83036; 83605; 83690; 83735; 84443; 85025; 87086; 96361; 96375; 99283; 99284; A9270; 71045; 74018; 81003; 84132; 87040; 96365; 96366; 96374; 96376

== ENCOUNTER 2019-02-05 10:41 | Outpatient (CLI) | payer MEDICARE, OTHER ==
[2019-02-05 11:02] LABS: BASOPHILS % (AUTO) 0.4 %; EOSINOPHILS # (AUTO) 0.1 10^3/uL (0.0-0.7); EOSINOPHILS % (AUTO) 0.9 %; HGB - HEMOGLOBIN 9.3 g/dL (14.0-18.0); LYMPHOCYTES # (AUTO) 1.4 10^3/uL (1.5-3.5); LYMPHOCYTES % (AUTO) 20.1 %; MEAN CORPUSCULAR HEMOGLOBIN 30.8 pg (27.0-31.0); MEAN CORPUSCULAR HGB CONC 32.7 g/dL (32.0-36.0); MEAN PLATELET VOLUME 9.6 fL (7.4-11.4); MONOCYTES # (AUTO) 0.6 10^3/uL (0.0-1.0); MONOCYTES % (AUTO) 8.5 %; NEUTROPHILS # (AUTO) 4.8 10^3/uL (1.5-6.6); NEUTROPHILS % (AUTO) 69.5 %; PLT - PLATELET COUNT 317 10^3/uL (130-450); RED BLOOD COUNT 3.02 10^6/uL (4.70-6.10); RED CELL DISTRIBUTION WIDTH 13.9 % (12.0-15.0); WHITE BLOOD COUNT 6.9 x10^3/uL (4.8-10.8)
[2019-02-05 11:48] LABS: ALBUMIN 2.9 g/dL (3.2-5.5); ALBUMIN/GLOBULIN RATIO 0.8 (1.0-2.2); BILIRUBIN,TOTAL 0.5 mg/dL (0.2-1.0); CALCIUM 8.5 mg/dL (8.5-10.3); CREATININE 3.8 mg/dL (0.6-1.2); PHOSPHORUS 5.2 mg/dL (2.5-4.6); TOTAL PROTEIN 6.7 g/dL (6.7-8.2)
== END 2019-02-05 10:42 | disposition home or self-care (01) ==
LOC: LAB 10:41
PROVIDERS: ATTEND Specialist
DX: N18.5 Chronic kidney disease, stage 5 (principal)
CPT/HCPCS: 36415; 80053; 84100; 85025

== ENCOUNTER 2019-02-26 07:44 | Outpatient (CLI) | payer MEDICARE, OTHER ==
[2019-02-26 08:01] LABS: BASOPHILS % (AUTO) 0.4 %; EOSINOPHILS # (AUTO) 0.1 10^3/uL (0.0-0.7); EOSINOPHILS % (AUTO) 0.9 %; HGB - HEMOGLOBIN 9.5 g/dL (14.0-18.0); LYMPHOCYTES # (AUTO) 1.9 10^3/uL (1.5-3.5); LYMPHOCYTES % (AUTO) 23.1 %; MEAN CORPUSCULAR HEMOGLOBIN 30.8 pg (27.0-31.0); MEAN CORPUSCULAR HGB CONC 32.1 g/dL (32.0-36.0); MEAN CORPUSCULAR VOLUME 96.1 fL (80.0-94.0); MEAN PLATELET VOLUME 10.2 fL (7.4-11.4); MONOCYTES # (AUTO) 0.6 10^3/uL (0.0-1.0); MONOCYTES % (AUTO) 7.9 %; NEUTROPHILS # (AUTO) 5.4 10^3/uL (1.5-6.6); NEUTROPHILS % (AUTO) 67.3 %; PLT - PLATELET COUNT 236 10^3/uL (130-450); RED BLOOD COUNT 3.08 10^6/uL (4.70-6.10); RED CELL DISTRIBUTION WIDTH 13.7 % (12.0-15.0); WHITE BLOOD COUNT 8.1 x10^3/uL (4.8-10.8)
[2019-02-26 08:10] LABS: CREATININE 3.9 mg/dL (0.6-1.2)
[2019-02-26 08:11] LABS: ALBUMIN/GLOBULIN RATIO 0.8 (1.0-2.2); BILIRUBIN,TOTAL 0.6 mg/dL (0.2-1.0); CALCIUM 8.3 mg/dL (8.5-10.3); PHOSPHORUS 5.1 mg/dL (2.5-4.6); TOTAL PROTEIN 6.6 g/dL (6.7-8.2)
== END 2019-02-26 07:45 | disposition home or self-care (01) ==
LOC: LAB 07:44
PROVIDERS: ATTEND Specialist
DX: N18.5 Chronic kidney disease, stage 5 (principal)
CPT/HCPCS: 36415; 80053; 84100; 85025

== ENCOUNTER 2019-04-13 14:03 | Outpatient (CLI) | payer MEDICARE, OTHER | END 2019-04-13 14:04 | disposition critical access hospital (66) | LOC: EMS 14:03 | PROVIDERS: ATTEND Surgery | DX: M25.512 Pain in left shoulder (principal) | CPT/HCPCS: A0425; A0429 ==

== ENCOUNTER 2019-04-13 14:19 | Emergency (ER) | payer MEDICARE, OTHER ==
[2019-04-13] MEDS ORDERED: oxyCODONE 5 MG TABLET PO STA (14:25)
--- NOTE | 2019-04-13 14:28 | ED Physician Documentation ---
PD HPI UPPER EXT INJURY - Stated complaint Stated Complaint: L SHOULDER PX - History obtained from History obtained from: Patient, EMS - History of Present Illness Location: Left (69-year-old gentleman with history of renal transplant in 2008, history of bladder cancer status post cystectomy/prostatectomy/lymph node dissection, with ileostomy in place he developed left shoulder pain that is severe since last night. Its much worse when he lifts his arm or moves his arm in any way. It is not too bad at rest. It started while he was pushing himself up in a recliner chair. He does not have any history of shoulder issues on that side. He denies fevers or chills. There is no shortness of breath. No cough. 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 - Present Medications Home Medications: Ambulatory Orders Medication Instructions Recorded Confirmed Aspirin Chewable [[place]o 81 mg PO DAILY 12/03/13 01/20/19 Aspirin] Carvedilol [Coreg] 50 mg PO BID 12/03/13 01/20/19 Cholecalciferol (Vitamin D3) 2,000 unit PO DAILY 12/03/13 01/20/19 [Vitamin D3] Cinacalcet HCl [Sensipar] 30 mg PO Q48H 12/03/13 01/20/19 Krill Oil 500 mg PO DAILY 12/03/13 01/20/19 Levothyroxine Sodium [Synthroid] 25 mcg PO DAILY 12/03/13 01/20/19 Magnesium Oxide [Magnesium] 400 mg PO DAILY 12/03/13 01/20/19 Omeprazole [PriLOSEC] 20 mg PO DAILY 12/03/13 01/20/19 Potassium Chloride 20 meq PO BID 12/03/13 01/20/19 Prenat Vit Comb.10/Iron/FA/Dha 1 tab PO DAILY 12/03/13 01/20/19 [Vitafol-Ob+Dha Combo Pack] Rosuvastatin Calcium [Crestor] 20 mg PO DAILY 12/03/13 01/20/19 amLODIPine [Norvasc] 10 mg PO DAILY 12/03/13 01/20/19 cloNIDine HCl [Clonidine HCl] 0.2 mg PO TID 12/03/13 01/20/19 predniSONE [Deltasone] 5 mg PO DAILY 12/03/13 01/20/19 Insulin Aspart [Novolog] 7 - 12 units SUBQ AC 04/15/14 01/20/19 Insulin Glargine,Hum.rec.anlog 20 units SUBQ DAILY 04/15/14 01/20/19 [Lantus] Docusate Calcium 240 mg PO DAILY 06/11/18 01/20/19 Furosemide 20 mg PO DAILY 06/11/18 01/20/19 Insulin Admin. Supplies [Inpen 1 each SQ QID #120 insuln.pen 06/11/18 (For Novolog)] Tacrolimus [Prograf] 1 mg PO BID 06/11/18 01/20/19 Ondansetron Odt [Zofran Odt] 4 mg PO Q4HR PRN #40 tablet 01/20/19 Sodium Bicarbonate 650 mg PO TID 01/20/19 01/20/19 Oxycodone HCl/Acetaminophen 1 - 2 each PO Q6H PRN #14 tablet 04/13/19 [Percocet 5-325 mg Tablet] - Allergies Allergies/Adverse Reactions: Allergies Allergy/AdvReac Type Severity Reaction Status Date / Time No Known Drug Allergies Allergy Verified 04/13/19 14:25 - Social History Does the pt smoke?: No Smoking Status: Former smoker Does the pt drink ETOH?: No Does the pt have substance abuse?: No - Immunizations Immunizations are current?: Yes - POLST Patient has POLST: No POLST Status: Full Code PD ED PE NORMAL - Vitals Vital signs reviewed: Yes - General General: Alert and oriented X 3, Other (He is uncomfortable and winces significantly with any motion of his shoulder on the left whether to be passive or active.) - HEENT HEENT: PERRL, EOMI - Neck Neck: Supple, no meningeal sign, No bony TTP - Extremities Extremities: Other (Left shoulder TTP over glenohumeral joint without deformity. Unable to range more than a tiny bit without pain. 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 Old dialysis shunt left arm, NTTP. No redness/warmth of shoulder.) - Neuro Neuro: Alert and oriented X 3, Normal speech - Psych Psych: Normal mood, Normal affect Results - Vitals Vitals: Vital Signs - 24 hr 04/13/19 04/13/19 14:25 15:09 Temperature 36.6 C 36.8 C Heart Rate 85 78 Respiratory 16 14 Rate Blood Pressure 152/92 H 154/72 H O2 Saturation 99 100 Oxygen O2 Source Room air - EKG (time done) 1424 Rate: Rate (enter#) (83) Rhythm: NSR (with PVCs) [place]: Normal Intervals: Normal MD QRS: LVH Ischemia: Non specific changes Computer interpretation: Disagree with computer (SWAPNA is not short) - Labs Labs: Laboratory Tests 04/13/19 04/13/19 04/13/19 14:50 14:50 14:50 WBC 15.0 H RBC 2.75 L Hgb 8.2 L Hct 25.2 L MCV 91.6 MCH 29.8 MCHC 32.5 RDW 14.4 Plt Count 269 MPV 9.3 Neut # (Auto) 12.1 H Lymph # (Auto) 1.3 L [place] # (Auto) 1.3 H Eos # (Auto) 0.2 Baso # (Auto) 0.1 Absolute Nucleated RBC 0.00 Nucleated RBC % 0.0 Sodium 139 Potassium 3.3 L Chloride 110 Carbon Dioxide 14 L Anion Gap 15.0 H BUN 102 H* Creatinine 5.9 H Estimated GFR (MDRD) 9 L Glucose 213 H Calcium 6.9 L Troponin I High Sens 48.8 H* PD MEDICAL DECISION MAKING - ED course ED course: 69-year-old gentleman presents with relatively atraumatic left shoulder pain. I cannot really range him at all. There is no fever, but he is immune compromised with a history of renal transplant and diabetes. There is no warmth or redness, but with a white count especially, the concern for septic joint is there. His x-ray is negative. I spoke with Dr. Henderson, the on-call orthopedic surgeon at 3:25 PM who will make his way in and attempt an aspiration. Of note, his transplanted kidney is failing, he is aware of this and his skin lifter bacon is already talking about restarting him on dialysis. The elevated troponin can be explained with the renal failure, I do not think this represents a primary coronary insult especially given the severe limited range of motion with his shoulder. I do not think that is atypical angina. He was seen and evaluated personally by the on-call orthopedic surgeon who did not feel that this was consistent with a septic joint. Probably a muscle tear. Recommended short-term sling and gentle range of motion exercises pending primary care follow-up for physical therapy. Departure - Departure Disposition: 01 Home, Self Care Clinical Impression: Unspecified rotator cuff tear or rupture of left shoulder, not specified as traumatic Qualifiers: Rotator cuff tear extent: unspecified tear extent Rotator cuff tear trauma status: traumatic Encounter type: initial encounter Qualified Code(s): S46.012A - Strain of muscle(s) and tendon(s) of the rotator cuff of left shoulder, initial encounter Condition: Good Record reviewed to determine appropriate education?: Yes Instructions: ED Sprain AC Joint Prescriptions: Oxycodone HCl/Acetaminophen [Percocet 5-325 mg Tablet] 1 - 2 each PO Q6H PRN #14 tablet PRN Reason: pain Comments: The orthopedic surgeon here felt that she had a muscle tear in your left shoulder. He recommends he follow-up with your primary care physician for a referral for physical therapy. Do not wear the sling for more than a couple of days, but you can wear it for the next day or 2 for comfort. Also as discussed, your kidney function is declining. I suspect Dr. Velásquez will need to arrange to restart dialysis in the near future. Return for new worsening symptoms. Your blood pressure was elevated today on check into the emergency department. This does not mean that you have hypertension, it is a common phenomenon to come to the emergency department and have elevated blood pressure. I recommend that you see your primary care physician within the week to have it rechecked when you are feeling better.
[2019-04-13 14:55] LABS: BASOPHILS # (AUTO) 0.1 10^3/uL (0.0-0.1); BASOPHILS % (AUTO) 0.5 %; EOSINOPHILS # (AUTO) 0.2 10^3/uL (0.0-0.7); EOSINOPHILS % (AUTO) 1.2 %; HGB - HEMOGLOBIN 8.2 g/dL (14.0-18.0); LYMPHOCYTES # (AUTO) 1.3 10^3/uL (1.5-3.5); LYMPHOCYTES % (AUTO) 8.4 %; MEAN CORPUSCULAR HEMOGLOBIN 29.8 pg (27.0-31.0); MEAN CORPUSCULAR HGB CONC 32.5 g/dL (32.0-36.0); MEAN CORPUSCULAR VOLUME 91.6 fL (80.0-94.0); MEAN PLATELET VOLUME 9.3 fL (7.4-11.4); MONOCYTES # (AUTO) 1.3 10^3/uL (0.0-1.0); MONOCYTES % (AUTO) 8.5 %; NEUTROPHILS # (AUTO) 12.1 10^3/uL (1.5-6.6); NEUTROPHILS % (AUTO) 80.7 %; PLT - PLATELET COUNT 269 10^3/uL (130-450); RED BLOOD COUNT 2.75 10^6/uL (4.70-6.10); RED CELL DISTRIBUTION WIDTH 14.4 % (12.0-15.0)
--- NOTE | 2019-04-13 15:17 | XRAY Report ---
Reason: shoulder pain Procedure Date: 04/13/2019 Accession Number: [id number] / [id number] Procedure: XR - Shoulder 3 View LT CPT Code: FULL RESULT: EXAM: LEFT SHOULDER RADIOGRAPHY EXAM DATE: 04/13/2019 02:46 PM. CLINICAL HISTORY: Shoulder pain. COMPARISON: None. TECHNIQUE: 3 views. FINDINGS: Bones: Normal. No fracture or bone lesion. Joints: The glenohumeral and acromioclavicular joints are normal. Soft tissues: The visualized hemithorax is unremarkable. No soft tissue swelling. IMPRESSION: Normal shoulder radiography. RADIA
[2019-04-13 15:20] LABS: CALCIUM 6.9 mg/dL (8.5-10.3); CREATININE 5.9 mg/dL (0.6-1.2)
[2019-04-13] MEDS ORDERED: LIDOCAINE 1%-EPI 1:100000 20 ML MDV SUBQ STA (15:27)
--- NOTE | 2019-04-13 16:45 | PROVIDER PROGRESS NOTE ---
Subjective - Prog Note Date Prog Note Date: 04/13/19 Prog Note Time: 16:42 - Subjective Subjective: Left non dominant shoulder pain after lifting himself out of his recliner last PM. No history of prior infections since his renal transplant 10 years ago. Objective - Vital Signs/Intake & Output Vital Signs: Vital Signs x48h Temp Pulse Resp BP Pulse Ox 04/13/19 15:09 36.8 C 78 14 154/72 H 100 04/13/19 14:25 36.6 C 85 16 152/92 H 99 - Lab Results Fish Bones: 04/13/19 14:50 04/13/19 14:50 Other Labs: Lab Results x24hrs 04/13/19 04/13/19 04/13/19 Range/Units 14:50 14:50 14:50 WBC 15.0 H (4.8-10.8) x10^3/uL RBC 2.75 L (4.70-6.10) 10^6/uL Hgb 8.2 L (14.0-18.0) g/dL Hct 25.2 L (42.0-52.0) % MCV 91.6 (80.0-94.0) fL MCH 29.8 (27.0-31.0) pg MCHC 32.5 (32.0-36.0) g/dL RDW 14.4 (12.0-15.0) % Plt Count 269 (130-450) 10^3/uL MPV 9.3 (7.4-11.4) fL Neut # (Auto) 12.1 H (1.5-6.6) 10^3/uL Lymph # (Auto) 1.3 L (1.5-3.5) 10^3/uL [place] # (Auto) 1.3 H (0.0-1.0) 10^3/uL Eos # (Auto) 0.2 (0.0-0.7) 10^3/uL Baso # (Auto) 0.1 (0.0-0.1) 10^3/uL Absolute Nucleated RBC 0.00 x10^3/uL Nucleated RBC % 0.0 /100WBC Sodium 139 (135-145) mmol/L Potassium 3.3 L (3.5-5.0) mmol/L Chloride 110 (101-111) mmol/L Carbon Dioxide 14 L (21-32) mmol/L Anion Gap 15.0 H (6-13) BUN 102 H* (6-20) mg/dL Creatinine 5.9 H (0.6-1.2) mg/dL Estimated GFR (MDRD) 9 L (>89) Glucose 213 H (70-100) mg/dL Calcium 6.9 L (8.5-10.3) mg/dL Troponin I High Sens 48.8 H* (2.3-19.7) pg/mL - Other Results/Comments Other Results/Comments: EXAM: Left shoulder - no significant swelling or redness; no focal tenderness. PROM: 60 degrees of rotation; FF 50-60 degrees without pain. N/V ok distally. XR: No fracture/dislocation US: no significant fluid collection around shoulder (no effusion or bursal sac) No large rotator cuff tear. Assessment/Plan - Problem List (1) Left shoulder pain Impression: Likely mild musculasketetal strain about shoulder. Doubt spetic shoulder PLAN: Sling and mild analgesics as needed. Follow up with PCP with persistent shoulder pain for reevaluation. FULL NOTE dictated Qualifiers: Chronicity: acute Qualified Code(s): M25.512 - Pain in left shoulder
--- NOTE | 2019-04-13 17:00 | CONSULTATION NOTE ---
DATE OF SERVICE: 04/13/2019 Physician: Kike Henderson MD REFERRING PHYSICIAN: Arvin Adair MD, emergency room department. CHIEF COMPLAINT: "My left shoulder hurts." HISTORY OF PRESENT ILLNESS: The patient is a 69-year-old [place] male who has had a renal transplant in the past about 10 years ago and is likely to require hemodialysis soon, as his kidney is not working as effectively. He presents to the emergency room today; however, with a new complaint. He denies recurrent history of infection since his kidney transplant and was in his usual state of health until late last night. As he was changing his position from a recliner, he noted an acute onset of sharp anterior superior left shoulder pain. He is right hand dominant. He denies any radicular symptoms. No neck pain noted. The patient's symptoms; however, have continued to persist since last night, which prompted his visit here in the emergency room. Workup here in the emergency room has included a white count, which was elevated at 15,000. He was noted to be afebrile. X-rays were benign. Because of the possibility of the patient having a septic joint because of his persistent pain and difficulty with active range of motion, orthopedics was consulted to determine if aspiration of his shoulder was indicated. Radiopaque dye is not indicated in this patient in view of his compromised renal function. PHYSICAL EXAMINATION: Today, the patient's left shoulder shows no increased swelling, fluctuance or any significant effusion on clinical inspection. The patient today had good passive range of motion of the shoulder, having about 50- 60 degrees of rotation of the shoulder without any obvious pain. Able to forward flex his shoulder about 40 degrees before some mild discomfort in the shoulder. Neurovascular appears to be intact distally in the left upper extremity. Again, palpation around the shoulder showed no obvious collection of fluid or fluctuance. No focal tenderness noted on palpation around the shoulder either. IMAGING: X-rays were reviewed and showed no acute fractures or dislocations around the shoulder. Ultrasound examination of the shoulder (performed by Ofe MCDANIELS CRNA of the anesthesia department) showed no evidence of rotator cuff disruption nor any significant collection of either bursal or joint effusion present about the left shoulder. ASSESSMENT 1. Left nondominant shoulder pain - likely musculoskeletal in origin based on his exam and his history. 2. History of a kidney transplant. 3. History of diabetes. 4. Declining renal function, likely will require hemodialysis. PLAN: At this point, I doubt that the patient has a septic left shoulder based on history and exam, as well as our ultrasound study of the joint. I did discuss with the patient the possibility of putting a needle in the shoulder joint, but in view of our additional information, I doubt that this would be of any value and would be quite difficult putting it in the shoulder without the assistance of a radiopaque dye. The patient agrees. We treat the patient then for acute musculoskeletal injury to the shoulder, which likely occurred as he was rising from a recliner last evening. We tried mild analgesics and a sling to the shoulder to rest the joint and advance his activities in the next couple of days as indicated. Persistent symptoms would have him followup with his primary care physician for reevaluation of the shoulder is indicated. TD: 04/13/2019 16:43 MTDAlma
[2019-04-13 17:10] VITALS: BP 165/72
== END 2019-04-13 17:18 | disposition home or self-care (01) ==
LOC: EDUNIT# → ED 14:19
DX: S46.012A Strain of muscle(s) and tendon(s) of the rotator cuff of left shoulder, initial encounter (principal); X50.9XXA Other and unspecified overexertion or strenuous movements or postures, initial encounter; Y93.89 Activity, other specified; E11.22 Type 2 diabetes mellitus with diabetic chronic kidney disease; I12.9 Hypertensive chronic kidney disease with stage 1 through stage 4 chronic kidney disease, or unspecified chronic kidney disease; N18.9 Chronic kidney disease, unspecified; Z94.0 Kidney transplant status; Z79.4 Long term (current) use of insulin
CPT/HCPCS: 36415; 73030; 80048; 84484; 85025; 93005; 99284; A9270

== ENCOUNTER 2019-04-22 08:26 | Outpatient (CLI) | payer MEDICARE, OTHER ==
[2019-04-22 08:59] LABS: BASOPHILS % (AUTO) 0.3 %; EOSINOPHILS % (AUTO) 0.2 %; LYMPHOCYTES # (AUTO) 1.4 10^3/uL (1.5-3.5); LYMPHOCYTES % (AUTO) 12.9 %; MEAN CORPUSCULAR HEMOGLOBIN 28.7 pg (27.0-31.0); MEAN CORPUSCULAR HGB CONC 31.3 g/dL (32.0-36.0); MEAN CORPUSCULAR VOLUME 91.8 fL (80.0-94.0); MEAN PLATELET VOLUME 9.3 fL (7.4-11.4); MONOCYTES # (AUTO) 0.7 10^3/uL (0.0-1.0); MONOCYTES % (AUTO) 6.8 %; NEUTROPHILS # (AUTO) 8.5 10^3/uL (1.5-6.6); NEUTROPHILS % (AUTO) 79.2 %; PLT - PLATELET COUNT 274 10^3/uL (130-450); RED BLOOD COUNT 2.79 10^6/uL (4.70-6.10); RED CELL DISTRIBUTION WIDTH 14.7 % (12.0-15.0); WHITE BLOOD COUNT 10.7 x10^3/uL (4.8-10.8)
[2019-04-22 09:45] LABS: ALBUMIN 2.4 g/dL (3.2-5.5); ALBUMIN/GLOBULIN RATIO 0.6 (1.0-2.2); BILIRUBIN,TOTAL 0.6 mg/dL (0.2-1.0); CALCIUM 7.1 mg/dL (8.5-10.3); CREATININE 6.3 mg/dL (0.6-1.2); PHOSPHORUS 7.7 mg/dL (2.5-4.6); TOTAL PROTEIN 6.7 g/dL (6.7-8.2)
== END 2019-04-22 08:27 | disposition home or self-care (01) ==
LOC: LAB 08:26
PROVIDERS: ATTEND Specialist
DX: N18.5 Chronic kidney disease, stage 5 (principal)
CPT/HCPCS: 36415; 80053; 84100; 85025

== ENCOUNTER 2019-05-07 10:14 | Outpatient (CLI) | payer MEDICARE, OTHER ==
[2019-05-08 11:12] LABS: HEPATITIS A IGM NON-REACTIVE (NON-REACTIVE); HEPATITIS B SURFACE ANTIGEN NON-REACTIVE (NON-REACTIVE); HEPATITIS C ANTIBODY NON-REACTIVE (NON-REACTIVE)
== END 2019-05-07 10:15 | disposition home or self-care (01) ==
LOC: LAB 10:14
PROVIDERS: ATTEND Specialist
DX: N18.6 End stage renal disease (principal); B19.9 Unspecified viral hepatitis without hepatic coma
CPT/HCPCS: 36415; 80074

== ENCOUNTER 2019-05-28 11:08 | Emergency (ER) | payer MEDICARE, OTHER ==
--- NOTE | 2019-05-28 11:22 | ED Physician Documentation ---
History of Present Illness - Stated complaint Stated Complaint: WEAKNESS - Chief complaint Chief Complaint: General - History obtained from History obtained from: Patient - History of Present Illness Timing: Today Pain level max: 0 Pain level now: 0 - Additonal information Additional information: Patient was at dialysis today and noted that his hemoglobin was 6. His architecture intern called and requested that we transfuse him 1 unit of blood here. He will then follow-up with nephrology for EPO injections. He does not need dialysis after the unit. Patient states that he does feel tired and weak. No recent illnesses or fevers. No vomiting or diarrhea. No abdominal pain. No chest pain. Nothing makes it better or worse. 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 - Present Medications Home Medications: Ambulatory Orders Medication Instructions Recorded Confirmed Aspirin Chewable [St [place]o 81 mg PO DAILY 12/03/13 01/20/19 Aspirin] Carvedilol [Coreg] 50 mg PO BID 12/03/13 01/20/19 Cholecalciferol (Vitamin D3) 2,000 unit PO DAILY 12/03/13 01/20/19 [Vitamin D3] Cinacalcet HCl [Sensipar] 30 mg PO Q48H 12/03/13 01/20/19 Krill Oil 500 mg PO DAILY 12/03/13 01/20/19 Levothyroxine Sodium [Synthroid] 25 mcg PO DAILY 12/03/13 01/20/19 Magnesium Oxide [Magnesium] 400 mg PO DAILY 12/03/13 01/20/19 Omeprazole [PriLOSEC] 20 mg PO DAILY 12/03/13 01/20/19 Potassium Chloride 20 meq PO BID 12/03/13 01/20/19 Prenat Vit Comb.10/Iron/FA/Dha 1 tab PO DAILY 12/03/13 01/20/19 [Vitafol-Ob+Dha Combo Pack] Rosuvastatin Calcium [Crestor] 20 mg PO DAILY 12/03/13 01/20/19 amLODIPine [Norvasc] 10 mg PO DAILY 12/03/13 01/20/19 cloNIDine HCl [Clonidine HCl] 0.2 mg PO TID 12/03/13 01/20/19 predniSONE [Deltasone] 5 mg PO DAILY 12/03/13 01/20/19 Insulin Aspart [Novolog] 7 - 12 units SUBQ AC 04/15/14 01/20/19 Insulin Glargine,Hum.rec.anlog 20 units SUBQ DAILY 04/15/14 01/20/19 [Lantus] Docusate Calcium 240 mg PO DAILY 06/11/18 01/20/19 Furosemide 20 mg PO DAILY 06/11/18 01/20/19 Insulin Admin. Supplies [Inpen 1 each SQ QID #120 insuln.pen 06/11/18 (For Novolog)] Tacrolimus [Prograf] 1 mg PO BID 06/11/18 01/20/19 Ondansetron Odt [Zofran Odt] 4 mg PO Q4HR PRN #40 tablet 01/20/19 Sodium Bicarbonate 650 mg PO TID 01/20/19 01/20/19 Oxycodone HCl/Acetaminophen 1 - 2 each PO Q6H PRN #14 tablet 04/13/19 [Percocet 5-325 mg Tablet] - Allergies Allergies/Adverse Reactions: Allergies Allergy/AdvReac Type Severity Reaction Status Date / Time No Known Drug Allergies Allergy Verified 05/28/19 11:16 - Social History Does the pt smoke?: No Smoking Status: Former smoker Does the pt drink ETOH?: No Does the pt have substance abuse?: No - Immunizations Immunizations are current?: Yes - POLST Patient has POLST: No POLST Status: Full Code PD ED PE NORMAL - Vitals Vital signs reviewed: Yes - General General: Alert and oriented X 3, No acute distress - HEENT HEENT: Moist mucous membranes - Neck Neck: Supple, no meningeal sign - Cardiac Cardiac: RRR - Respiratory Respiratory: No respiratory distress, Clear bilaterally - Abdomen Abdomen: Soft, Non tender, Non distended - Derm Derm: Warm and dry - Extremities Extremities: No calf tenderness / cord - Neuro Neuro: Alert and oriented X 3 Results - Vitals Vitals: Vital Signs - 24 hr 05/28/19 05/28/19 05/28/19 11:16 11:20 13:16 Temperature 37.0 C 37.0 C 37 C Heart Rate 80 77 78 Respiratory 15 14 14 Rate Blood Pressure 140/53 H 152/64 H 152/64 H O2 Saturation 99 98 05/28/19 05/28/19 05/28/19 13:20 13:23 14:38 Temperature 36.7 C 37 C Heart Rate 77 78 75 Respiratory 14 14 16 Rate Blood Pressure 152/64 H 151/64 H 146/63 H O2 Saturation 97 98 05/28/19 15:37 Temperature 36.8 C Heart Rate 72 Respiratory 14 Rate Blood Pressure 154/69 H O2 Saturation Oxygen O2 Source Room air - Labs Labs: Laboratory Tests 05/28/19 05/28/19 05/28/19 11:31 11:31 11:31 WBC 8.8 RBC 2.29 L Hgb 6.9 L* Hct 22.8 L MCV 99.6 H MCH 30.1 MCHC 30.3 L RDW 15.9 H Plt Count 276 MPV 9.5 Neut # (Auto) 6.5 Lymph # (Auto) 1.5 [place] # (Auto) 0.6 Eos # (Auto) 0.1 Baso # (Auto) 0.0 Absolute Nucleated RBC 0.00 Nucleated RBC % 0.0 Sodium 137 Potassium 3.8 Chloride 100 L Carbon Dioxide 28 Anion Gap 9.0 BUN 24 H Creatinine 2.0 H Estimated GFR (MDRD) 33 L Glucose 174 H Calcium 7.9 L Blood Type O POSITIVE Antibody Screen NEGATIVE Crossmatch IS Only See Detail PD MEDICAL DECISION MAKING - ED course Complexity details: considered differential, d/w patient, d/w family ED course: Given 1 unit of blood. He will follow-up with his architecture intern for erythropoietin. Patient counseled regarding signs and symptoms for which I believe and urgent re-evaluation would be necessary. Patient with good understanding of and agreement to plan and is comfortable going home at this time This document was made in part using voice recognition software. While efforts are made to proofread this document, sound alike and grammatical errors may occur. Departure - Departure Disposition: 01 Home, Self Care Clinical Impression: Anemia Qualifiers: Anemia type: unspecified type Qualified Code(s): D64.9 - Anemia, unspecified Condition: Good Instructions: ED Anemia Type Not Specified Follow-Up: Alen March DO [Primary Care Provider] - Within 1 week Comments: You were given a blood transfusion today. Follow-up with your doctor and your architecture intern for EPO injections. Return if you worsen Discharge Date/Time: 05/28/19 16:00
[2019-05-28 11:48] LABS: BASOPHILS % (AUTO) 0.3 %; EOSINOPHILS # (AUTO) 0.1 10^3/uL (0.0-0.7); LYMPHOCYTES # (AUTO) 1.5 10^3/uL (1.5-3.5); LYMPHOCYTES % (AUTO) 17.1 %; MEAN CORPUSCULAR HEMOGLOBIN 30.1 pg (27.0-31.0); MEAN CORPUSCULAR HGB CONC 30.3 g/dL (32.0-36.0); MEAN CORPUSCULAR VOLUME 99.6 fL (80.0-94.0); MEAN PLATELET VOLUME 9.5 fL (7.4-11.4); MONOCYTES # (AUTO) 0.6 10^3/uL (0.0-1.0); NEUTROPHILS # (AUTO) 6.5 10^3/uL (1.5-6.6); PLT - PLATELET COUNT 276 10^3/uL (130-450); RED BLOOD COUNT 2.29 10^6/uL (4.70-6.10); RED CELL DISTRIBUTION WIDTH 15.9 % (12.0-15.0); WHITE BLOOD COUNT 8.8 x10^3/uL (4.8-10.8)
[2019-05-28 11:53] LABS: CALCIUM 7.9 mg/dL (8.5-10.3)
[2019-05-28 11:57] LABS: HGB - HEMOGLOBIN 6.9 g/dL (14.0-18.0)
[2019-05-28 15:38] VITALS: BP 154/69
== END 2019-05-28 16:00 | disposition home or self-care (01) ==
LOC: ED 11:08
DX: D64.9 Anemia, unspecified (principal); Z99.2 Dependence on renal dialysis; N28.9 Disorder of kidney and ureter, unspecified; I10 Essential (primary) hypertension; E11.9 Type 2 diabetes mellitus without complications; Z79.4 Long term (current) use of insulin; Z79.82 Long term (current) use of aspirin; Z87.891 Personal history of nicotine dependence
CPT/HCPCS: 36415; 36430; 80048; 85025; 86850; 86900; 86901; 86920; 99284; 99285; P9016

== ENCOUNTER 2020-05-28 07:54 | Emergency (ER) | payer MEDICARE, OTHER ==
--- NOTE | 2020-05-28 07:58 | ED Physician Documentation ---
PD HPI CHEST PAIN - Stated complaint Stated Complaint: HIGH HEART RATE - History obtained from History obtained from: Patient - History of Present Illness Timing - onset: Today (He was in dialysis getting his normal treatment and was noted to have a heart rate 1 30-1 40s. He felt okay without any lightheadedness chest pain or dyspnea. However the run was stopped after just 2-1/2 hours and he was sent down to the ER for evaluation.) Timing - onset during: Rest Timing - details: Abrupt onset, Intermittant (As he has had similar feeling particularly in the mornings more often than not. He has been in being evaluated for irregular heartbeat feeling by cardiology and has a heart monitor on that he is worn for 2 weeks and is mailing back today) Quality: Tightness, Other (mostly just a skipping feeling and fast to his heartrate.). No: Pressure, Aching Location: Substernal Radiation: No: Neck, Back Worsened by: Exertion. No: Eating, Movement Similar symptoms before: No diagnosis (Is being evaluated for feeling of irregular heartbeat. Saw Dr. Hernandez in the office few weeks ago and had echocardiogram and EKG and subsequently a 2-week heart monitor that he is mailing back today) Recently seen: Clinic Review of Systems Constitutional: denies: Fever, Chills Nose: denies: Rhinorrhea / runny nose, Congestion Throat: denies: Sore throat Cardiac: reports: Palpitations. 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 - Present Medications Home Medications: Ambulatory Orders Medication Instructions Recorded Confirmed Aspirin Chewable [[place] 81 mg PO DAILY 12/03/13 01/20/19 Aspirin] Carvedilol [Coreg] 50 mg PO BID 12/03/13 01/20/19 Cholecalciferol (Vitamin D3) 2,000 unit PO DAILY 12/03/13 01/20/19 [Vitamin D3] Cinacalcet HCl [Sensipar] 30 mg PO Q48H 12/03/13 01/20/19 Krill Oil 500 mg PO DAILY 12/03/13 01/20/19 Levothyroxine Sodium [Synthroid] 25 mcg PO DAILY 12/03/13 01/20/19 Magnesium Oxide [Magnesium] 400 mg PO DAILY 12/03/13 01/20/19 Omeprazole [PriLOSEC] 20 mg PO DAILY 12/03/13 01/20/19 Potassium Chloride 20 meq PO BID 12/03/13 01/20/19 Vit 10/Iron/Folic/Dha 1 tab PO DAILY 12/03/13 01/20/19 [Vitafol-Ob+Dha Combo Pack] Rosuvastatin Calcium [Crestor] 20 mg PO DAILY 12/03/13 01/20/19 amLODIPine [Norvasc] 10 mg PO DAILY 12/03/13 01/20/19 cloNIDine HCL [Clonidine HCl] 0.2 mg PO TID 12/03/13 01/20/19 predniSONE [Deltasone] 5 mg PO DAILY 12/03/13 01/20/19 Insulin Aspart [Novolog] 7 - 12 units SUBQ AC 04/15/14 01/20/19 Insulin Glargine,Hum.rec.anlog 20 units SUBQ DAILY 04/15/14 01/20/19 [Lantus] Docusate Calcium 240 mg PO DAILY 06/11/18 01/20/19 Furosemide 20 mg PO DAILY 06/11/18 01/20/19 Insulin Admin. Supplies [Inpen 1 each SQ QID #120 insuln.pen 06/11/18 (For Novolog or Fiasp)] Tacrolimus [Prograf] 1 mg PO BID 06/11/18 01/20/19 Ondansetron Odt [Zofran Odt] 4 mg PO Q4HR PRN #40 tablet 01/20/19 Sodium Bicarbonate 650 mg PO TID 01/20/19 01/20/19 Oxycodone HCl/Acetaminophen 1 - 2 each PO Q6H PRN #14 tablet 04/13/19 [Percocet 5-325 mg Tablet] Metoprolol Succinate 50 mg PO BID #30 tab.er.24h 05/28/20 - Allergies Allergies/Adverse Reactions: Allergies Allergy/AdvReac Type Severity Reaction Status Date / Time No Known Drug Allergies Allergy Verified 05/28/20 08:08 - Social History Does the pt smoke?: No Smoking Status: Former smoker Does the pt drink ETOH?: No Does the pt have substance abuse?: No - Immunizations Immunizations are current?: Yes - POLST Patient has POLST: No POLST Status: Full Code PD ED PE NORMAL - Vitals Vital signs reviewed: Yes - General General: Alert and oriented X 3, No acute distress, Well developed/nourished - HEENT HEENT: Ears normal, Moist mucous membranes, Pharynx benign - Neck Neck: Supple, no meningeal sign, No adenopathy - Cardiac Cardiac: No: RRR (irregular and slightly tachycardic at 100-110) - Respiratory Respiratory: Clear bilaterally - Abdomen Abdomen: Normal bowel sounds, Soft, Non tender - Back Back: No CVA TTP - Derm Derm: Normal color, Warm and dry - Extremities Extremities: No deformity, No tenderness to palpate, No edema, No calf tenderness / cord - Neuro Neuro: Alert and oriented X 3, advanced developer 2-12 intact, No motor deficit Results - Vitals Vitals: Vital Signs - 24 hr 05/28/20 05/28/20 05/28/20 08:04 08:20 09:29 Temperature 36.0 C L Heart Rate 103 H 116 H 67 Respiratory 20 20 14 Rate Blood Pressure 131/86 H 140/74 H O2 Saturation 100 100 Oxygen O2 Source Room air - EKG (time done) 08:04 Rate: Rate (enter#) (105) Rhythm: Atrial fibrillation, Other (multiple PVCs) Ischemia: No: ST elevation c/w ischemia, ST depression Compare to prior EKG: Unchanged from prior EKG (morphology shape, but is fib and prior was NSR) 0:44 Rate: Rate (enter#) Rhythm: NSR Intervals: Normal ID QRS: Normal Ischemia: Normal ST segments. No: ST elevation c/w ischemia, ST depression - Labs Labs: Laboratory Tests 05/28/20 05/28/20 05/28/20 08:00 08:00 08:44 WBC 6.6 RBC 3.23 L Hgb 10.4 L Hct 32.5 L MCV 100.6 H MCH 32.2 H MCHC 32.0 RDW 14.6 Plt Count 163 MPV 9.2 Neut # (Auto) 4.3 Lymph # (Auto) 1.4 L [place] # (Auto) 0.7 Eos # (Auto) 0.2 Baso # (Auto) 0.0 Absolute Nucleated RBC 0.00 Nucleated RBC % 0.0 Sodium 133 L Potassium 4.3 Chloride 89 L Carbon Dioxide 26 Anion Gap 18.0 H BUN 56 H Creatinine 6.5 H Estimated GFR (MDRD) 8 L Glucose 154 H Calcium 8.7 Magnesium 2.2 Total Bilirubin 0.7 AST 11 ALT 10 Alkaline Phosphatase 105 Total Protein 7.9 Albumin 3.7 Globulin 4.2 Albumin/Globulin Ratio 0.9 L Lipase 88 H TSH 1.15 PD MEDICAL DECISION MAKING - ED course Complexity details: reviewed results, considered differential (Appears to be a fast rate A. fib episode but he had taken his morning carvedilol there at dialysis and his heart rate is slowing on route by EMS and on arrival here is about 110 and shortly after arrival converts to sinus rhythm without interve ntion), d/w patient, d/w sales representative consultant (still cleaner tube Cardiology, Dr. Palmer - directs changing pt from Carvedilol to Metoprolol still 50 mg BID. ) Departure - Departure Disposition: Home, Self Care Clinical Impression: Paroxysmal atrial fibrillation with rapid ventricular response Condition: Stable Record reviewed to determine appropriate education?: Yes Instructions: ED Afib Follow-Up: Alen March DO [Primary Care Provider] - Riley Hernandez MD [Physician No Access] - Prescriptions: Metoprolol Succinate 50 mg PO BID #30 tab.er.24h Comments: Mary was out of the office but I talked with Dr. Palmer who was senior safety management consultant covering. He suggested that we change from carvedilol to metoprolol 50 mg twice daily and see if it holds the rhythm in better control. See if you can get a an EKG and follow-up through your primary care next Sunday or Sunday and follow-up with Furniture Finisher Apprentice on the as planned. Return if further problems. Discharge Date/Time: 05/28/20 09:39
[2020-05-28 08:31] LABS: BASOPHILS % (AUTO) 0.5 %; EOSINOPHILS # (AUTO) 0.2 10^3/uL (0.0-0.7); EOSINOPHILS % (AUTO) 2.3 %; HGB - HEMOGLOBIN 10.4 g/dL (14.0-18.0); LYMPHOCYTES # (AUTO) 1.4 10^3/uL (1.5-3.5); LYMPHOCYTES % (AUTO) 20.7 %; MEAN CORPUSCULAR HEMOGLOBIN 32.2 pg (27.0-31.0); MEAN CORPUSCULAR VOLUME 100.6 fL (80.0-94.0); MEAN PLATELET VOLUME 9.2 fL (7.4-11.4); MONOCYTES # (AUTO) 0.7 10^3/uL (0.0-1.0); MONOCYTES % (AUTO) 11.1 %; NEUTROPHILS # (AUTO) 4.3 10^3/uL (1.5-6.6); NEUTROPHILS % (AUTO) 65.1 %; PLT - PLATELET COUNT 163 10^3/uL (130-450); RED BLOOD COUNT 3.23 10^6/uL (4.70-6.10); RED CELL DISTRIBUTION WIDTH 14.6 % (12.0-15.0); WHITE BLOOD COUNT 6.6 x10^3/uL (4.8-10.8)
[2020-05-28 08:45] LABS: ALBUMIN 3.7 g/dL (3.2-5.5); ALBUMIN/GLOBULIN RATIO 0.9 (1.0-2.2); BILIRUBIN,TOTAL 0.7 mg/dL (0.2-1.0); CALCIUM 8.7 mg/dL (8.5-10.3); CREATININE 6.5 mg/dL (0.6-1.2); MAGNESIUM 2.2 mg/dL (1.7-2.8); TOTAL PROTEIN 7.9 g/dL (6.7-8.2)
[2020-05-28 09:32] VITALS: BP 140/74
== END 2020-05-28 09:39 | disposition home or self-care (01) ==
LOC: ED 07:54
DX: I48.0 Paroxysmal atrial fibrillation (principal); I49.3 Ventricular premature depolarization; I10 Essential (primary) hypertension; E11.9 Type 2 diabetes mellitus without complications; Z79.4 Long term (current) use of insulin; Z99.2 Dependence on renal dialysis; Z79.82 Long term (current) use of aspirin; Z87.891 Personal history of nicotine dependence
CPT/HCPCS: 36415; 80053; 83690; 83735; 84443; 85025; 93005; 99284

== ENCOUNTER 2020-09-05 08:22 | Emergency (ER) | payer MEDICARE, OTHER ==
--- NOTE | 2020-09-05 08:33 | ED Physician Documentation ---
PD HPI DYSPNEA - Stated complaint Stated Complaint: SOA - History obtained from History obtained from: Patient - Additional information Additional information: 70-year-old gentleman who has diabetes, had a kidney transplant in with subsequent failure and now back on dialysis for the last 2 years. He also has atrial fibrillation and this morning awoke with "gasping for air." There is no associated cough, chest pain, pedal edema. He had a normal dialysis run on Sunday and says has not eaten any extra salt or fluid over the weekends. Denies pedal edema or calf pain. Review of Systems Ten Systems: 10 systems reviewed and negative Constitutional: denies: Fever, Chills Cardiac: denies: Chest pain / pressure, Pedal edema, Calf pain Respiratory: reports: Dyspnea. denies: Cough, Hemoptysis, Wheezing PD PAST MEDICAL HISTORY - Past Medical History Cardiovascular: Hypertension, High cholesterol Respiratory: None Endocrine/Autoimmune: Type 2 diabetes, HyPOthyroidism GI: GERD : Renal insuffiency, Other Psych: None Derm: None - Past Surgical History Past Surgical History: Yes General: Cholecystectomy, Appendectomy, Colonoscopy, Other (Renal transplant 2008 with subsequent failure and need for dialysis again 2018) - Present Medications Home Medications: Ambulatory Orders Medication Instructions Recorded Confirmed Aspirin Chewable [St [place]o 81 mg PO DAILY 12/03/13 09/05/20 Aspirin] Cholecalciferol (Vitamin D3) 2,000 unit PO DAILY 12/03/13 09/05/20 [Vitamin D3] Cinacalcet HCl [Sensipar] 30 mg PO Q48H 12/03/13 09/05/20 Krill Oil 500 mg PO DAILY 12/03/13 09/05/20 Levothyroxine Sodium [Synthroid] 25 mcg PO DAILY 12/03/13 09/05/20 Omeprazole [PriLOSEC] 20 mg PO DAILY 12/03/13 09/05/20 Rosuvastatin Calcium [Crestor] 20 mg PO DAILY 12/03/13 09/05/20 amLODIPine [Norvasc] 10 mg PO DAILY 12/03/13 09/05/20 cloNIDine HCL [Clonidine HCl] 0.2 mg PO TID 12/03/13 09/05/20 predniSONE [Deltasone] 5 mg PO DAILY 12/03/13 09/05/20 Insulin Aspart [Novolog] 7 - 12 units SUBQ AC 04/15/14 09/05/20 Insulin Glargine,Hum.rec.anlog 20 units SUBQ DAILY 04/15/14 09/05/20 [Lantus] Docusate Calcium 240 mg PO DAILY 06/11/18 09/05/20 Furosemide 20 mg PO DAILY 06/11/18 09/05/20 Insulin Admin. Supplies [Inpen 1 each SQ QID #120 insuln.pen 06/11/18 09/05/20 (For Novolog or Fiasp)] Sodium Bicarbonate 650 mg PO TID 01/20/19 09/05/20 Metoprolol Succinate 50 mg PO BID #30 tab.er.24h 05/28/20 09/05/20 - Allergies Allergies/Adverse Reactions: Allergies Allergy/AdvReac Type Severity Reaction Status Date / Time Sulfa (Sulfonamide Allergy Unknown Verified 09/05/20 08:36 Antibiotics) - Social History Does the pt smoke?: No Smoking Status: Former smoker Does the pt drink ETOH?: No Does the pt have substance abuse?: No - Family History Family history: reports: Non contributory - Immunizations Immunizations are current?: Yes - POLST Patient has POLST: No POLST Status: Full Code PD ED PE NORMAL - Vitals Vital signs reviewed: Yes - General General: Alert and oriented X 3, Other (Appears chronically but not acutely ill) - HEENT HEENT: PERRL, EOMI - Neck Neck: Supple, no meningeal sign, No bony TTP, Other (he does have JVD) - Cardiac Cardiac: No murmur, Other (irregularly irreg) - Respiratory Respiratory: No respiratory distress, Clear bilaterally - Abdomen Abdomen: Non tender, Other (ostomy RLQ) - Back Back: No CVA TTP, No spinal TTP - Derm Derm: Normal color, Warm and dry - Extremities Extremities: No edema, No calf tenderness / cord - Neuro Neuro: Alert and oriented X 3, Normal speech - Psych Psych: Normal mood, Normal affect Results - Vitals Vitals: Vital Signs - 24 hr 09/05/20 09/05/20 09/05/20 08:33 08:52 09:36 Temperature 36.1 C L Heart Rate 73 77 66 Respiratory 14 16 11 L Rate Blood Pressure 117/75 117/75 113/63 O2 Saturation 100 98 98 09/05/20 09/05/20 09/05/20 10:13 10:38 12:03 Temperature 36.2 C L Heart Rate 70 70 88 Respiratory 13 11 L 11 L Rate Blood Pressure 116/68 122/81 H 113/72 O2 Saturation 100 99 100 Oxygen O2 Source Room air - EKG (time done) 0836 Rate: Rate (enter#) (88) Rhythm: Atrial fibrillation [place]: Normal QRS: LVH Ischemia: Non specific changes Computer interpretation: Agree with computer - Labs Labs: Laboratory Tests 09/05/20 09/05/20 09/05/20 08:44 08:44 08:44 WBC 9.7 RBC 2.66 L Hgb 9.3 L Hct 30.3 L MCV 113.9 H MCH 35.0 H MCHC 30.7 L RDW 17.8 H Plt Count 172 MPV 9.9 Neut # (Auto) 7.5 H Lymph # (Auto) 1.5 [place] # (Auto) 0.5 Eos # (Auto) 0.2 Baso # (Auto) 0.0 Absolute Nucleated RBC 0.13 Nucleated RBC % 1.3 Manual Slide Review Indicated RBC Morph Micro Appear 2+ MACROCYTOSIS PT 12.6 INR 1.1 Sodium 140 Potassium 5.0 Chloride 96 L Carbon Dioxide 24 Anion Gap 20.0 H BUN 51 H Creatinine 7.3 H* Estimated GFR (MDRD) 7 L Glucose 196 H Calcium 8.4 L Total Bilirubin 0.6 AST 29 ALT 29 Alkaline Phosphatase 151 H Troponin I High Sens B-Natriuretic Peptide Total Protein 6.7 Albumin 3.2 Globulin 3.5 Albumin/Globulin Ratio 0.9 L Lipase 43 Nasal Adenovirus (PCR) Nasal B. parapertussis DNA (PCR) Nasal Coronavir 229E PCR Nasal Coronavir HKU1 PCR Nasal Coronavir NL63 PCR Nasal Coronavir OC43 PCR Nasal Enterovir/Rhinovir PCR Nasal Influenza B PCR Nasal Influenza A PCR Nasal Parainfluen 1 PCR Nasal Parainfluen 2 PCR Nasal Parainfluen 3 PCR Nasal Parainfluen 4 PCR Nasal RSV (PCR) Nasal B.pertussis DNA PCR Nasal C.pneumoniae (PCR) [place] Human Metapneumo PCR Nasal M.pneumoniae (PCR) Nasal SARS-CoV-2 (PCR) 09/05/20 09/05/20 09/05/20 08:44 08:44 10:05 WBC RBC Hgb Hct MCV MCH MCHC RDW Plt Count MPV Neut # (Auto) Lymph # (Auto) [place] # (Auto) Eos # (Auto) Baso # (Auto) Absolute Nucleated RBC Nucleated RBC % Manual Slide Review RBC Morph Micro Appear PT INR Sodium Potassium Chloride Carbon Dioxide Anion Gap BUN Creatinine Estimated GFR (MDRD) Glucose Calcium Total Bilirubin AST ALT Alkaline Phosphatase Troponin I High Sens 79.8 H* B-Natriuretic Peptide > 9000 H Total Protein Albumin Globulin Albumin/Globulin Ratio Lipase Nasal Adenovirus (PCR) NOT DETECTED Nasal B. parapertussis DNA (PCR) NOT DETECTED Nasal Coronavir 229E PCR NOT DETECTED Nasal Coronavir HKU1 PCR NOT DETECTED Nasal Coronavir NL63 PCR NOT DETECTED Nasal Coronavir OC43 PCR NOT DETECTED Nasal Enterovir/Rhinovir PCR NOT DETECTED Nasal Influenza B PCR NOT DETECTED Nasal Influenza A PCR NOT DETECTED Nasal Parainfluen 1 PCR NOT DETECTED Nasal Parainfluen 2 PCR NOT DETECTED Nasal Parainfluen 3 PCR NOT DETECTED Nasal Parainfluen 4 PCR NOT DETECTED Nasal RSV (PCR) NOT DETECTED Nasal B.pertussis DNA PCR NOT DETECTED Nasal C.pneumoniae (PCR) NOT DETECTED [place] Human Metapneumo PCR NOT DETECTED Nasal M.pneumoniae (PCR) NOT DETECTED Nasal SARS-CoV-2 (PCR) NOT DETECTED PD MEDICAL DECISION MAKING - ED course ED course: 70-year-old gentleman with end-stage renal disease and atrial fibrillation presents with shortness of breath today. Work-up demonstrates a single view chest x-ray interpreted contemporaneously by me showing mild cardiomegaly and interstitial prominence concerning for CHF. His troponin is in the 70s, his EKG is not to ischemic looking, and atrial fibrillation. He is rate controlled. BNP greater than 9000. I consider giving him Lasix but he says he really does not make urine of any significance. His blood pressure is controlled and therefore nitrates were held. He was given a small dose of beta-blockade, Lovenox, and atorvastatin. [facility] was called for transfer given his medical complexity and dialysis dependence at approximately 9:[address] Segal, hospitalist in [place]([id number]). He requests that I speak with Dr. Velásquez or whomever is on-call for him to confirm that the patient needs to come out prior to transfer. As long as the ammonia box operator thinks that transfer is appropriate he excepts though. He did request that we give him Lasix and he was given IV Lasix. Spoke with Dr. Carlisle, nephrology in [place] on-call for Dr. Velásquez who agreed with transfer and he will consult. Departure - Departure Disposition: 02 Transfer Acute Care Hosp Clinical Impression: History of renal transplant, Diabetes mellitus type 2 with complications, uncontrolled, ESRD (end stage renal disease) on dialysis, Elevated troponin CHF (congestive heart failure) Qualifiers: Heart failure type: unspecified Heart failure chronicity: acute Qualified Code(s): I50.9 - Heart failure, unspecified Condition: Serious
[2020-09-05 08:51] LABS: BASOPHILS % (AUTO) 0.4 %; EOSINOPHILS # (AUTO) 0.2 10^3/uL (0.0-0.7); EOSINOPHILS % (AUTO) 1.5 %; HGB - HEMOGLOBIN 9.3 g/dL (14.0-18.0); LYMPHOCYTES # (AUTO) 1.5 10^3/uL (1.5-3.5); LYMPHOCYTES % (AUTO) 14.9 %; MEAN CORPUSCULAR HGB CONC 30.7 g/dL (32.0-36.0); MEAN CORPUSCULAR VOLUME 113.9 fL (80.0-94.0); MEAN PLATELET VOLUME 9.9 fL (7.4-11.4); MONOCYTES # (AUTO) 0.5 10^3/uL (0.0-1.0); MONOCYTES % (AUTO) 5.6 %; NEUTROPHILS # (AUTO) 7.5 10^3/uL (1.5-6.6); NEUTROPHILS % (AUTO) 77.1 %; PLT - PLATELET COUNT 172 10^3/uL (130-450); RED BLOOD COUNT 2.66 10^6/uL (4.70-6.10); RED CELL DISTRIBUTION WIDTH 17.8 % (12.0-15.0); WHITE BLOOD COUNT 9.7 x10^3/uL (4.8-10.8)
[2020-09-05 09:00] LABS: INR 1.1 (0.8-1.2); PT - PROTHROMBIN TIME 12.6 secs (9.9-12.6)
--- NOTE | 2020-09-05 09:06 | XRAY Report ---
PROCEDURE: Chest 1 View X-Ray INDICATIONS: DYSPNEA TECHNIQUE: One view of the chest was acquired. COMPARISON: 01/19/2019, 01/15/2019 FINDINGS: Surgical changes and devices: None. Lungs and pleura: An incomplete inspiratory result is noted, with low lung volumes and crowding of t he vascular markings. No focal infiltrates are seen. Mild generalized interstitial prominence can be seen. No large pneumothorax or large pleural effusion can be seen. Mediastinum: The aorta is prominent and tortuous. The cardiac contours are mildly enlarged. Bones and chest wall: No suspicious bony lesions. Age-appropriate degenerative changes are seen. Overlying soft tissues appear unremarkable. IMPRESSION: Mild cardiomegaly and interstitial prominence. Please consider CHF. Reviewed by: Jya Jimenez MD on 09/05/2020 8:05 AM [facility] Approved by: Jay Jimenez MD on 09/05/2020 8:05 AM [facility] Station ID: [id number]
[2020-09-05 09:16] LABS: ALBUMIN 3.2 g/dL (3.2-5.5); ALBUMIN/GLOBULIN RATIO 0.9 (1.0-2.2); BILIRUBIN,TOTAL 0.6 mg/dL (0.2-1.0); CALCIUM 8.4 mg/dL (8.5-10.3); TOTAL PROTEIN 6.7 g/dL (6.7-8.2)
[2020-09-05 09:18] LABS: CREATININE 7.3 mg/dL (0.6-1.2)
[2020-09-05 09:33] LABS: RBC MORPHOLOGY (MULTIPLE) 2+ MACROCYTOSIS (NORMAL)
[2020-09-05] MEDS ORDERED: METOPROLOL 5 MG/5 ML VIAL IVP STA (09:47)
[2020-09-05] MEDS ORDERED: ENOXAPARIN 60 MG/0.6 ML SYRINGE SUBQ STA (09:47)
[2020-09-05] MEDS ORDERED: ATORVASTATIN 40 MG TABLET PO STA (09:47)
[2020-09-05] MEDS ORDERED: FUROSEMIDE 40 MG/4 ML VIAL IVP STA (09:56)
[2020-09-05 11:30] LABS: C. PNEUMONIAE- RESP PCR PANEL NOT DETECTED
[2020-09-05 12:04] VITALS: BP 113/72
== END 2020-09-05 13:12 | disposition short-term general hospital (02) ==
LOC: ED 08:22
DX: I13.2 Hypertensive heart and chronic kidney disease with heart failure and with stage 5 chronic kidney disease, or end stage renal disease (principal); I50.9 Heart failure, unspecified; E11.22 Type 2 diabetes mellitus with diabetic chronic kidney disease; N18.6 End stage renal disease; Z99.2 Dependence on renal dialysis; T86.12 Kidney transplant failure; Y83.0 Surgical operation with transplant of whole organ as the cause of abnormal reaction of the patient, or of later complication, without mention of misadventure at the time of the procedure; E11.65 Type 2 diabetes mellitus with hyperglycemia; Z79.4 Long term (current) use of insulin; I48.91 Unspecified atrial fibrillation; R79.89 Other specified abnormal findings of blood chemistry; Z20.822 Contact with and (suspected) exposure to COVID-19; Z79.82 Long term (current) use of aspirin; Z87.891 Personal history of nicotine dependence
CPT/HCPCS: 36415; 71045; 80053; 83690; 83880; 84484; 85025; 85610; 87631; 93005; 96374; 96375; 99285; A9270; J1650; 0202U

== ENCOUNTER 2020-09-15 14:19 | Emergency (ER) | payer MEDICARE, OTHER ==
[2020-09-15 15:01] LABS: BASOPHILS # (AUTO) 0.1 10^3/uL (0.0-0.1); BASOPHILS % (AUTO) 0.6 %; EOSINOPHILS # (AUTO) 0.1 10^3/uL (0.0-0.7); EOSINOPHILS % (AUTO) 0.6 %; LYMPHOCYTES # (AUTO) 0.8 10^3/uL (1.5-3.5); LYMPHOCYTES % (AUTO) 9.9 %; MEAN CORPUSCULAR HEMOGLOBIN 34.9 pg (27.0-31.0); MEAN CORPUSCULAR HGB CONC 31.1 g/dL (32.0-36.0); MEAN PLATELET VOLUME 10.5 fL (7.4-11.4); MONOCYTES # (AUTO) 0.5 10^3/uL (0.0-1.0); MONOCYTES % (AUTO) 6.3 %; NEUTROPHILS # (AUTO) 6.7 10^3/uL (1.5-6.6); NEUTROPHILS % (AUTO) 82.2 %; PLT - PLATELET COUNT 215 10^3/uL (130-450); RED BLOOD COUNT 2.58 10^6/uL (4.70-6.10); RED CELL DISTRIBUTION WIDTH 16.8 % (12.0-15.0); WHITE BLOOD COUNT 8.1 x10^3/uL (4.8-10.8)
--- NOTE | 2020-09-15 15:01 | ED Physician Documentation ---
History of Present Illness - Stated complaint Stated Complaint: FATIGUE,SOA - Chief complaint Chief Complaint: Cardiac - Additonal information Additional information: 70-year-old male presents the emergency department for evaluation of tachycardia and shortness of air. He reports to me that today during his 3-1/2-hour dialysis session he had heart rates greater than 100 but is unsure of the number. His reported to the nursing staff that his apple watch at home showed a heart rate of one 25-200. Here in the emergency department his monitored heart rate is sinus and just about 102. He did state that when he went home from dialysis he was fatigued and woke up gasping for air but is not gasping for air right now. Does have a history of diabetes as well as a kidney transplant in 2008 which ultimately failed and he has been on dialysis now for the last 2 years. 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 Patient denies any cough or chest pain. No abdominal pain nausea vomiting or diarrhea. He does not have any pedal edema. Review of Systems Constitutional: reports: Fatigue Eyes: reports: Reviewed and negative Nose: reports: Reviewed and negative Throat: reports: Reviewed and negative Cardiac: reports: Other (tachycardia) Respiratory: reports: Reviewed and negative GI: reports: Reviewed and negative : reports: Other (anuric) Skin: reports: Reviewed and negative PD PAST MEDICAL HISTORY - Past Medical History Cardiovascular: Hypertension, High cholesterol Respiratory: None Endocrine/Autoimmune: Type 2 diabetes, HyPOthyroidism GI: GERD : Renal insuffiency, Other Psych: None Derm: None - Past Surgical History Past Surgical History: Yes General: Cholecystectomy, Appendectomy, Colonoscopy, Other (Renal transplant 2008 with subsequent failure and need for dialysis again 2018) /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 - Present Medications Home Medications: Ambulatory Orders Medication Instructions Recorded Confirmed Aspirin Chewable [[place] 81 mg PO DAILY 12/03/13 09/05/20 Aspirin] Cholecalciferol (Vitamin D3) 2,000 unit PO DAILY 12/03/13 09/05/20 [Vitamin D3] Cinacalcet HCl [Sensipar] 30 mg PO Q48H 12/03/13 09/05/20 Krill Oil 500 mg PO DAILY 12/03/13 09/05/20 Levothyroxine Sodium [Synthroid] 25 mcg PO DAILY 12/03/13 09/05/20 Omeprazole [PriLOSEC] 20 mg PO DAILY 12/03/13 09/05/20 Rosuvastatin Calcium [Crestor] 20 mg PO DAILY 12/03/13 09/05/20 amLODIPine [Norvasc] 10 mg PO DAILY 12/03/13 09/05/20 cloNIDine HCL [Clonidine HCl] 0.2 mg PO TID 12/03/13 09/05/20 predniSONE [Deltasone] 5 mg PO DAILY 12/03/13 09/05/20 Insulin Aspart [Novolog] 7 - 12 units SUBQ AC 04/15/14 09/05/20 Insulin Glargine,Hum.rec.anlog 20 units SUBQ DAILY 04/15/14 09/05/20 [Lantus] Docusate Calcium 240 mg PO DAILY 06/11/18 09/05/20 Furosemide 20 mg PO DAILY 06/11/18 09/05/20 Insulin Admin. Supplies [Inpen 1 each SQ QID #120 insuln.pen 06/11/18 09/05/20 (For Novolog or Fiasp)] Sodium Bicarbonate 650 mg PO TID 01/20/19 09/05/20 Metoprolol Succinate 50 mg PO BID #30 tab.er.24h 05/28/20 09/05/20 - Allergies Allergies/Adverse Reactions: Allergies Allergy/AdvReac Type Severity Reaction Status Date / Time Sulfa (Sulfonamide Allergy Unknown Verified 09/15/20 14:23 Antibiotics) - Social History Does the pt smoke?: No Smoking Status: Former smoker Does the pt drink ETOH?: No Does the pt have substance abuse?: No - Immunizations Immunizations are current?: Yes - POLST Patient has POLST: No POLST Status: Full Code PD ED PE EXPANDED - General General: Alert, No acute distress - Neck Neck: Supple w/out meningeal sx. No: Adenopathy - Cardiac Cardiac: Regular Rate, Radial strong equal, Pedal strong equal, Cap refill < 2 sec. No: Murmur Present - Respiratory Respiratory: Clear to ausultation cody. No: Distress, Labored - Abdomen Abdomen: Normal Bowel sounds. No: Tender to palpation - Extremities Extremities: Normal, Other (AV Fistula left upper extremity positive bruit and thrill.). No: Deformity, Tenderness - Neuro Neuro: Alert and Oriented X 3, CNII-XII intact - GCS Eye Opening: Spontaneous Motor: Obeys Commands Verbal: Oriented Total: 15 Results - Vitals Vitals: Vital Signs - 24 hr 09/15/20 09/15/20 14:24 15:19 Temperature 36.5 C Heart Rate 100 104 H Respiratory 19 15 Rate Blood Pressure 106/59 L 121/78 O2 Saturation 92 98 Oxygen O2 Source Room air - EKG (time done) 1430 Rate: Rate (enter#) (104) Rhythm: Sinus tachycardia [place]: No: Normal Intervals: Normal MI. No: Prolonged QT (mildly prolonged/borderline) QRS: LVH Ischemia: Normal ST segments Compare to prior EKG: Unchanged from prior EKG Computer interpretation: Agree with computer - Labs Labs: Laboratory Tests 09/15/20 09/15/20 09/15/20 14:55 14:55 14:55 WBC 8.1 RBC 2.58 L Hgb 9.0 L Hct 28.9 L MCV 112.0 H MCH 34.9 H MCHC 31.1 L RDW 16.8 H Plt Count 215 MPV 10.5 Neut # (Auto) 6.7 H Lymph # (Auto) 0.8 L Floyd # (Auto) 0.5 Eos # (Auto) 0.1 Baso # (Auto) 0.1 Absolute Nucleated RBC 0.02 Nucleated RBC % 0.2 Sodium 130 L Potassium 5.0 Chloride 88 L Carbon Dioxide 25 Anion Gap 17.0 H BUN 20 Creatinine 4.5 H Estimated GFR (MDRD) 13 L Glucose 220 H Calcium 7.8 L Total Bilirubin 1.1 H AST 49 H ALT 70 H Alkaline Phosphatase 134 H Troponin I High Sens 56.0 H* Total Protein 7.3 Albumin 3.2 Globulin 4.1 Albumin/Globulin Ratio 0.8 L Lipase 25 - Rads (name of study) CXR Radiology: Final report received (Cardiomegaly. Consider CHF. Unchanged from 09/05/2020) PD MEDICAL DECISION MAKING - ED course Complexity details: reviewed results, re-evaluated patient, considered differential, d/w patient ED course: 70-year-old male who is on 3X weekly dialysis and was last dialyzed this am presents to the emergency department for evaluation of tachycardia during dialysis and shortly thereafter. His reported to this provider that his heart rate on the watch was about 120 after dialysis. However here in the emergency department he has been in sinus rhythm with a heart rate that has not varied and has been just above 100 the entire time. We have noted no tachyarrhythmias or significant ectopy. Screening labs today are essentially unchanged from baseline. Known anemia without any significant changes. He does have an elevated troponin here in the emergency department though this is likely in the troponin leak in the setting of his renal failure. It is certainly lower than at the last visit. Patient is denying chest pain at this time and his EKG is nonischemic and essentially unchanged. Chest x-ray is suggestive of cardiomegaly and perhaps heart failure but he has no hypoxia or crackles on exam. No lower extremity swelling or edema. Chest x-ray is reassuringly unchanged from last visit. The second concern that the patient reports is that he wakes up gasping for air. Here in the emergency department he is noted to sleep during the stay. He does have brief periods of apnea and did in fact wake up gasping. I discussed this with the patient and his that he likely needs referral for a sleep study as well as a mask to help with the situation at home. Emergent return precautions were discussed. Patient will follow up with his primary doctor. Departure - Departure Disposition: 01 Home, Self Care Clinical Impression: Shortness of breath, Tachycardia Sleep apnea syndrome Qualifiers: Sleep apnea type: unspecified type Qualified Code(s): G47.30 - Sleep apnea, unspecified Condition: Stable Record reviewed to determine appropriate education?: Yes Instructions: ED Apnea Sleep Obstructive Comments: It is important that you discuss with your doctor this emergency department visit. The episodes when you wake up gasping for air are consistent with sleep apnea. Your primary doctor should order a sleep study. Based on these test results a sleep mask or apnea machine may be ordered to help you with breathing while sleeping. Here in the emergency department today your labs are unchanged from your known baseline. Your chest x-ray did not show any changes from your last visit. It is common to have a little bit of elevated heart rate shortly after dialysis. However your heart rates here in the emergency department have been essentially normal. Return to the emergency department if you have a resting heart rate greater than 130 that does not improve with rest, you develop chest pain or have any fainting episodes.
[2020-09-15 15:31] LABS: ALBUMIN 3.2 g/dL (3.2-5.5); ALBUMIN/GLOBULIN RATIO 0.8 (1.0-2.2); BILIRUBIN,TOTAL 1.1 mg/dL (0.2-1.0); CALCIUM 7.8 mg/dL (8.5-10.3); CREATININE 4.5 mg/dL (0.6-1.2); TOTAL PROTEIN 7.3 g/dL (6.7-8.2)
--- NOTE | 2020-09-15 15:43 | XRAY Report ---
PROCEDURE: Chest 1 View X-Ray INDICATIONS: Chest pain TECHNIQUE: One view of the chest was acquired. COMPARISON: Chest x-ray, one view, 09/05/2020. FINDINGS: Surgical changes and devices: None. Lungs and pleura: Slightly prominent vascularity. Possible trace pleural effusions. Mild left basila r atelectasis. No pneumothorax. Lungs are clear. Mediastinum: Mediastinal contours appear normal. Heart size is increased. Bones and chest wall: No suspicious bony lesions. Overlying soft tissues appear unremarkable. IMPRESSION: Mild cardiomegaly and possible mild CHF. Reviewed by: Marcos Maldonado MD on 09/15/2020 3:42 PM PST Approved by: Marcos Maldonado MD on 09/15/2020 3:42 PM PST Station ID: [id number]
[2020-09-15 16:51] VITALS: BP 118/75
== END 2020-09-15 16:40 | disposition home or self-care (01) ==
LOC: ED 14:19
DX: R06.02 Shortness of breath (principal); R00.0 Tachycardia, unspecified; G47.30 Sleep apnea, unspecified; T86.11 Kidney transplant rejection; Y83.0 Surgical operation with transplant of whole organ as the cause of abnormal reaction of the patient, or of later complication, without mention of misadventure at the time of the procedure; Z99.2 Dependence on renal dialysis; D64.9 Anemia, unspecified; I10 Essential (primary) hypertension; E11.9 Type 2 diabetes mellitus without complications; Z79.4 Long term (current) use of insulin; Z79.82 Long term (current) use of aspirin; Z87.891 Personal history of nicotine dependence
CPT/HCPCS: 36415; 80053; 83690; 84484; 85025; 93005; 99283; 99284